=== PATIENT | male | born 1945 | race African-American/Black ===

== ENCOUNTER 2016-09-16 21:14 | Inpatient (IN) ==
--- NOTE | 2016-09-16 21:50 | Emergency Department Note ---
Richard Portillo Gwan, am scribing for, and in the presence of, Christopher Obregon MD 21:42. Sabas Portillo Robert M, MD, personally performed the services described in this documentation, ascribed by Ramakrishna Ramos in my presence, and it is both accurate and complete . Arrival - Arrival Chief Complaint: Shortness of Breath Stated Complaint: short of breath ED Nursing Triage Note: Pt transfer from [facility] with CHF exacerbation. Pt was given 100mg Lasix IV and has had a total urine oupt of 3400liters. Pt stable at this time. EKG obatined during triage. Mode of Arrival: Stretcher Limitations: No Limitations Source: Patient, Old Records Reviewed, RN Notes Reviewed Time Seen by Provider: 09/16/16 21:24 - History of Present Illness HPI Narrative: Patient is a 71 y/o black male who presents to the ED via EMS transferred from [facility] for further evaluation of CHF exacerbation. Patient confiremd that his sxs of chest pain and SOB onset 1 week ago and began to worsen prompting his visit to [facility]. After further review, pt was prompted to report to [place] ED for further evaluation. Patient denies any fever. While at [facility]; pt recieved 100mg Lasix with result of 3400 liters void. During exam , pt appeared stable with no signs of distress. Onset (ago): hour(s) Consistency: constant Severity: moderate Allergies/Adverse Reactions: Allergies Allergy/AdvReac Type Severity Reaction Status Date / Time iodine Allergy Vomiting Verified 09/16/16 21:24 Shellfish AdvReac Abdominal Verified 09/16/16 21:24 Pain Home Medications: Home Medications Medication Instructions Recorded Confirmed Type Albuterol Inhaler [Proventil 1 puff INH Q6H PRN #1 inhaler 12/31/14 05/15/16 Rx Inhaler] Aspirin [Ecotrin] 81 mg PO DAILY 12/31/14 05/15/16 History Furosemide Tab [Lasix Tab] 80 mg PO BID DIURETIC 12/31/14 05/15/16 History Gabapentin Cap/Tab [Neurontin 600 mg PO BID 12/31/14 05/15/16 History Cap/Tab] Glimepiride [Amaryl] 4 mg PO BID W/MEALS 12/31/14 05/15/16 History Insulin Glargine [Lantus] 45 unit SUBCUT BEDTIME 12/31/14 05/15/16 History Ipratropium/Albuterol Sulfate 3 ml IH 5X DAILY 12/31/14 05/15/16 History [Iprat-Albut 0.5-3(2.5) mg/3 ml] Isosorbide Mononitrate [Imdur] 60 mg PO DAILY 12/31/14 05/15/16 History Linaclotide [Linzess] 145 mcg PO AC BREAKFAST 12/31/14 05/15/16 History Memantine [Namenda] 7 mg PO DAILY 12/31/14 05/15/16 History Nitroglycerin [Nitroglycerin SL 0.4 mg SL Q5M PRN 12/31/14 05/15/16 History Tab] Pantoprazole Tab [Protonix Tab] 20 mg PO BID 12/31/14 05/15/16 History Potassium Chloride Cap/Tab [K Dur] 20 meq PO TID 12/31/14 05/15/16 History Ramipril [Altace] 10 mg PO DAILY 12/31/14 05/15/16 History Warfarin [Coumadin] 5 mg PO QOTHER DAY 12/31/14 05/15/16 History metOLazone [Zaroxolyn] 2.5 mg PO DAILY 12/31/14 05/15/16 History Albuterol Inhaler [Proventil 2 puff INH Q4H PRN #1 inhaler 07/22/15 05/15/16 Rx Inhaler] Baclofen Tab [Lioresal] 10 mg PO BEDTIME 07/22/15 05/15/16 History Oxycodone HCl/Acetaminophen 1 tablet PO 5X DAILY PRN 07/22/15 05/15/16 History [Percocet 10-325 mg Tablet] Warfarin [Coumadin] 2.5 mg PO QOTHER DAY 07/22/15 05/15/16 History Alum/Mag/Simeth Max Str Liquid 30 ml PO Q4H PRN #0 udcup 07/26/15 05/15/16 Rx [Mylanta Max Strength Liquid] Azithromycin [Zithromax] 500 mg PO DAILY 7 Days 07/26/15 05/15/16 Rx Budesonide/Formoterol 160-4.5 2 puff INH BID #1 inhaler 07/26/15 05/15/16 Rx [Symbicort 160-4.5] Carvedilol [Coreg] 12.5 mg PO BID tablet 07/26/15 05/15/16 Rx Magnesium Chloride [Slow Mag] 64 mg PO BID tablet 07/26/15 05/15/16 Rx predniSONE TAB [PredniSONE] 20 mg PO DAILY #10 tablet 07/26/15 05/15/16 Rx Ciprofloxacin Tab [Cipro Tab] 500 mg PO BID #14 tablet 05/16/16 Rx Review of System - Review of System 12 point system: reviewed and no additional remarkable complaints except as stated - Review of System Constitutional: Absent: chills, fever Eyes: Absent: discharge, pain Head/Ears/Nose/Throat: Absent: earache Respiratory: Present: as per HPI, other (shortness of breathe ) Cardiovascular: Present: as per HPI, chest pain Gastrointestinal: Absent: abdominal pain, nausea, vomiting, diarrhea Genitourinary male: Absent: urgency, dysuria Musculoskeletal: Absent: arm pain, back pain, leg pain, neck pain Skin: Absent: rash, lesions Neurological: Absent: headache, weakness Medical,Surgical,& Family Hx - Medical History Cardio: History of: Congenital Heart Disease, Hypertension, [place], Pacemaker Neurology: History of: Cerebrovascular Accident (with residual left lower extremity weakness) No history of: Seizures Endocrine: History of: Diabetes Mellitus (IDDM), Dyslipidemia Respiratory: History of: COPD, Pneumonia - Surgical History Cardiac Surgeries: Sugical HX of: Cardiac Surgery (triple bypass), Internal Defibrillator Orthopedic Surgeries: Surgical HX of;: Orthopedic Surgery (right rotator cuff) - Family History Family History: Reports;: Family Hypertension - Social History Smoking Status: Current every day smoker Frequency of Alcohol Use: None Type of Drug Use: None Exam Vital Signs: Vital Signs Temperature 98.6 F 09/16/16 21:18 Pulse Rate 102 H 09/16/16 21:18 Respiratory Rate 18 09/16/16 21:35 Blood Pressure 156/115 09/16/16 21:18 O2 Sat by Pulse Oximetry 90 L 09/16/16 21:18 - General General appearance: alert, in no apparent distress - Head Head exam: Present: atraumatic, normocephalic - Eye Eye exam: Present: normal appearance, PERRL, EOMI - ENT ENT exam: Present: normal oropharynx, mucous membranes moist, TM's normal bilaterally, normal external ear exam - Neck Neck exam: Present: full ROM, trachea midline. Absent: tenderness - Chest Chest inspection: Present: symmetric chest wall rise. Absent: tenderness - Abdominal Exam Abdominal exam: Present: soft, normal bowel sounds. Absent: tenderness - Extremities Exam Extremities exam: Present: full ROM. Absent: tenderness - Back Exam Back exam: Present: full ROM. Absent: tenderness - Neurological Exam Neurological exam: Present: alert, oriented X3, CN II-XII intact. Absent: motor sensory deficit - Psychiatric Psychiatric exam: Present: normal affect, normal mood - Skin Skin exam: Present: warm, dry, intact, normal color Course - Consultations Consultation #1: Dr. Scot Steward will evaluate and admit the patient. Time: 22:52 Disposition Clinical Impression: Congestive heart failure, Chronic low back pain with bilateral sciatica, Bronchitis, Non-cardiac chest pain, COPD (chronic obstructive pulmonary disease) Case discussed with: patient, patient's family Disposition: Still a Patient Condition: Stable Time of Disposition: 22:52
--- NOTE | 2016-09-16 22:58 | Hospitalist History & Physical ---
Assessment and Plan (1) Acute exacerbation of CHF (congestive heart failure) Status: Acute Current Visit: Yes (2) COPD (chronic obstructive pulmonary disease) Status: Acute Current Visit: Yes (3) Chronic low back pain with bilateral sciatica Status: Acute Current Visit: Yes (4) Congestive heart failure Status: Acute Assessment and plan: Our plan for this patient will be diuresis with Lasix. Will consult cardiology since that he is a patient of Dr. Lagunas. Will have schedule breathing treatments for this patient. It does seem more like a congestive heart failure exacerbation over a COPD exacerbation. Current Visit: Yes History of Present Illness Chief complaint: Shortness of breath History of present illness: Mr. Kim is a 71 year old male with past medical history significant for COPD congestive heart failure chronic back pain who was in his normal state of health till today. Patient reports that his feet and hands it swelled up today. His reports that he is O2 sats were low and is complaining about shortness of breath. She increase his oxygen. Patient's been having some chest pain off and on. He says is not stabbing just a tight sensation. He notes that he cannot lay down flat at times. He went to [facility] and they called who was residential direct support professional for Dr. Lagunas's office. The recommended that he be sent up to our emergency room for further evaluation. Patient was given IV Lasix reports feeling much better I was consulted for admission. I am admitting him to the ER. Home Medications Medication Instructions Recorded Confirmed Type Albuterol Inhaler [Proventil 1 puff INH Q6H PRN #1 inhaler 12/31/14 05/15/16 Rx Inhaler] Aspirin [Ecotrin] 81 mg PO DAILY 12/31/14 05/15/16 History Furosemide Tab [Lasix Tab] 80 mg PO BID DIURETIC 12/31/14 05/15/16 History Gabapentin Cap/Tab [Neurontin 600 mg PO BID 12/31/14 05/15/16 History Cap/Tab] Glimepiride [Amaryl] 4 mg PO BID W/MEALS 12/31/14 05/15/16 History Insulin Glargine [Lantus] 45 unit SUBCUT BEDTIME 12/31/14 05/15/16 History Ipratropium/Albuterol Sulfate 3 ml IH 5X DAILY 12/31/14 05/15/16 History [Iprat-Albut 0.5-3(2.5) mg/3 ml] Isosorbide Mononitrate [Imdur] 60 mg PO DAILY 12/31/14 05/15/16 History Linaclotide [Linzess] 145 mcg PO AC BREAKFAST 12/31/14 05/15/16 History Memantine [Namenda] 7 mg PO DAILY 12/31/14 05/15/16 History Nitroglycerin [Nitroglycerin SL 0.4 mg SL Q5M PRN 12/31/14 05/15/16 History Tab] Pantoprazole Tab [Protonix Tab] 20 mg PO BID 12/31/14 05/15/16 History Potassium Chloride Cap/Tab [K Dur] 20 meq PO TID 12/31/14 05/15/16 History Ramipril [Altace] 10 mg PO DAILY 12/31/14 05/15/16 History Warfarin [Coumadin] 5 mg PO QOTHER DAY 12/31/14 05/15/16 History metOLazone [Zaroxolyn] 2.5 mg PO DAILY 12/31/14 05/15/16 History Albuterol Inhaler [Proventil 2 puff INH Q4H PRN #1 inhaler 07/22/15 05/15/16 Rx Inhaler] Baclofen Tab [Lioresal] 10 mg PO BEDTIME 07/22/15 05/15/16 History Oxycodone HCl/Acetaminophen 1 tablet PO 5X DAILY PRN 07/22/15 05/15/16 History [Percocet 10-325 mg Tablet] Warfarin [Coumadin] 2.5 mg PO QOTHER DAY 07/22/15 05/15/16 History Alum/Mag/Simeth Max Str Liquid 30 ml PO Q4H PRN #0 udcup 07/26/15 05/15/16 Rx [Mylanta Max Strength Liquid] Azithromycin [Zithromax] 500 mg PO DAILY 7 Days 07/26/15 05/15/16 Rx Budesonide/Formoterol 160-4.5 2 puff INH BID #1 inhaler 07/26/15 05/15/16 Rx [Symbicort 160-4.5] Carvedilol [Coreg] 12.5 mg PO BID tablet 07/26/15 05/15/16 Rx Magnesium Chloride [Slow Mag] 64 mg PO BID tablet 07/26/15 05/15/16 Rx predniSONE TAB [PredniSONE] 20 mg PO DAILY #10 tablet 07/26/15 05/15/16 Rx Ciprofloxacin Tab [Cipro Tab] 500 mg PO BID #14 tablet 05/16/16 Rx Allergies Allergy/AdvReac Type Severity Reaction Status Date / Time iodine Allergy Vomiting Verified 09/16/16 21:24 Shellfish AdvReac Abdominal Verified 09/16/16 21:24 Pain Medical,Surgical,& Family Hx - Medical History Cardio: History of: Congenital Heart Disease, Hypertension, [place], Pacemaker Neurology: History of: Cerebrovascular Accident (with residual left lower extremity weakness) No history of: Seizures Endocrine: History of: Diabetes Mellitus (IDDM), Dyslipidemia Respiratory: History of: COPD, Pneumonia - Surgical History Cardiac Surgeries: Sugical HX of: Cardiac Surgery (triple bypass), Internal Defibrillator Orthopedic Surgeries: Surgical HX of;: Orthopedic Surgery (right rotator cuff) - Family History Family History: Reports;: Family Hypertension - Social History Smoking Status: Current every day smoker Frequency of Alcohol Use: None Type of Drug Use: None 12 point system: reviewed and no additional remarkable complaints except as stated Exam - Constitutional Vitals: Period Temp Pulse Resp BP Sys/Gutiérrez Pulse Ox Last 24 Hr 98.6 F-98.6 F 102-102 18-18 156-156/115-115 90 - General General appearance: alert, in no apparent distress - Head Head exam: Present: atraumatic, normocephalic - Eye Eye exam: Present: normal appearance, PERRL, EOMI - ENT ENT exam: Present: normal oropharynx, mucous membranes moist, TM's normal bilaterally, normal external ear exam - Neck Neck exam: Present: full ROM, trachea midline. . - Chest Chest inspection: Present: symmetric chest wall rise. Irregular irregular . - Abdominal Exam Abdominal exam: Present: soft, normal bowel sounds. . - Extremities Exam Extremities exam: Present: full ROM. Some bilateral edema noted in lower extremities - Back Exam Back exam: Present: full ROM. Absent: tenderness - Neurological Exam Neurological exam: Present: alert, oriented X3, CN II-XII intact. - Psychiatric Psychiatric exam: Present: normal affect, normal mood - Skin Skin exam: Present: warm, dry, intact, normal color Results - Labs Labs: Labs from outside facility white count 5.3 hemoglobin 11.3 hematocrit 35.7 platelet count 122 albumin 3.9 alk phos 81 ALT 25 AST 26 BUN 13 calcium 9.0 creatinine 1.22 carbon dioxide 27 glucose 223 potassium 4.2 chloride sodium 144 total bili 0.3 total protein 6.9 troponin was less than 0.03 proBNP was 2894
[2016-09-16] MEDS ORDERED: MAGNESIUM SULF RIDER 2 GM in PREMIX 1 EACH IV PRN (23:03)
[2016-09-16] MEDS ORDERED: ONDANSETRON 4 MG/2 ML VIAL IV PRN (23:03)
[2016-09-16] MEDS ORDERED: MAGNESIUM SULF RIDER 4 GM in PREMIX 1 EACH IV PRN (23:03)
[2016-09-16] MEDS ORDERED: GLUCAGON 1 MG VIAL IM PRN ×2 (23:03)
[2016-09-16] MEDS ORDERED: DEXTROSE 50% 25 GM/50 ML VIAL IV PRN ×2 (23:03)
[2016-09-16] MEDS ORDERED: ALBUTEROL 1.25 MG/3 ML NEB RESP TX PRN (23:26)
[2016-09-17] MEDS: ALBUTEROL/IPRATROPIUM 3 ML NEB RESP TX SCH ×4 (00:32→19:05)
[2016-09-17] MEDS: NITROGLYCERIN 2% OINT 1 INCH/GM PACK TOP SCH ×2 (00:55→06:57)
[2016-09-17 02:45] LABS: Basophils % 0.2 % (0.0-0.8); Hematocrit 34.4 VOL% (42.0-52.0); Hemoglobin 11.5 GM/DL (14.0-18.0); Immature Granulocytes % 0.2 %; Immature Granulocytes Absolute 0.01 #; Lymphocytes # 0.8 10*3/uL (1.4-4.0); Lymphocytes % 18.2 % (21.2-54.2); Mean Corpuscular HGB Conc 33.4 GM/DL (32-36); Mean Corpuscular Hemoglobin 30 PG (27-34); Mean Corpuscular Volume 89.6 FL (87-102); Mean Platelet Volume 11.1 FL (9.6-12.0); Monocytes # 0.1 10*3/uL (0.11-0.8); Monocytes % 2.7 % (1.7-12.7); Neutrophils # 3.5 10*3/uL (1.4-7.4); Neutrophils % 78.7 % (38.7-73.9); Platelet Count 132 T/CUMM (130-400); Red Blood Count 3.84 MC/CUMM (3.8-5.5); Red Cell Distribution Width 13.8 % (9.3-17.3); White Blood Count 4.4 T/CUMM (4-12)
[2016-09-17 03:04] LABS: INR 1.4; PT Patient Result 15.3 SECS
[2016-09-17 03:27] LABS: Troponin I Only < 0.015 NG/ML (0.00-0.045)
[2016-09-17 03:29] LABS: Albumin 3.5 G/DL (3.4-5.0); Bilirubin,Total 0.5 MG/DL (0.2-1.0); Calcium 8.9 MG/DL (8.5-10.1); Osmolality,Calculated 290.4 MOS/KG (273-304); Potassium 3.6 MMOL/L (3.5-5.1); Total Protein 7.1 G/DL (6.4-8.3)
[2016-09-17] MEDS ORDERED: POTASSIUM CHLORIDE 20 MEQ TABLET PO ONE (07:39)
--- NOTE | 2016-09-17 07:40 | XRay Report ---
Portable chest Date: 09/17/2016 Clinical history: Shortness of breath Comparison: 09/16/2016 Technique: Portable AP sitting chest Findings: The heart remains minimally enlarged with prior median sternotomy and stable left subclavian atrioventricular AICD. Progressive parenchymal findings at the right lung base with small right pleural effusion. Stable mediastinum and osseous structures. Post operative findings in the right shoulder. Impression: Progressive infiltration or other pleural-based pathology at the right lung base with small right pleural effusion. Status post median sternotomy with chronic scarring. Stable left subclavian atrioventricular pacemaker. Follow-up chest x-ray recommended. PROCEDURE INTERPRETED AT [facility] DEPARTMENT OF RADIOLOGY Final Report Signed by: Dr. Catherine Marquis
[2016-09-17] MEDS: FUROSEMIDE 40 MG/4 ML VIAL IV SCH ×2 (08:20→16:51)
[2016-09-17] MEDS: INSULIN REGULAR 100 UNIT/ML SUBCUT SCH ×4 (08:20→21:38)
[2016-09-17] MEDS ORDERED: hydrALAZINE 20 MG/1 ML VIAL IV PRN (08:45)
--- NOTE | 2016-09-17 08:55 | Cardiology Consult Note ---
Assessment and Plan - Time spent with patient Time spent with patient: Greater than 30 minutes (1) Acute exacerbation of CHF (congestive heart failure) Status: Acute Assessment and plan: SEE PLAN OF CARE LISTED BELOW Current Visit: Yes Qualifiers: Congestive heart failure type: systolic Qualified Code(s): I50.23 - Acute on chronic systolic (congestive) heart failure (2) Atrial fibrillation Status: Acute Assessment and plan: SEE PLAN OF CARE LISTED BELOW Current Visit: Yes Qualifiers: Atrial fibrillation type: chronic Qualified Code(s): I48.2 - Chronic atrial fibrillation (3) COPD with exacerbation Status: Acute Current Visit: No (4) Chronic anticoagulation Status: Chronic Assessment and plan: SEE PLAN OF CARE LISTED BELOW Current Visit: Yes (5) Hypertension Status: Chronic Assessment and plan: SEE PLAN OF CARE LISTED BELOW Current Visit: Yes (6) Dyslipidemia Status: Chronic Assessment and plan: SEE PLAN OF CARE LISTED BELOW Current Visit: Yes (7) Coronary artery disease involving coronary bypass graft Status: Chronic Assessment and plan: SEE PLAN OF CARE LISTED BELOW Current Visit: Yes (8) Diabetes Status: Chronic Assessment and plan: SEE PLAN OF CARE LISTED BELOW Current Visit: Yes Qualifiers: Diabetes mellitus type: type 2 (9) Smoker Status: Chronic Assessment and plan: SEE PLAN OF CARE LISTED BELOW Current Visit: Yes (10) Dyspnea on exertion Status: Acute Assessment and plan: SEE PLAN OF CARE LISTED BELOW Current Visit: Yes (11) Ischemic cardiomyopathy Status: Chronic Assessment and plan: SEE PLAN OF CARE LISTED BELOW Current Visit: Yes History of Present Illness - Data of Consult Patient: known to practice within the last 3 years Consult date: 09/17/16 Requesting Physician: Scot Steward - Consult Narrative Reason for consult: CP, SOB; CHF EXAC History of present illness: Sample Worker: Dr. Lagunas Mr. Kim is a 71 year old male with known history of coronary artery disease, routinely followed by Dr. Lagunas. Patient was transferred to [facility] with complaints of chest pain and shortness of breath he has cardiac risk factors significant for known history of coronary artery disease, diabetes, hypertension, advanced age, sedentary lifestyle and current everyday smoker. patient has a past medical history of dementia, atrial fibrillation (chronically anticoagulated with Coumadin), ischemic cardiomyopathy (most recent ejection fraction 25% in 2011) and COPD. Patient underwent coronary artery bypass grafting in 2002 with ALCANTAR to LAD, SVG to circumflex artery and SVG to diagonal. Patient's most recent heart catheterization was performed in [address] Lagunas. At that time, 1 of the 3 grafts were patent with a ALCANTAR graft to LAD widely patent without evidence of significant stenosis. Diffuse severe left ventricular hypokinesis, overall ejection fraction in the 25% range. SVG to marginal completely occluded and SVG to diagonal completely occluded. Widely patent stent to the circumflex artery. Patient has not followed up in the cardiology clinic in several years. Patient was transferred from [facility] yesterday evening with complaints of chest pain and shortness of breath. Patient is a very poor historian as he has history of dementia. When asked the same question 3 different times, he will give 3 different answers. Review of systems is very unreliable. Patient was seen and examined on the telemetry unit with Dr. Temple. He reports that he was never having any chest pain, heaviness or tightness in that he presented to the emergency department with complaints of abdominal pain. He does confirm dyspnea on exertion and that he cannot walk very far without tiring out. Subsequently, he reported to the emergency department for further evaluation. Upon arrival [facility] he was noted to be in atrial fibrillation with RVR. He was then transported to [facility] for further evaluation. At our facility, Troponin has been negative 1. EKG revealed atrial fibrillation with a controlled ventricular response with ST changes anteriolaterally. Chest x-ray reveals progressive parenchymal findings in the right lung base with small right pleural effusion. Cardiomegaly is noted. Echocardiogram has been ordered per hospital medicine, results are pending. On exam, patient does have a wheezing along with hepatojugular reflux. Patient symptoms are most likely multifactorial including congestive heart failure and COPD exacerbation. CHF exacerbation could possibly be secondary to patient's atrial fibrillation with RVR. Patient has chronic atrial fibrillation, now rate controlled. At this point, we will diurese patient with IV Lasix and continue his heart failure medication regimen. Await echocardiogram results. Continue to cycle cardiac biomarkers and EKGs as patient does have history of coronary artery disease and this could be playing a factor as well. Will discuss with Dr. Temple and await his additional recommendations. ASSESSMENT/PLAN: 1. CHF EXACERBATION, ACUTE ON CHRONIC SECONDARY TO SYSTOLIC DYSFUNCTION - Patient's most recent ejection fraction was noted to be 25% per her last heart catheterization 2011. Echocardiogram has been ordered, results are pending in order to reassess patient's LV function. Continue IV diuresis with Lasix as patient is diuresing well. Daily weights and strict I's and O's. Will make further recommendations after echocardiogram has been reviewed. 2. ATRIAL FIBRILLATION WITH RVR - This appears to be chronic. Suspect that this could have exacerbated patient's congestive heart failure. BNP pending. Now rate controlled with current medication regimen. Historically, he has been anticoagulated with Coumadin. INR today is subtherapeutic at 1.4. Once patient's home medications have been confirmed per nursing staff we will reinitiate patient's Coumadin. Monitor with daily INR. 3. CAD, STATUS POST CABG - Patient underwent CABG in 2002 with SVG to diagonal , SVG to circumflex and ALCANTAR to LAD. At this point, we will cycle cardiac biomarkers and EKGs as this may be playing an underlying role in patient's congestive heart failure exacerbation. He is currently without chest pain, heaviness and tightness. Echocardiogram results are pending. 4. ISCHEMIC CARDIOMYOPATHY - Ejection fraction was noted to be 25% per left heart catheterization 2011. Echocardiogram has been ordered in order to reevaluate patient's LV function. Results are pending. At this point, we will continue patient's current medication regimen with beta-kellie and VILMA inhibitor. Continue IV diuresis. Will consider adding Aldactone if needed. 5. COPD EXACERBATION - Wheezing noted per exam. Will continue current plan of care with breathing treatments. Defer management to hospital medicine. 6. DIABETES - Management per attending. 7. DYSLIPIDEMIA - Lipid panel has been noted to a.m. labs. After reviewing patient's home medications, patient is not on a lipid-lowering agent. At this point I will challenge patient on low-dose Lipitor as patient is a diabetic and has coronary artery disease. 8. CHRONIC ANTICOAGULATION - At this point, patient's home medications have not been reviewed and confirmed. We will continue patient's Coumadin dose once nurses confirm patient's home medications. INR today is 1.4. Daily INRs. 9. CURRENT EVERYDAY SMOKER - Smoking cessation encouraged. 10. OTTO - Most likely multifactorial including congestive heart failure and COPD exacerbation. Will treat patient for both. 11. HYPERTENSION - This is suboptimally controlled. Will adjust patient's medication regimen. Will discuss with Dr. Temple and await his additional recommendations. CC: Yovany White MD - Home Medications and Allergies Home Medications: Home Medications Medication Instructions Recorded Confirmed Type Albuterol Inhaler [Proventil 1 puff INH Q6H PRN #1 inhaler 12/31/14 05/15/16 Rx Inhaler] Aspirin [Ecotrin] 81 mg PO DAILY 12/31/14 05/15/16 History Furosemide Tab [Lasix Tab] 80 mg PO BID DIURETIC 12/31/14 05/15/16 History Gabapentin Cap/Tab [Neurontin 600 mg PO BID 12/31/14 05/15/16 History Cap/Tab] Glimepiride [Amaryl] 4 mg PO BID W/MEALS 12/31/14 05/15/16 History Insulin Glargine [Lantus] 45 unit SUBCUT BEDTIME 12/31/14 05/15/16 History Ipratropium/Albuterol Sulfate 3 ml IH 5X DAILY 12/31/14 05/15/16 History [Iprat-Albut 0.5-3(2.5) mg/3 ml] Isosorbide Mononitrate [Imdur] 60 mg PO DAILY 12/31/14 05/15/16 History Linaclotide [Linzess] 145 mcg PO AC BREAKFAST 12/31/14 05/15/16 History Memantine [Namenda] 7 mg PO DAILY 12/31/14 05/15/16 History Nitroglycerin [Nitroglycerin SL 0.4 mg SL Q5M PRN 12/31/14 05/15/16 History Tab] Pantoprazole Tab [Protonix Tab] 20 mg PO BID 12/31/14 05/15/16 History Potassium Chloride Cap/Tab [K Dur] 20 meq PO TID 12/31/14 05/15/16 History Ramipril [Altace] 10 mg PO DAILY 12/31/14 05/15/16 History Warfarin [Coumadin] 5 mg PO QOTHER DAY 12/31/14 05/15/16 History metOLazone [Zaroxolyn] 2.5 mg PO DAILY 12/31/14 05/15/16 History Albuterol Inhaler [Proventil 2 puff INH Q4H PRN #1 inhaler 07/22/15 05/15/16 Rx Inhaler] Baclofen Tab [Lioresal] 10 mg PO BEDTIME 07/22/15 05/15/16 History Oxycodone HCl/Acetaminophen 1 tablet PO 5X DAILY PRN 07/22/15 05/15/16 History [Percocet 10-325 mg Tablet] Warfarin [Coumadin] 2.5 mg PO QOTHER DAY 07/22/15 05/15/16 History Alum/Mag/Simeth Max Str Liquid 30 ml PO Q4H PRN #0 udcup 07/26/15 05/15/16 Rx [Mylanta Max Strength Liquid] Azithromycin [Zithromax] 500 mg PO DAILY 7 Days 07/26/15 05/15/16 Rx Budesonide/Formoterol 160-4.5 2 puff INH BID #1 inhaler 07/26/15 05/15/16 Rx [Symbicort 160-4.5] Carvedilol [Coreg] 12.5 mg PO BID tablet 07/26/15 05/15/16 Rx Magnesium Chloride [Slow Mag] 64 mg PO BID tablet 07/26/15 05/15/16 Rx predniSONE TAB [PredniSONE] 20 mg PO DAILY #10 tablet 07/26/15 05/15/16 Rx Ciprofloxacin Tab [Cipro Tab] 500 mg PO BID #14 tablet 05/16/16 Rx Allergies/Adverse Reactions: Allergies Allergy/AdvReac Type Severity Reaction Status Date / Time iodine Allergy Vomiting Verified 09/16/16 21:24 Shellfish AdvReac Abdominal Verified 09/16/16 21:24 Pain ROS unobtainable: due to dementia Medical,Surgical,& Family Hx - Medical History Cardio: History of: Cardiac Dysrhythmia (A FIB), Congenital Heart Disease, CHF, CAD, Hypertension, [place], Pacemaker (AICD) Neurology: History of: Cerebrovascular Accident (with residual left lower extremity weakness) No history of: Seizures Endocrine: History of: Diabetes Mellitus (NIDDM), Dyslipidemia Respiratory: History of: COPD, Pneumonia - Surgical History Cardiac Surgeries: Sugical HX of: Cardiac Catheterization, Cardiac Surgery ( triple bypass), Internal Defibrillator Orthopedic Surgeries: Surgical HX of;: Orthopedic Surgery (right rotator cuff) - Family History Family History: Reports;: Family Hypertension - Social History Smoking Status: Current every day smoker Frequency of Alcohol Use: None Type of Drug Use: None Physical Examination Vital Signs Temp Pulse Resp BP Pulse Ox 98.6 F 102 H 18 156/115 90 L 09/16/16 21:18 09/16/16 21:18 09/16/16 21:18 09/16/16 21:18 09/16/16 21:18 Other: General: Demented. Appears well with no apparent distress. Appears comfortable. HEENT: PERRL, normocephalic, atraumatic. Mucous membranes moist. No jaundice noted. Conjunctiva moist and clear, sclerae anicteric Neck: No JVD/HJR, no thyromegaly or lymphadenopathy noted. Hepatojugular reflux noted. Cardiac: Irregular rhythm. No murmur rub or gallop. Lungs: Clear to auscultation with wheezing noted. Requiring oxygen via nasal cannula. Abdomen: Soft, bowel sounds normoactive. Nontender and nondistended. No abdominal bruit or thrill noted. No masses noted. Extremities: No clubbing, cyanosis noted. Trace edema to bilateral lower extremities. Skin: No unusual lesions or rashes. No skin breakdown appreciated. Neuro: Demented. Oriented to self. Moves all extremities. No essential tremor is appreciated. Result/EKG - Labs CBC & BMP: 09/17/16 02:25 09/17/16 02:25 Lab Results: I have reviewed the past 24 hour labs Labs: Laboratory Results - last 24 hr 09/17/16 09/17/16 09/17/16 02:25 02:25 02:25 WBC 4.4 RBC 3.84 Hgb 11.5 L Hct 34.4 L MCV 89.6 MCH 30 MCHC 33.4 RDW 13.8 Plt Count 132 MPV 11.1 Neut % (Auto) 78.7 H Lymph % (Auto) 18.2 L Sunflower % (Auto) 2.7 Eos % (Auto) 0.0 Baso % (Auto) 0.2 Neut # (Auto) 3.5 Lymph # (Auto) 0.8 L Sunflower # (Auto) 0.1 L Eos # (Auto) 0.0 Baso # (Auto) 0.0 Immature Gran % 0.2 Nucleated RBC % 0.0 Immature Gran # 0.01 Nucleated RBCs # 0.00 INR PT Patient/Control Mix Sodium 140 Potassium 3.6 Chloride 100 Carbon Dioxide 30 Anion Gap 13.6 BUN 15 Creatinine 1.20 GFR Calculation 88 BUN/Creatinine Ratio 12.00 Glucose 304 H POC Glucose Calculated Osmolality 290.4 Calcium 8.9 Total Bilirubin 0.50 AST 17 ALT 26 Alkaline Phosphatase 98 Total Creatine Kinase 108 CK-MB (CK-2) 1.1 Troponin I < 0.015 Total Protein 7.1 Albumin 3.5 Globulin 3.6 H Albumin/Globulin Ratio 0.9 L 09/17/16 09/17/16 02:25 07:42 WBC RBC Hgb Hct MCV MCH MCHC RDW Plt Count MPV Neut % (Auto) Lymph % (Auto) Sunflower % (Auto) Eos % (Auto) Baso % (Auto) Neut # (Auto) Lymph # (Auto) Sunflower # (Auto) Eos # (Auto) Baso # (Auto) Immature Gran % Nucleated RBC % Immature Gran # Nucleated RBCs # INR 1.4 PT Patient/Control Mix 15.3 Sodium Potassium Chloride Carbon Dioxide Anion Gap BUN Creatinine GFR Calculation BUN/Creatinine Ratio Glucose POC Glucose 329 H Calculated Osmolality Calcium Total Bilirubin AST ALT Alkaline Phosphatase Total Creatine Kinase CK-MB (CK-2) Troponin I Total Protein Albumin Globulin Albumin/Globulin Ratio - EKG EKG results: interpreted by me EKG shows: atrial fibrillation
[2016-09-17] MEDS ORDERED: RAMIPRIL 5 MG CAPSULE PO SCH ×2 (09:00→09:48)
[2016-09-17] MEDS: CARVEDILOL 12.5 MG TABLET PO SCH ×3 (09:50→23:10)
[2016-09-17] MEDS: ISOSORBIDE MONONITRATE 60 MG TABLET PO SCH (09:50)
[2016-09-17] MEDS: oxyCODONE/ACETAMINOPHEN 5-325 MG TABLET PO PRN ×3 (09:52→23:11)
--- NOTE | 2016-09-17 10:13 | ECHO Report ---
Deanna Kim Exam Date: 09/17/2016 08:52 Referring Physician: Technologist: Age: 71 Ht (in): Wt (lb): Gender: M Exam Location: [facility] Echo Indications: BP: / HR: Rhythm: Sinus Technical Quality: good IMPRESSIONS The overall ejection fraction appears to be approximately 45%. Diastolic parameters are equivocal. Tricuspid valve is normal there is mild tricuspid regurgitation peak velocity of 3.08 m/s corresponds with right ventricular cell pressure of 38 mmHg plus the right atrial pressure. Pulmonic valve is normal there is trivial pulmonic insufficiency. There is mild central jet of mitral regurgitation MEASUREMENTS (Male / Female) Normal Values 2D ECHO LV Diastolic Diameter PLAX 6.0 cm 4.2 - 5.9 / 3.9 - 5.3 cm LV Systolic Diameter PLAX 4.4 cm LV Fractional Shortening PLAX 27.1 % IVS Diastolic Thickness 1.1 cm 0.6 - 1.0 / 0.6 - 0.9 cm LVPW Diastolic Thickness 1.1 cm 0.6 - 1.0 / 0.6 - 0.9 cm RV Internal Dim ED PLAX 4.8 cm Aortic Root Diameter 4.0 cm LA Systolic Diameter LX 5.0 cm 3.0 - 4.0 / 2.7 - 3.8 cm DOPPLER TR Peak Velocity 308.0 cm/s TR Peak Gradient 37.9 mmHg FINDINGS Left Ventricle The overall ejection fraction appears to be approximately 45%. There is no clear regional wall motion abnormality. The patient is in atrial fibrillation which makes assessment of LV function slightly more difficult. Diastolic parameters are equivocal. Right Ventricle Right ventricular cavity slightly enlarged. Right Atrium Right atrium is enlarged. Left Atrium Left atrium is enlarged Mitral Valve There is mild central jet of mitral regurgitation Aortic Valve Aortic valve is tricuspid there is no stenosis or insufficiency documented Tricuspid Valve Tricuspid valve is normal there is mild tricuspid regurgitation peak velocity of 3.08 m/s corresponds with right ventricular cell pressure of 38 mmHg plus the right atrial pressure Pulmonic Valve Pulmonic valve is normal there is trivial pulmonic insufficiency Pericardium There is no pericardial effusion Aorta Limited visualization of the thoracic aorta is normal. Tamera Temple (Electronically Signed) Final Date: 17 September 2016 10:12
[2016-09-17 11:30] LABS: Troponin I Only < 0.015 NG/ML (0.00-0.045)
--- NOTE | 2016-09-17 11:34 | EKG Report ---
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
--- NOTE | 2016-09-17 12:51 | Hospitalist Progress Note ---
Assessment and Plan (1) Ischemic cardiomyopathy Status: Chronic Assessment and plan: The overall ejection fraction appears to be approximately 45%. Diastolic parameters are equivocal. Tricuspid valve is normal there is mild tricuspid regurgitation peak velocity of 3.08 m/s corresponds with right ventricular cell pressure of 38 mmHg plus the right atrial pressure. Pulmonic valve is normal there is trivial pulmonic insufficiency. There is mild central jet of mitral regurgitation Current Visit: Yes (2) History of atrial fibrillation Status: Acute Current Visit: No (3) Acute exacerbation of CHF (congestive heart failure) Status: Acute Assessment and plan: Continue IV Lasix. Home medications reviewed and reconciled. Cardiology consulted. Current Visit: Yes Qualifiers: Congestive heart failure type: systolic Qualified Code(s): I50.23 - Acute on chronic systolic (congestive) heart failure (4) Chronic anticoagulation Status: Chronic Assessment and plan: INR subtherapeutic. Continue Coumadin. Current Visit: Yes (5) Hypertension Status: Chronic Current Visit: Yes (6) Dyslipidemia Status: Chronic Current Visit: Yes (7) Diabetes Status: Chronic Current Visit: Yes Qualifiers: Diabetes mellitus type: type 2 Diabetes mellitus long-term insulin use: with long-term use (8) Smoker Status: Chronic Current Visit: Yes (9) COPD (chronic obstructive pulmonary disease) Status: Chronic Current Visit: Yes Qualifiers: COPD type: unspecified COPD Qualified Code(s): J44.9 - Chronic obstructive pulmonary disease, unspecified Hospitalist: Subjective Interval history: 71-year-old male admitted to the hospital with acute exacerbation of congestive heart failure. Patient seen and examined. No acute events overnight. Case discussed with nursing staff. Labs reviewed. Echocardiogram performed this morning shows: The overall ejection fraction appears to be approximately 45%. Diastolic parameters are equivocal. Tricuspid valve is normal there is mild tricuspid regurgitation peak velocity of 3.08 m/s corresponds with right ventricular cell pressure of 38 mmHg plus the right atrial pressure. Pulmonic valve is normal there is trivial pulmonic insufficiency. There is mild central jet of mitral regurgitation Exam - Constitutional Vitals: Period Temp Pulse Resp BP Sys/Gutiérrez Pulse Ox Last 24 Hr 97.4 F-99.4 F 83-102 16-24 133-169/80-115 90-100 Exam: Constitutional System: Mild distress. No tremulousness. Head: Normocephalic, atraumatic. Ears, Nose and Throat System: No pain or tenderness. No epistaxis or discharge Eyes System: Pupils equal, round, and reactive. Extraocular muscles intact. Neck: Supple, without adenopathy, No jugular venous distention. Respiratory System: Chest rales to auscultation at the bases. Cardiovascular System: Heart with regular rate and rhythm. No murmur. GI System: Abdomen soft, nontender. Normo active bowel sounds present. Musculoskeletal System: limbs with bilateral pedal edema. Full distal pulses. Neurological System: No discernable sensory deficit. No aphasia Psychiatric System: Conversation is rational Results - Labs CBC & BMP: 09/17/16 02:25 09/17/16 02:25 Lab Results: I have reviewed the past 24 hour labs
[2016-09-17] MEDS: POTASSIUM CHLORIDE 20 MEQ TABLET PO SCH ×2 (16:51→21:39)
[2016-09-17] MEDS: GLIMEPIRIDE 4 MG TABLET PO SCH (16:51)
[2016-09-17] MEDS: WARFARIN 5 MG TABLET PO SCH (17:59)
[2016-09-17 19:29] LABS: Troponin I Only < 0.015 NG/ML (0.00-0.045)
[2016-09-17] MEDS ORDERED: MORPHINE 2 MG/1 ML SYRINGE ONE (20:18)
[2016-09-17] MEDS ORDERED: NITROGLYCERIN SL 0.4 MG TABLET SL ONE (20:18)
[2016-09-17] MEDS ORDERED: LORazepam 2 MG/1 ML VIAL ONE (20:18)
[2016-09-17] MEDS ORDERED: LORazepam 2 MG/1 ML VIAL IV ONE (20:19)
[2016-09-17] MEDS ORDERED: DILTIAZEM 50 MG/10 ML VIAL IV ONE ×2 (20:28→20:32)
[2016-09-17] MEDS ORDERED: DILTIAZEM 100 MG VIAL.ADD IV ONE (20:28)
[2016-09-17] MEDS ORDERED: methylPREDNISolone SOD SUC 125 MG/2 ML VIAL IV ONE (20:33)
[2016-09-17] MEDS ORDERED: FUROSEMIDE 40 MG/4 ML VIAL IV ONE (20:35)
[2016-09-17] MEDS ORDERED: methylPREDNISolone SOD SUC 125 MG/2 ML VIAL ONE (20:36)
--- NOTE | 2016-09-17 20:37 | Hospitalist Progress Note ---
Assessment and Plan (1) Acute exacerbation of CHF (congestive heart failure) Status: Acute Current Visit: Yes Qualifiers: Congestive heart failure type: systolic Qualified Code(s): I50.23 - Acute on chronic systolic (congestive) heart failure (2) COPD (chronic obstructive pulmonary disease) Status: Chronic Current Visit: Yes Qualifiers: COPD type: unspecified COPD Qualified Code(s): J44.9 - Chronic obstructive pulmonary disease, unspecified (3) Chronic low back pain with bilateral sciatica Status: Acute Current Visit: Yes (4) Congestive heart failure Status: Acute Assessment and plan: Our plan for this patient will be diuresis with Lasix. Will consult cardiology since that he is a patient of Dr. Lagunas. Will have schedule breathing treatments for this patient. It does seem more like a congestive heart failure exacerbation over a COPD exacerbation. Current Visit: Yes Hospitalist: Subjective Interval history: Rapid response was called to the patient room when he was saying that he could not breathe. Nursing felt that his voice was slurred which he does have a baseline slur and ordered a stroke alert. Patient had an emergent CT scan of his head. I went to see the patient upon arrival to the back to the floor. Patient was in severe respiratory distress. I recommended that he be moved down to the unit. Patient is adamant about not want to be intubated. He says that chest compressions are okay. I am going to make him a DO NOT INTUBATE. I will give him extra dose of Lasix now along with a push of IV steroids. Exam - Constitutional Vitals: Period Temp Pulse Resp BP Sys/Gutiérrez Pulse Ox Last 24 Hr 97.4 F-99.4 F 49-102 16-24 133-169/80-115 90-100 Results - Labs CBC & BMP: 09/17/16 02:25 09/17/16 02:25
--- NOTE | 2016-09-17 20:48 | CT Report ---
CT head/brain wo con Indication: Altered LOC. Slurred speech. CT BRAIN WITHOUT CONTRAST DLP: 1053 mGy*cm. One or more of the following dose reduction techniques was used: Automated exposure control, adjustment of the mA and/or kV according the patient size, or use of iterative reconstruction techniques. Comparison: 02/19/2013. Date of admission: 09/17/2016. Technique: Axial noncontrast CT images of the brain were obtained. Findings: Significant generalized atrophy is again shown. Patchy periventricular white matter hypodensity and old lacunar infarct left basal ganglia and joshua radiata demonstrated. No hemorrhage, mass or mass effect. Mandujano-white junction is maintained throughout the remainder of the brain. No bone lesions. Visualized sinuses and mastoid air cells are clear. Impression: No acute intracranial pathology. Generalized atrophy, chronic small vessel ischemic change and old lacunar infarcts left basal ganglia. PROCEDURE INTERPRETED AT [facility] DEPARTMENT OF RADIOLOGY Final Report Signed by: Scot Conklin M.D.
[2016-09-17 20:57] LABS: Albumin 3.7 G/DL (3.4-5.0); Bilirubin,Total 0.6 MG/DL (0.2-1.0); Calcium 9.3 MG/DL (8.5-10.1); Osmolality,Calculated 287.7 MOS/KG (273-304); Potassium 4.6 MMOL/L (3.5-5.1); Total Protein 7.9 G/DL (6.4-8.3)
[2016-09-17] MEDS: DILTIAZEM INJ 100 MG in SODIUM CHLORIDE 0.9% 100 ML IV SCH (20:57)
--- NOTE | 2016-09-17 20:58 | XRay Report ---
XR chest 1V portable Indication: Wheezing. Shortness of breath. Chest one view: Comparison 0554 hours. Borderline cardiomegaly, AICD, median sternotomy wires, stranding of the right lung base, and diffuse interstitial prominence of the lungs appears unchanged. No new infiltrates are shown. No pneumothorax. Impression: No change. PROCEDURE INTERPRETED AT [facility] DEPARTMENT OF RADIOLOGY Final Report Signed by: Scot Conklin M.D.
[2016-09-17] MEDS ORDERED: MORPHINE 2 MG/1 ML SYRINGE IV ONE (20:59)
[2016-09-17] MEDS ORDERED: NITROGLYCERIN SL 0.4 MG TABLET SL PRN (21:00)
[2016-09-17 21:14] LABS: Troponin I Only < 0.015 NG/ML (0.00-0.045)
[2016-09-17 21:16] LABS: Basophils # 0.1 10*3/uL (0.0-0.2); Basophils % 0.4 % (0.0-0.8); Eosinophils % 0.1 % (0.00-10.9); Hematocrit 39.7 VOL% (42.0-52.0); Hemoglobin 13.2 GM/DL (14.0-18.0); Immature Granulocytes % 0.5 %; Lymphocytes % 20.5 % (21.2-54.2); Mean Corpuscular HGB Conc 33.2 GM/DL (32-36); Mean Corpuscular Hemoglobin 30 PG (27-34); Mean Corpuscular Volume 89.8 FL (87-102); Mean Platelet Volume 11.5 FL (9.6-12.0); Monocytes # 1.7 10*3/uL (0.11-0.8); Monocytes % 8.8 % (1.7-12.7); Neutrophils # 13.7 10*3/uL (1.4-7.4); Neutrophils % 69.7 % (38.7-73.9); Platelet Count 182 T/CUMM (130-400); Red Blood Count 4.42 MC/CUMM (3.8-5.5); Red Cell Distribution Width 13.5 % (9.3-17.3); White Blood Count 19.7 T/CUMM (4-12)
[2016-09-17 21:26] LABS: INR 1.2; PT Patient Result 13.3 SECS; Partial Thromboplastin Time 26.7 SECS (0-40)
[2016-09-17] MEDS: INSULIN GLARGINE 100 UNIT/ML SUBCUT SCH (21:38)
[2016-09-17] MEDS: BACLOFEN 10 MG TABLET PO SCH (21:39)
[2016-09-17] MEDS: ATORVASTATIN 40 MG TABLET PO SCH (21:39)
[2016-09-17] MEDS: MAGNESIUM CHLORIDE 64 MG TABLET PO SCH (21:39)
[2016-09-17] MEDS: SODIUM CHLORIDE 0.9% 1,000 ML IV SCH (22:14)
[2016-09-17] MEDS: BUDESONIDE/FORMOTEROL 160-4.5 INHALER 6 GM INH SCH (22:15)
[2016-09-17] MEDS ORDERED: ETOMIDATE 20 MG/10 ML VIAL IV ONE (23:19)
[2016-09-17] MEDS ORDERED: VECURONIUM 10 MG VIAL IV ONE (23:20)
[2016-09-17] MEDS ORDERED: PROPOFOL 1,000 MG/100 ML BOTTLE IV ONE (23:29)
--- NOTE | 2016-09-17 23:34 | Event Note ---
Patient changed his mind as far as been intubated. I was called to the nurse by the nurse to his bedside. She reported that he was not looking well. I talked with the patient and he reported that he was getting too tired to breathe. Therefore I electively intubated him with the assistance of a glide scope. Patient was given etomidate and vecuronium. The intubation went without a complication. Chest x-ray was ordered ABG was ordered consult pulmonary in the morning
[2016-09-18] MEDS: ALBUTEROL/IPRATROPIUM 3 ML NEB RESP TX SCH ×5 (00:18→23:56)
[2016-09-18 00:22] LABS: Allen Test Positive; Pt O2 Delivery Device Ventilator
[2016-09-18 00:23] LABS: ABG Base Excess 8.2 MMOL/L (-2.5-2.5); ABG Oxygen Saturation 98.7 % (95-100); ABG PCO2 66.5 MM HG (35-48); ABG PH 7.351 (7.35-7.45); ABG PO2 174.9 MM HG (80-95)
[2016-09-18] MEDS: PROPOFOL 1,000 MG/100 ML BOTTLE IV SCH ×4 (01:00→19:41)
[2016-09-18 02:25] LABS: Basophils % 0.1 % (0.0-0.8); Hematocrit 35.4 VOL% (42.0-52.0); Immature Granulocytes % 0.4 %; Immature Granulocytes Absolute 0.06 #; Lymphocytes # 0.7 10*3/uL (1.4-4.0); Lymphocytes % 4.7 % (21.2-54.2); Mean Corpuscular HGB Conc 33.9 GM/DL (32-36); Mean Corpuscular Hemoglobin 30 PG (27-34); Mean Corpuscular Volume 89.2 FL (87-102); Mean Platelet Volume 11.7 FL (9.6-12.0); Monocytes # 0.5 10*3/uL (0.11-0.8); Monocytes % 3.2 % (1.7-12.7); Neutrophils # 14.2 10*3/uL (1.4-7.4); Neutrophils % 91.6 % (38.7-73.9); Platelet Count 147 T/CUMM (130-400); Red Blood Count 3.97 MC/CUMM (3.8-5.5); Red Cell Distribution Width 13.5 % (9.3-17.3); White Blood Count 15.5 T/CUMM (4-12)
[2016-09-18 02:46] LABS: Calcium 9.2 MG/DL (8.5-10.1); Magnesium 1.5 MG/DL (1.8-2.4); Osmolality,Calculated 294.4 MOS/KG (273-304); Potassium 3.6 MMOL/L (3.5-5.1)
[2016-09-18 02:49] LABS: Risk Ratio 2.82; VLDL CHOLESTEROL 25.4 MG/DL
[2016-09-18 02:50] LABS: Troponin I Only 0.052 NG/ML (0.00-0.045)
[2016-09-18] MEDS ORDERED: methylPREDNISolone SOD SUC 125 MG/2 ML VIAL IV SCH ×2 (03:00→07:30)
[2016-09-18 03:25] LABS: Band Neutrophils 1 % (0-10); Lymphocytes 6 % (20-55); Platelet Estimate Decreased; Segmented Neutrophils 89 % (50-85); Total Cells Counted 100
[2016-09-18 04:08] LABS: ABG Base Excess 10.3 MMOL/L (-2.5-2.5); ABG Oxygen Saturation 99.3 % (95-100); ABG PCO2 59.3 MM HG (35-48); ABG PH 7.413 (7.35-7.45); ABG PO2 244.8 MM HG (80-95); ABG TCO2 38.8 MMOL/L (23-27); Allen Test Positive; Pt O2 Delivery Device Ventilator
--- NOTE | 2016-09-18 07:12 | XRay Report ---
History: Patient intubated Date: 09/17/2016 11:31 PM Study: Chest x-ray AP portable Comparison exam: 09/17/2016 at 8:24 PM The endotracheal and nasogastric tubes are in generally satisfactory position. A left subclavian multilead pacemaker/defibrillator device is intact and unchanged. There is no pneumothorax. There is stable cardiomegaly. The mediastinal contours are unchanged. The pulmonary vasculature is not engorged. There is some continued mild strandy atelectasis/infiltrate in the right lung base. There is no new or worsening infiltrate. Osseous structures are similar. Impression: The supporting tubes are in satisfactory position. Otherwise unchanged PROCEDURE INTERPRETED AT [facility] DEPARTMENT OF RADIOLOGY Final Report Signed by: Dr. Corie Newell
--- NOTE | 2016-09-18 07:23 | Pulmonology Consult Note ---
Assessment and Plan (1) COPD with exacerbation Status: Acute Assessment and plan: Patient on ventilator. Getting steroids. Will reduce the dose. Needs antibiotics. Continue bronchodilators. His PCO2 is elevated. Will add Diamox. Consider Aminophyllin if no improvement in 24 hours Current Visit: No (2) Atrial fibrillation Status: Acute Assessment and plan: Controlled rate. On anticoagulants. INR is subtherapeutic. Current Visit: Yes Qualifiers: Atrial fibrillation type: chronic Qualified Code(s): I48.2 - Chronic atrial fibrillation (3) Chronic anticoagulation Status: Chronic Assessment and plan: INR subtherapeutic. Defer to cardiology. Current Visit: Yes (4) Ischemic cardiomyopathy Status: Chronic Assessment and plan: Reportedly has ejection fraction 25% 5 years ago. Repeat echo pending. Cardiology following. Current Visit: Yes (5) Acute and chronic respiratory failure Status: Acute Assessment and plan: Has PCO2 of 59 on the ventilator with normal pH. This suggests that he has a chronically elevated PCO2. Will make it somewhat difficult to wean. Adding Diamox. Consider Aminophyllin. Current Visit: Yes (6) Smoker Status: Chronic Assessment and plan: Will need further discussion of smoking cessation once he is off the vent. Current Visit: Yes History of Present Illness Chief complaint: Respiratory failure History of present illness: Mr. Kim is a 71 year old male with a history of an ischemic cardiomyopathy ejection fraction 25% on last echo 5 years ago. Previous coronary bypass surgery. Also history of COPD and is a daily smoker. Previously followed by Dr. Waggoner but apparently lost to follow-up as far as pulmonary is concerned. Was admitted to [facility] and transferred here about 3 days ago. Had respiratory distress last night and was intubated. Presently on ventilator and has elevated PCO2. Unable to obtain any more history from the patient. Most of history from the chart. Home Medications Medication Instructions Recorded Confirmed Type Albuterol Inhaler [Proventil 1 puff INH Q6H PRN #1 inhaler 12/31/14 05/15/16 Rx Inhaler] Aspirin [Ecotrin] 81 mg PO DAILY 12/31/14 05/15/16 History Furosemide Tab [Lasix Tab] 80 mg PO BID DIURETIC 12/31/14 05/15/16 History Gabapentin Cap/Tab [Neurontin 600 mg PO BID 12/31/14 05/15/16 History Cap/Tab] Glimepiride [Amaryl] 4 mg PO BID W/MEALS 12/31/14 05/15/16 History Insulin Glargine [Lantus] 45 unit SUBCUT BEDTIME 12/31/14 05/15/16 History Ipratropium/Albuterol Sulfate 3 ml IH 5X DAILY 12/31/14 05/15/16 History [Iprat-Albut 0.5-3(2.5) mg/3 ml] Isosorbide Mononitrate [Imdur] 60 mg PO DAILY 12/31/14 05/15/16 History Linaclotide [Linzess] 145 mcg PO AC BREAKFAST 12/31/14 05/15/16 History Memantine [Namenda] 7 mg PO DAILY 12/31/14 05/15/16 History Nitroglycerin [Nitroglycerin SL 0.4 mg SL Q5M PRN 12/31/14 05/15/16 History Tab] Pantoprazole Tab [Protonix Tab] 20 mg PO BID 12/31/14 05/15/16 History Potassium Chloride Cap/Tab [K Dur] 20 meq PO TID 12/31/14 05/15/16 History Ramipril [Altace] 10 mg PO DAILY 12/31/14 05/15/16 History Warfarin [Coumadin] 5 mg PO QOTHER DAY 12/31/14 05/15/16 History metOLazone [Zaroxolyn] 2.5 mg PO DAILY 12/31/14 05/15/16 History Albuterol Inhaler [Proventil 2 puff INH Q4H PRN #1 inhaler 07/22/15 05/15/16 Rx Inhaler] Baclofen Tab [Lioresal] 10 mg PO BEDTIME 07/22/15 05/15/16 History Oxycodone HCl/Acetaminophen 1 tablet PO 5X DAILY PRN 07/22/15 05/15/16 History [Percocet 10-325 mg Tablet] Warfarin [Coumadin] 2.5 mg PO QOTHER DAY 07/22/15 05/15/16 History Alum/Mag/Simeth Max Str Liquid 30 ml PO Q4H PRN #0 udcup 07/26/15 05/15/16 Rx [Mylanta Max Strength Liquid] Azithromycin [Zithromax] 500 mg PO DAILY 7 Days 07/26/15 05/15/16 Rx Budesonide/Formoterol 160-4.5 2 puff INH BID #1 inhaler 07/26/15 05/15/16 Rx [Symbicort 160-4.5] Carvedilol [Coreg] 12.5 mg PO BID tablet 07/26/15 05/15/16 Rx Magnesium Chloride [Slow Mag] 64 mg PO BID tablet 07/26/15 05/15/16 Rx predniSONE TAB [PredniSONE] 20 mg PO DAILY #10 tablet 07/26/15 05/15/16 Rx Ciprofloxacin Tab [Cipro Tab] 500 mg PO BID #14 tablet 05/16/16 Rx Allergies Allergy/AdvReac Type Severity Reaction Status Date / Time iodine Allergy Vomiting Verified 09/16/16 21:24 Shellfish AdvReac Abdominal Verified 09/16/16 21:24 Pain ROS unobtainable: due to endotracheal tube Exam (Pulmonay) H&P - Constitutional Vitals: Period Temp Pulse Resp BP Sys/Gutiérrez Pulse Ox Last 24 Hr 97.4 F-97.9 F 49-171 12-37 84-175/49-116 93-100 Exam: Patient is afebrile. Vital signs normal. He is sedated on the ventilator. Pupils react to light. He has arcus senilis. Orotracheal tube in place. Neck is supple. Does have jugular venous distention. Chest reveals expiratory wheezes bilaterally. Heart normal rate and rhythm no murmurs. Abdomen soft no masses. Bowel sounds present. Extremities no clubbing cyanosis or edema. Medical,Surgical,& Family Hx - Medical History Cardio: History of: Cardiac Dysrhythmia (A FIB), Congenital Heart Disease, CHF, CAD, Hypertension, [place], Pacemaker (AICD) Neurology: History of: Cerebrovascular Accident (with residual left lower extremity weakness) No history of: Seizures Endocrine: History of: Diabetes Mellitus (IDDM), Diabetes Mellitus (NIDDM), Dyslipidemia Respiratory: History of: COPD, Pneumonia - Surgical History Cardiac Surgeries: Sugical HX of: Cardiac Catheterization, Cardiac Surgery ( triple bypass), Internal Defibrillator Orthopedic Surgeries: Surgical HX of;: Orthopedic Surgery (right rotator cuff) - Family History Family History: Reports;: Family Hypertension - Social History Smoking Status: Current every day smoker Frequency of Alcohol Use: None Type of Drug Use: None Results - Labs CBC & BMP: 09/18/16 02:13 09/18/16 02:13 Lab Results: I have reviewed the past 24 hour labs - Diagnostic Findings Procedure: Chest x-ray: image reviewed by me (Right basilar infiltrate with small pleural effusion. ET tube in good position)
--- NOTE | 2016-09-18 07:54 | EKG Report ---
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
--- NOTE | 2016-09-18 07:59 | EKG Report ---
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
--- NOTE | 2016-09-18 08:01 | EKG Report ---
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
--- NOTE | 2016-09-18 08:10 | XRay Report ---
History: Intubated patient. Patient on ventilator Date: 09/18/2016 Study: Chest x-ray AP portable Comparison exam: 09/17/2016 The endotracheal and nasogastric tubes are stable in position. A left subclavian multilead transvenous pacemaker/defibrillator device is stable. The cardiomediastinal silhouette is unchanged in this patient status post prior median sternotomy. The pulmonary vasculature is normal engorged. There is still some patchy and strandy atelectasis/infiltrate in the right lung base, grossly similar. There is no interval worsening. There is no pleural effusion. Osseous structures are similar. Impression: No gross change from the previous study PROCEDURE INTERPRETED AT [facility] DEPARTMENT OF RADIOLOGY Final Report Signed by: Dr. Corie Newell
[2016-09-18] MEDS: LEVOFLOXACIN INJ 500 MG in PREMIX 1 EACH IV SCH (08:54)
[2016-09-18] MEDS: FUROSEMIDE 40 MG/4 ML VIAL IV SCH ×2 (08:56→16:42)
[2016-09-18] MEDS: methylPREDNISolone SOD SUC 40 MG/1 ML VIAL IV SCH ×2 (08:57→16:42)
[2016-09-18] MEDS: MAGNESIUM CHLORIDE 64 MG TABLET PO SCH ×2 (08:58→21:42)
[2016-09-18] MEDS: ASPIRIN EC 81 MG TABLET PO SCH (08:58)
[2016-09-18] MEDS: MEMANTINE 5 MG TABLET PO SCH (08:58)
[2016-09-18] MEDS: POTASSIUM CHLORIDE 20 MEQ TABLET PO SCH ×4 (08:58→22:02)
[2016-09-18] MEDS: ISOSORBIDE MONONITRATE 60 MG TABLET PO SCH (08:59)
[2016-09-18] MEDS: CARVEDILOL 12.5 MG TABLET PO SCH ×2 (08:59→21:42)
[2016-09-18] MEDS: GLIMEPIRIDE 4 MG TABLET PO SCH ×2 (08:59→18:41)
[2016-09-18] MEDS ORDERED: metOLazone 2.5 MG TABLET PO SCH (09:00)
--- NOTE | 2016-09-18 09:37 | Cardiology Progress Note ---
<Constanza Kelley - Last Filed: 09/18/16 09:07> Assessment and Plan (1) Acute exacerbation of CHF (congestive heart failure) Status: Acute Assessment and plan: SEE PLAN OF CARE LISTED BELOW Current Visit: Yes Qualifiers: Congestive heart failure type: systolic Qualified Code(s): I50.23 - Acute on chronic systolic (congestive) heart failure (2) Atrial fibrillation Status: Acute Assessment and plan: SEE PLAN OF CARE LISTED BELOW Current Visit: Yes Qualifiers: Atrial fibrillation type: chronic Qualified Code(s): I48.2 - Chronic atrial fibrillation (3) COPD with exacerbation Status: Acute Current Visit: No (4) Chronic anticoagulation Status: Chronic Assessment and plan: SEE PLAN OF CARE LISTED BELOW Current Visit: Yes (5) Hypertension Status: Chronic Assessment and plan: SEE PLAN OF CARE LISTED BELOW Current Visit: Yes (6) Dyslipidemia Status: Chronic Assessment and plan: SEE PLAN OF CARE LISTED BELOW Current Visit: Yes (7) Coronary artery disease involving coronary bypass graft Status: Chronic Assessment and plan: SEE PLAN OF CARE LISTED BELOW Current Visit: Yes (8) Diabetes Status: Chronic Assessment and plan: SEE PLAN OF CARE LISTED BELOW Current Visit: Yes Qualifiers: Diabetes mellitus type: type 2 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 Lagunas SUMMARY - Mr. Kim is a 71 year old male with known history of coronary artery disease, routinely followed by Dr. Lagunas. Patient was transferred to [facility] with complaints of chest pain and shortness of breath he has cardiac risk factors significant for known history of coronary artery disease, diabetes, hypertension, advanced age, sedentary lifestyle and current everyday smoker. patient has a past medical history of dementia, atrial fibrillation (chronically anticoagulated with Coumadin), ischemic cardiomyopathy (most recent ejection fraction 25% in 2011) and COPD. Patient underwent coronary artery bypass grafting in 2002 with ALCANTAR to LAD, SVG to circumflex artery and SVG to diagonal. Patient's most recent heart catheterization was performed in [address] Lagunas. At that time, 1 of the 3 grafts were patent with a ALCANTAR graft to LAD widely patent without evidence of significant stenosis. Diffuse severe left ventricular hypokinesis, overall ejection fraction in the 25% range. SVG to marginal completely occluded and SVG to diagonal completely occluded. Widely patent stent to the circumflex artery. Patient has not followed up in the cardiology clinic in several years. Patient [facility] with complaints of chest pain and shortness of breath. Overnight, he went into respiratory distress and was transferred down to the ICU. He was then intubated and placed on the ventilator. August UPDATE - Patient was seen and examined in the ICU. He was transferred down to the ICU last night due to respiratory distress. According to Dr. Steward's note, he changed his mind from being a DNI to being a full code. He was intubated and placed on the ventilator. This is suspected to be all secondary to his COPD exacerbation. Dr. Cantu is following. Troponin was only mildly elevated this morning. We will continue to use cycle these to ensure that these are in fact trending down. This most likely secondary to patient's hypoxia. At this point, we will continue current plan of care. Vital signs are stable. She remains in atrial flutter/flutter with a controlled ventricular response. I will discuss further with Dr. Temple and await his further recommendations. ASSESSMENT/PLAN: 1. COPD WITH EXACERBATION - Now status post intubation. Pulmonary is following. Continue IV steroids, antibiotics and bronchodilators. 1. CHF, SYSTOLIC DYSFUCTION - Patient's most recent ejection fraction was noted to be 25% per her last heart catheterization 2011. Echocardiogram this admission revealed improved EF, estimated approximately 45%. BNP mildly elevated at 451. Continue IV diuresis with Lasix as patient is diuresing well. Daily weights and strict I's and O's. 2. ATRIAL FIBRILLATION WITH RVR - This appears to be chronic. Now rate controlled with current medication regimen. Historically, he has been anticoagulated with Coumadin. INR today is subtherapeutic at 1.2. Patient's Coumadin was reinitiated last night. We will continue current dose at this time. Continue to monitor daily INR and adjust as needed throughout his hospitalization. 3. CAD, STATUS POST CABG - Patient underwent CABG in 2002 with SVG to diagonal , SVG to circumflex and ALCANTAR to LAD. Continue current plan of care. 4. ISCHEMIC CARDIOMYOPATHY - Ejection fraction was noted to be 25% per left heart catheterization 2011. Echocardiogram this admission reveals improved ejection fraction of 45%. Results are pending. At this point, we will continue patient's current medication regimen with beta-kellie and VILMA inhibitor. Continue IV diuresis. Will consider adding Aldactone if needed. 6. DIABETES - Management per attending. 7. DYSLIPIDEMIA - Lipid panel was reviewed. Continue lipid-lowering agent. 8. CHRONIC ANTICOAGULATION - At this point, patient's home medications have not been reviewed and confirmed. Coumadin was reinitiated last night. INR today is 1.2. Daily INRs. 9. CURRENT EVERYDAY SMOKER - Smoking cessation will need to be discussed once extubated from the ventilator. 10. RESPIRATORY FAILURE - Pulmonary is following. Will follow their recommendations. 11. HYPERTENSION - This is suboptimally controlled. Will adjust patient's medication regimen. Will discuss with Dr. Temple and await his additional recommendations. Exam (Progress Note) - Constitutional Vitals: Period Temp Pulse Resp BP Sys/Gutiérrez Pulse Ox Last 24 Hr 97.5 F-97.9 F 49-171 12-37 84-175/49-116 93-100 Exam: General: Appears comfortable on the ventilator. Sedated. HEENT: PERRL, normocephalic, atraumatic. Mucous membranes moist. No jaundice noted. Conjunctiva moist and clear, sclerae anicteric Neck: No JVD/HJR, no thyromegaly or lymphadenopathy noted. No carotid bruit appreciated Cardiac: Irregular rhythm, controlled rate. No murmur rub or gallop. Lungs: Wheezes bilaterally. On the ventilator. Abdomen: Soft, bowel sounds normoactive. Extremities: No clubbing, cyanosis noted. Trace edema to bilateral lower extremities. Upper extremity pulses 2+. Lower extremity pulses 2+. Capillary refill less than 3 seconds. Skin: No unusual lesions or rashes. No skin breakdown appreciated. Neuro: Unable to assess as patient is sedated on the ventilator. Result/EKG - Labs CBC & BMP: 09/18/16 02:13 09/18/16 02:13 Lab Results: I have reviewed the past 24 hour labs Labs: Laboratory Results - last 24 hr 09/17/16 09/17/16 09/17/16 08:43 10:31 11:38 WBC RBC Hgb Hct MCV MCH MCHC RDW Plt Count MPV Neut % (Auto) Lymph % (Auto) Brewster % (Auto) Eos % (Auto) Baso % (Auto) Neut # (Auto) Lymph # (Auto) Brewster # (Auto) Eos # (Auto) Baso # (Auto) Total Counted Immature Gran % Nucleated RBC % Immature Gran # Segmented Neutrophils Band Neutrophils Lymphocytes Monocytes Nucleated RBCs # Platelet Estimate INR PT Patient/Control Mix Circ Anticoag PTT ABG pH ABG pCO2 ABG pO2 ABG HCO3 ABG Total CO2 ABG O2 Saturation ABG Base Excess FiO2 Sodium Potassium Chloride Carbon Dioxide Anion Gap BUN Creatinine GFR Calculation BUN/Creatinine Ratio Glucose POC Glucose 340 H Calculated Osmolality Calcium Magnesium Total Bilirubin AST ALT Alkaline Phosphatase Total Creatine Kinase 100 CK-MB (CK-2) 1.4 Troponin I < 0.015 B-Natriuretic Peptide 491 H Total Protein Albumin Globulin Albumin/Globulin Ratio Triglycerides Cholesterol LDL Cholesterol VLDL Cholesterol HDL Cholesterol Heart Disease Risk Ratio 09/17/16 09/17/16 09/17/16 15:40 18:42 19:38 WBC RBC Hgb Hct MCV MCH MCHC RDW Plt Count MPV Neut % (Auto) Lymph % (Auto) Brewster % (Auto) Eos % (Auto) Baso % (Auto) Neut # (Auto) Lymph # (Auto) Brewster # (Auto) Eos # (Auto) Baso # (Auto) Total Counted Immature Gran % Nucleated RBC % Immature Gran # Segmented Neutrophils Band Neutrophils Lymphocytes Monocytes Nucleated RBCs # Platelet Estimate INR PT Patient/Control Mix Circ Anticoag PTT ABG pH ABG pCO2 ABG pO2 ABG HCO3 ABG Total CO2 ABG O2 Saturation ABG Base Excess FiO2 Sodium Potassium Chloride Carbon Dioxide Anion Gap BUN Creatinine GFR Calculation BUN/Creatinine Ratio Glucose POC Glucose 148 H 267 H Calculated Osmolality Calcium Magnesium Total Bilirubin AST ALT Alkaline Phosphatase Total Creatine Kinase 116 CK-MB (CK-2) 1.8 Troponin I < 0.015 B-Natriuretic Peptide Total Protein Albumin Globulin Albumin/Globulin Ratio Triglycerides Cholesterol LDL Cholesterol VLDL Cholesterol HDL Cholesterol Heart Disease Risk Ratio 09/17/16 09/17/16 09/17/16 20:29 20:29 21:08 WBC 19.7 H D RBC 4.42 Hgb 13.2 L Hct 39.7 L MCV 89.8 MCH 30 MCHC 33.2 RDW 13.5 Plt Count 182 D MPV 11.5 Neut % (Auto) 69.7 Lymph % (Auto) 20.5 L Brewster % (Auto) 8.8 Eos % (Auto) 0.1 Baso % (Auto) 0.4 Neut # (Auto) 13.7 H Lymph # (Auto) 4.0 Brewster # (Auto) 1.7 H Eos # (Auto) 0.0 Baso # (Auto) 0.1 Total Counted Immature Gran % 0.5 Nucleated RBC % 0.0 Immature Gran # 0.10 Segmented Neutrophils Band Neutrophils Lymphocytes Monocytes Nucleated RBCs # 0.00 Platelet Estimate INR PT Patient/Control Mix Circ Anticoag PTT ABG pH ABG pCO2 ABG pO2 ABG HCO3 ABG Total CO2 ABG O2 Saturation ABG Base Excess FiO2 Sodium 138 Potassium 4.6 Chloride 97 L Carbon Dioxide 29 Anion Gap 16.6 H BUN 21 H Creatinine 1.40 H GFR Calculation 75 BUN/Creatinine Ratio 15.00 Glucose 286 H POC Glucose Calculated Osmolality 287.7 Calcium 9.3 Magnesium Total Bilirubin 0.60 AST 31 ALT 28 Alkaline Phosphatase 104 Total Creatine Kinase 162 D CK-MB (CK-2) 1.7 Troponin I < 0.015 B-Natriuretic Peptide Total Protein 7.9 Albumin 3.7 Globulin 4.2 H Albumin/Globulin Ratio 0.8 L Triglycerides Cholesterol LDL Cholesterol VLDL Cholesterol HDL Cholesterol Heart Disease Risk Ratio 09/17/16 09/18/16 09/18/16 21:08 00:10 02:13 WBC 15.5 H RBC 3.97 Hgb 12.0 L Hct 35.4 L MCV 89.2 MCH 30 MCHC 33.9 RDW 13.5 Plt Count 147 MPV 11.7 Neut % (Auto) 91.6 H Lymph % (Auto) 4.7 L Brewster % (Auto) 3.2 Eos % (Auto) 0.0 Baso % (Auto) 0.1 Neut # (Auto) 14.2 H Lymph # (Auto) 0.7 L Brewster # (Auto) 0.5 Eos # (Auto) 0.0 Baso # (Auto) 0.0 Total Counted 100 Immature Gran % 0.4 Nucleated RBC % 0.0 Immature Gran # 0.06 Segmented Neutrophils 89 H Band Neutrophils 1 Lymphocytes 6 L Monocytes 4 Nucleated RBCs # 0.00 Platelet Estimate Decreased INR 1.2 PT Patient/Control Mix 13.3 Circ Anticoag PTT 26.7 ABG pH 7.351 ABG pCO2 66.5 H ABG pO2 174.9 H ABG HCO3 36.0 H ABG Total CO2 38.0 H ABG O2 Saturation 98.7 ABG Base Excess 8.2 H FiO2 100.00 Sodium Potassium Chloride Carbon Dioxide Anion Gap BUN Creatinine GFR Calculation BUN/Creatinine Ratio Glucose POC Glucose Calculated Osmolality Calcium Magnesium Total Bilirubin AST ALT Alkaline Phosphatase Total Creatine Kinase CK-MB (CK-2) Troponin I B-Natriuretic Peptide Total Protein Albumin Globulin Albumin/Globulin Ratio Triglycerides Cholesterol LDL Cholesterol VLDL Cholesterol HDL Cholesterol Heart Disease Risk Ratio 09/18/16 09/18/16 09/18/16 02:13 02:13 02:13 WBC RBC Hgb Hct MCV MCH MCHC RDW Plt Count MPV Neut % (Auto) Lymph % (Auto) Brewster % (Auto) Eos % (Auto) Baso % (Auto) Neut # (Auto) Lymph # (Auto) Brewster # (Auto) Eos # (Auto) Baso # (Auto) Total Counted Immature Gran % Nucleated RBC % Immature Gran # Segmented Neutrophils Band Neutrophils Lymphocytes Monocytes Nucleated RBCs # Platelet Estimate INR PT Patient/Control Mix Circ Anticoag PTT ABG pH ABG pCO2 ABG pO2 ABG HCO3 ABG Total CO2 ABG O2 Saturation ABG Base Excess FiO2 Sodium 140 Potassium 3.6 Chloride 96 L Carbon Dioxide 36 H Anion Gap 11.6 BUN 27 H Creatinine 1.80 H GFR Calculation 56 BUN/Creatinine Ratio 15.00 Glucose 305 H POC Glucose Calculated Osmolality 294.4 Calcium 9.2 Magnesium 1.5 L Total Bilirubin AST ALT Alkaline Phosphatase Total Creatine Kinase 110 D CK-MB (CK-2) 1.4 Troponin I 0.052 H D B-Natriuretic Peptide Total Protein Albumin Globulin Albumin/Globulin Ratio Triglycerides 127 Cholesterol 158 LDL Cholesterol 79.0 VLDL Cholesterol 25.4 HDL Cholesterol 56 Heart Disease Risk Ratio 2.82 09/18/16 04:00 WBC RBC Hgb Hct MCV MCH MCHC RDW Plt Count MPV Neut % (Auto) Lymph % (Auto) Brewster % (Auto) Eos % (Auto) Baso % (Auto) Neut # (Auto) Lymph # (Auto) Brewster # (Auto) Eos # (Auto) Baso # (Auto) Total Counted Immature Gran % Nucleated RBC % Immature Gran # Segmented Neutrophils Band Neutrophils Lymphocytes Monocytes Nucleated RBCs # Platelet Estimate INR PT Patient/Control Mix Circ Anticoag PTT ABG pH 7.413 ABG pCO2 59.3 H ABG pO2 244.8 H ABG HCO3 37.0 H ABG Total CO2 38.8 H ABG O2 Saturation 99.3 ABG Base Excess 10.3 H FiO2 60.00 Sodium Potassium Chloride Carbon Dioxide Anion Gap BUN Creatinine GFR Calculation BUN/Creatinine Ratio Glucose POC Glucose Calculated Osmolality Calcium Magnesium Total Bilirubin AST ALT Alkaline Phosphatase Total Creatine Kinase CK-MB (CK-2) Troponin I B-Natriuretic Peptide Total Protein Albumin Globulin Albumin/Globulin Ratio Triglycerides Cholesterol LDL Cholesterol VLDL Cholesterol HDL Cholesterol Heart Disease Risk Ratio <Tamera Temple - Last Filed: 09/18/16 11:21> Assessment and Plan - Time spent with patient Time spent with patient: Less than 30 minutes (1) COPD with exacerbation Status: Chronic Assessment and plan: Acute on chronic exacerbation Current Visit: No (2) Atrial fibrillation Status: Acute Assessment and plan: Several beats of what was probably a variant but may represent ventricular premature complexes. Continue AV amandeep blockade agents and anticoagulation Current Visit: Yes Qualifiers: Atrial fibrillation type: chronic Qualified Code(s): I48.2 - Chronic atrial fibrillation (3) Acute and chronic respiratory failure Status: Acute Current Visit: Yes Qualifiers: Respiratory failure complication: hypoxia Qualified Code(s): J96.21 - Acute and chronic respiratory failure with hypoxia (4) Ischemic cardiomyopathy Status: Chronic Assessment and plan: EF is improved by echo. Current Visit: Yes Cardiology - PN: Subj Interval history: The events of the evening were noted. I saw the patient with Ms. Kelley. The patient has been intubated his heart rate is coming down. His ejection fraction has improved. His blood pressure has been marginal well sedated and I recommend that we decrease his VILMA inhibitor. He will likely have more difficulty with heart rate is he is less sedated I will go ahead and initiate and add diltiazem to his right controlling medicines. His ejection fraction is better and the impact of Cardizem will likely not be that significant in this current setting. Controlling his right is probably more poor than its negative inotropic effects. We will continue to follow. His chest x-ray shows no evidence of heart failure to me today. Exam (Progress Note) - Constitutional Vitals: Period Temp Pulse Resp BP Sys/Gutiérrez Pulse Ox Last 24 Hr 97.5 F-98 F 49-171 12-37 84-175/49-116 93-100 Exam: No gallop is heard tones are somewhat quiet lung parenchyma sound dramatically better than yesterday. As above I agree Result/EKG - Labs CBC & BMP: 09/18/16 02:13 09/18/16 02:13 Labs: Laboratory Results - last 24 hr 09/17/16 09/17/16 09/17/16 10:31 11:38 15:40 WBC RBC Hgb Hct MCV MCH MCHC RDW Plt Count MPV Neut % (Auto) Lymph % (Auto) Brewster % (Auto) Eos % (Auto) Baso % (Auto) Neut # (Auto) Lymph # (Auto) Brewster # (Auto) Eos # (Auto) Baso # (Auto) Total Counted Immature Gran % Nucleated RBC % Immature Gran # Segmented Neutrophils Band Neutrophils Lymphocytes Monocytes Nucleated RBCs # Platelet Estimate INR PT Patient/Control Mix Circ Anticoag PTT ABG pH ABG pCO2 ABG pO2 ABG HCO3 ABG Total CO2 ABG O2 Saturation ABG Base Excess FiO2 Sodium Potassium Chloride Carbon Dioxide Anion Gap BUN Creatinine GFR Calculation BUN/Creatinine Ratio Glucose POC Glucose 340 H 148 H Calculated Osmolality Calcium Magnesium Total Bilirubin AST ALT Alkaline Phosphatase Total Creatine Kinase 100 CK-MB (CK-2) 1.4 Troponin I < 0.015 Total Protein Albumin Globulin Albumin/Globulin Ratio Triglycerides Cholesterol LDL Cholesterol VLDL Cholesterol HDL Cholesterol Heart Disease Risk Ratio 09/17/16 09/17/16 09/17/16 18:42 19:38 20:29 WBC RBC Hgb Hct MCV MCH MCHC RDW Plt Count MPV Neut % (Auto) Lymph % (Auto) Brewster % (Auto) Eos % (Auto) Baso % (Auto) Neut # (Auto) Lymph # (Auto) Brewster # (Auto) Eos # (Auto) Baso # (Auto) Total Counted Immature Gran % Nucleated RBC % Immature Gran # Segmented Neutrophils Band Neutrophils Lymphocytes Monocytes Nucleated RBCs # Platelet Estimate INR PT Patient/Control Mix Circ Anticoag PTT ABG pH ABG pCO2 ABG pO2 ABG HCO3 ABG Total CO2 ABG O2 Saturation ABG Base Excess FiO2 Sodium 138 Potassium 4.6 Chloride 97 L Carbon Dioxide 29 Anion Gap 16.6 H BUN 21 H Creatinine 1.40 H GFR Calculation 75 BUN/Creatinine Ratio 15.00 Glucose 286 H POC Glucose 267 H Calculated Osmolality 287.7 Calcium 9.3 Magnesium Total Bilirubin 0.60 AST 31 ALT 28 Alkaline Phosphatase 104 Total Creatine Kinase 116 CK-MB (CK-2) 1.8 Troponin I < 0.015 Total Protein 7.9 Albumin 3.7 Globulin 4.2 H Albumin/Globulin Ratio 0.8 L Triglycerides Cholesterol LDL Cholesterol VLDL Cholesterol HDL Cholesterol Heart Disease Risk Ratio 09/17/16 09/17/16 09/17/16 20:29 21:08 21:08 WBC 19.7 H D RBC 4.42 Hgb 13.2 L Hct 39.7 L MCV 89.8 MCH 30 MCHC 33.2 RDW 13.5 Plt Count 182 D MPV 11.5 Neut % (Auto) 69.7 Lymph % (Auto) 20.5 L Brewster % (Auto) 8.8 Eos % (Auto) 0.1 Baso % (Auto) 0.4 Neut # (Auto) 13.7 H Lymph # (Auto) 4.0 Brewster # (Auto) 1.7 H Eos # (Auto) 0.0 Baso # (Auto) 0.1 Total Counted Immature Gran % 0.5 Nucleated RBC % 0.0 Immature Gran # 0.10 Segmented Neutrophils Band Neutrophils Lymphocytes Monocytes Nucleated RBCs # 0.00 Platelet Estimate INR 1.2 PT Patient/Control Mix 13.3 Circ Anticoag PTT 26.7 ABG pH ABG pCO2 ABG pO2 ABG HCO3 ABG Total CO2 ABG O2 Saturation ABG Base Excess FiO2 Sodium Potassium Chloride Carbon Dioxide Anion Gap BUN Creatinine GFR Calculation BUN/Creatinine Ratio Glucose POC Glucose Calculated Osmolality Calcium Magnesium Total Bilirubin AST ALT Alkaline Phosphatase Total Creatine Kinase 162 D CK-MB (CK-2) 1.7 Troponin I < 0.015 Total Protein Albumin Globulin Albumin/Globulin Ratio Triglycerides Cholesterol LDL Cholesterol VLDL Cholesterol HDL Cholesterol Heart Disease Risk Ratio 09/18/16 09/18/16 09/18/16 00:10 02:13 02:13 WBC 15.5 H RBC 3.97 Hgb 12.0 L Hct 35.4 L MCV 89.2 MCH 30 MCHC 33.9 RDW 13.5 Plt Count 147 MPV 11.7 Neut % (Auto) 91.6 H Lymph % (Auto) 4.7 L Brewster % (Auto) 3.2 Eos % (Auto) 0.0 Baso % (Auto) 0.1 Neut # (Auto) 14.2 H Lymph # (Auto) 0.7 L Brewster # (Auto) 0.5 Eos # (Auto) 0.0 Baso # (Auto) 0.0 Total Counted 100 Immature Gran % 0.4 Nucleated RBC % 0.0 Immature Gran # 0.06 Segmented Neutrophils 89 H Band Neutrophils 1 Lymphocytes 6 L Monocytes 4 Nucleated RBCs # 0.00 Platelet Estimate Decreased INR PT Patient/Control Mix Circ Anticoag PTT ABG pH 7.351 ABG pCO2 66.5 H ABG pO2 174.9 H ABG HCO3 36.0 H ABG Total CO2 38.0 H ABG O2 Saturation 98.7 ABG Base Excess 8.2 H FiO2 100.00 Sodium 140 Potassium 3.6 Chloride 96 L Carbon Dioxide 36 H Anion Gap 11.6 BUN 27 H Creatinine 1.80 H GFR Calculation 56 BUN/Creatinine Ratio 15.00 Glucose 305 H POC Glucose Calculated Osmolality 294.4 Calcium 9.2 Magnesium 1.5 L Total Bilirubin AST ALT Alkaline Phosphatase Total Creatine Kinase CK-MB (CK-2) Troponin I Total Protein Albumin Globulin Albumin/Globulin Ratio Triglycerides Cholesterol LDL Cholesterol VLDL Cholesterol HDL Cholesterol Heart Disease Risk Ratio 09/18/16 09/18/16 09/18/16 02:13 02:13 04:00 WBC RBC Hgb Hct MCV MCH MCHC RDW Plt Count MPV Neut % (Auto) Lymph % (Auto) Brewster % (Auto) Eos % (Auto) Baso % (Auto) Neut # (Auto) Lymph # (Auto) Brewster # (Auto) Eos # (Auto) Baso # (Auto) Total Counted Immature Gran % Nucleated RBC % Immature Gran # Segmented Neutrophils Band Neutrophils Lymphocytes Monocytes Nucleated RBCs # Platelet Estimate INR PT Patient/Control Mix Circ Anticoag PTT ABG pH 7.413 ABG pCO2 59.3 H ABG pO2 244.8 H ABG HCO3 37.0 H ABG Total CO2 38.8 H ABG O2 Saturation 99.3 ABG Base Excess 10.3 H FiO2 60.00 Sodium Potassium Chloride Carbon Dioxide Anion Gap BUN Creatinine GFR Calculation BUN/Creatinine Ratio Glucose POC Glucose Calculated Osmolality Calcium Magnesium Total Bilirubin AST ALT Alkaline Phosphatase Total Creatine Kinase 110 D CK-MB (CK-2) 1.4 Troponin I 0.052 H D Total Protein Albumin Globulin Albumin/Globulin Ratio Triglycerides 127 Cholesterol 158 LDL Cholesterol 79.0 VLDL Cholesterol 25.4 HDL Cholesterol 56 Heart Disease Risk Ratio 2.82 09/18/16 09:54 WBC RBC Hgb Hct MCV MCH MCHC RDW Plt Count MPV Neut % (Auto) Lymph % (Auto) Brewster % (Auto) Eos % (Auto) Baso % (Auto) Neut # (Auto) Lymph # (Auto) Brewster # (Auto) Eos # (Auto) Baso # (Auto) Total Counted Immature Gran % Nucleated RBC % Immature Gran # Segmented Neutrophils Band Neutrophils Lymphocytes Monocytes Nucleated RBCs # Platelet Estimate INR PT Patient/Control Mix Circ Anticoag PTT ABG pH ABG pCO2 ABG pO2 ABG HCO3 ABG Total CO2 ABG O2 Saturation ABG Base Excess FiO2 Sodium Potassium Chloride Carbon Dioxide Anion Gap BUN Creatinine GFR Calculation BUN/Creatinine Ratio Glucose POC Glucose Calculated Osmolality Calcium Magnesium Total Bilirubin AST ALT Alkaline Phosphatase Total Creatine Kinase 86 D CK-MB (CK-2) 1.5 Troponin I 0.033 Total Protein Albumin Globulin Albumin/Globulin Ratio Triglycerides Cholesterol LDL Cholesterol VLDL Cholesterol HDL Cholesterol Heart Disease Risk Ratio
[2016-09-18 10:32] LABS: Troponin I Only 0.033 NG/ML (0.00-0.045)
[2016-09-18] MEDS: INSULIN REGULAR 100 UNIT/ML SUBCUT SCH ×3 (11:17→18:45)
[2016-09-18] MEDS: BUDESONIDE/FORMOTEROL 160-4.5 INHALER 6 GM INH SCH ×2 (11:17→21:43)
[2016-09-18] MEDS: LINACLOTIDE 145 MCG CAPSULE PO SCH (11:59)
[2016-09-18] MEDS: RAMIPRIL 5 MG CAPSULE PO SCH (12:00)
--- NOTE | 2016-09-18 13:25 | Physician Query Form ---
CLICK EDIT DOCUMENT TO SELECT QUERY ANSWER --> OK --> SIGN Ree Solis RN Clinical Financial Compliance Examiner W) [phone] (f) [phone] [email or web address] PROVIDERS: Make your selection(s) from the choices in EACH section by typing an "x" and enter comments in the comment section. Please use your independent medical judgment in providing your response. This request does not imply that any particular answer is desired or expected. CLINICAL INDICATORS: (Providers should not edit this section) Pt. admitted with CHF and diuresed with IV Lasix. Creatinine on admission of 1.20 and increased to 1.80 with a GFR of 56. Clarify which of the following most accurately represents the patient's renal status: ( ) Acute kidney injury (non-traumatic) ( x) Acute renal failure ( ) Acute renal failure with underlying Chronic Kidney Disease (CKD) - please provide stage below ( ) CKD - please provide stage below ( ) Other, please specify: ( ) Clinically unable to determine Chronic Kidney Disease Stages Source: National Kid[employer] ( ) Stage I (eGFR > or = 90) ( ) Stage II (eGFR 60 - 89) ( ) Stage III (eGFR 30 - 59) ( ) Stage IV (eGFR 15 - 29) ( ) Stage V (eGFR < 15 or dialysis) COMMENTS: PLEASE ALSO DOCUMENT RESPONSE IN PROGRESS NOTES AND/OR DISCHARGE SUMMARY Use of terms such as suspected, likely, or probable (associated with a specific diagnosis that is being evaluated, monitored, or treated as if it exists) are acceptable and can be restated in the discharge summary if not ruled out. MTDD
[2016-09-18] MEDS: DILTIAZEM 30 MG TABLET PO SCH ×3 (13:35→21:42)
[2016-09-18 14:07] LABS: Apearance,Urine CLEAR (Clear); Bilirubin,Urine Negative (Negative); Blood, Urine Moderate mg/dL (Negative); Glucose,Urine (UA) Negative (Negative); Hyaline Casts,Urine 18 /LPF (0-3); Ketones,Urine Negative (Negative); Mucus,Urine Occasional /LPF (Occasional); Nitrite,Urine Negative (Negative); Protein,Urine Negative; RBC,Urine 43 /HPF (0-4); Urine Color Straw (Yellow); Urine Specific Gravity 1.008 (1.001-1.035); Urine Urobilinogen < 2.0 EU/DL (0.2-1.0); WBC,Urine 2 /HPF (0-6)
--- NOTE | 2016-09-18 16:23 | Hospitalist Progress Note ---
Assessment and Plan (1) COPD (chronic obstructive pulmonary disease) Status: Acute Assessment and plan: Patient with acute COPD exacerbation requiring mechanical ventilation. Steroids and antibiotics started. Pulmonary following. Patient experienced acute respiratory failure last night requiring intubation. Please see event note by my colleague Dr. Steward. Current Visit: Yes Qualifiers: COPD type: COPD with acute exacerbation Qualified Code(s): J44.1 - Chronic obstructive pulmonary disease with (acute) exacerbation (2) Ischemic cardiomyopathy Status: Chronic Assessment and plan: His cardiomyopathy has improved since his last cardiac cath in 2016 as evidenced by his new echocardiogram and ejection fraction of 45%. Cardiology is following. Echocardiogram results are as below. The overall ejection fraction appears to be approximately 45%. Diastolic parameters are equivocal. Tricuspid valve is normal there is mild tricuspid regurgitation peak velocity of 3.08 m/s corresponds with right ventricular cell pressure of 38 mmHg plus the right atrial pressure. Pulmonic valve is normal there is trivial pulmonic insufficiency. There is mild central jet of mitral regurgitation Current Visit: Yes (3) History of atrial fibrillation Status: Acute Assessment and plan: Rate controlled. Increase Cardizem. Current Visit: No (4) Acute exacerbation of CHF (congestive heart failure) Status: Acute Assessment and plan: Continue IV Lasix. Home medications reviewed and reconciled. Cardiology consult reviewed. Current Visit: Yes Qualifiers: Congestive heart failure type: systolic Qualified Code(s): I50.23 - Acute on chronic systolic (congestive) heart failure (5) Chronic anticoagulation Status: Chronic Assessment and plan: INR subtherapeutic. Continue Coumadin. Current Visit: Yes (6) Hypertension Status: Chronic Current Visit: Yes (7) Dyslipidemia Status: Chronic Current Visit: Yes (8) Diabetes Status: Chronic Current Visit: Yes Qualifiers: Diabetes mellitus type: type 2 Diabetes mellitus care home insulin use: with long term care phlebotomist use (9) Smoker Status: Chronic Current Visit: Yes Hospitalist: Subjective Interval history: Patient seen and examined. Overnight events noted-patient with acute respiratory failure requiring transfer to ICU and eventual intubation. Patient is intubated and sedated and in no acute distress at this time. Cardiology notes reviewed. Exam - Constitutional Vitals: Period Temp Pulse Resp BP Sys/Gutiérrez Pulse Ox Last 24 Hr 97 F-98 F 49-171 12-37 78-175/49-116 93-100 Exam: Constitutional System: Mild distress. No tremulousness. Head: Normocephalic, atraumatic. Ears, Nose and Throat System: No pain or tenderness. No epistaxis or discharge. ET tube in place. Eyes System: Pupils equal, round, and reactive. Extraocular muscles intact. Neck: Supple, without adenopathy, No jugular venous distention. Respiratory System: Chest rales to auscultation at the bases. Cardiovascular System: Heart with regular rate and rhythm. No murmur. GI System: Abdomen soft, nontender. Normo active bowel sounds present. Musculoskeletal System: limbs with bilateral pedal edema. Full distal pulses. Neurological System: No discernable sensory deficit. No aphasia Psychiatric System: Conversation is rational Results - Labs CBC & BMP: 09/18/16 02:13 09/18/16 02:13 Lab Results: I have reviewed the past 24 hour labs - Diagnostic Findings Procedure: Chest x-ray: image reviewed by me, report reviewed by me
[2016-09-18 18:42] LABS: Troponin I Only 0.042 NG/ML (0.00-0.045)
[2016-09-18] MEDS: WARFARIN 2.5 MG TABLET PO SCH (18:44)
[2016-09-18] MEDS: ATORVASTATIN 40 MG TABLET PO SCH (21:42)
[2016-09-18] MEDS: INSULIN GLARGINE 100 UNIT/ML SUBCUT SCH (21:42)
[2016-09-18] MEDS: BACLOFEN 10 MG TABLET PO SCH (21:42)
[2016-09-18] MEDS: POTASSIUM CHLORIDE 20 MEQ/15 ML UDCUP PO SCH (22:01)
[2016-09-19] MEDS: methylPREDNISolone SOD SUC 40 MG/1 ML VIAL IV SCH ×4 (00:12→23:54)
[2016-09-19] MEDS: INSULIN REGULAR 100 UNIT/ML SUBCUT SCH ×4 (00:12→18:27)
[2016-09-19] MEDS: DILTIAZEM INJ 100 MG in SODIUM CHLORIDE 0.9% 100 ML IV SCH ×2 (00:27→20:34)
[2016-09-19 02:38] LABS: ABG Base Excess 11.5 MMOL/L (-2.5-2.5); ABG HCO3 35.3 MMOL/L (20-26); ABG Oxygen Saturation 98.1 % (95-100); ABG PCO2 49.5 MM HG (35-48); ABG PH 7.481 (7.35-7.45); ABG TCO2 32.3 MMOL/L (23-27); Allen Test Positive; Pt O2 Delivery Device Ventilator
[2016-09-19] MEDS: PROPOFOL 1,000 MG/100 ML BOTTLE IV SCH (03:54)
[2016-09-19 04:18] LABS: Basophils % 0.1 % (0.0-0.8); Hematocrit 38.4 VOL% (42.0-52.0); Hemoglobin 12.8 GM/DL (14.0-18.0); Immature Granulocytes % 0.6 %; Immature Granulocytes Absolute 0.06 #; Lymphocytes # 1.2 10*3/uL (1.4-4.0); Lymphocytes % 10.6 % (21.2-54.2); Mean Corpuscular HGB Conc 33.3 GM/DL (32-36); Mean Corpuscular Hemoglobin 30 PG (27-34); Mean Corpuscular Volume 89.3 FL (87-102); Mean Platelet Volume 11.6 FL (9.6-12.0); Monocytes # 0.6 10*3/uL (0.11-0.8); Monocytes % 5.6 % (1.7-12.7); Neutrophils % 83.1 % (38.7-73.9); Platelet Count 137 T/CUMM (130-400); Red Cell Distribution Width 13.9 % (9.3-17.3); White Blood Count 10.8 T/CUMM (4-12)
[2016-09-19 04:57] LABS: Calcium 9.2 MG/DL (8.5-10.1); Magnesium 1.9 MG/DL (1.8-2.4); Osmolality,Calculated 297.1 MOS/KG (273-304); Potassium 2.7 MMOL/L (3.5-5.1)
[2016-09-19] MEDS: SODIUM CHLORIDE 0.9% 1,000 ML IV SCH (05:10)
[2016-09-19] MEDS: POTASSIUM CHLORIDE RIDER 10 MEQ in PREMIX 1 EACH IV PRN ×9 (05:28→19:33)
--- NOTE | 2016-09-19 06:51 | Pulmonology Progress Note ---
Pulmonary - PN: Subj Interval history: This 71-year-old black male is on the ventilator for acute on chronic respiratory failure. He has COPD with an exacerbation. May have some bronchopneumonia in the right base. Had an element of congestive heart failure. His ejection fraction is better than it was a couple years back. This is primarily exacerbation of his COPD. Today his lungs sound better. We will start doing CPAP's and wean as tolerated. Exam (Progress Note) - Constitutional Vitals: Period Temp Pulse Resp BP Sys/Gutiérrez Pulse Ox Last 24 Hr 97 F-98 F 57-101 14-29 78-126/53-85 95-100 Exam: Patient sedated. Vital signs normal. Pupils react to light. Orotracheal tube in place. Neck is supple. Chest reveals prolonged expiratory phase only minimal expiratory wheezes. Heart normal rate rhythm no murmurs. Abdomen soft no masses. Bowel sounds present. Extremities no clubbing cyanosis edema. Results - Labs CBC & BMP: 09/19/16 03:52 09/19/16 03:52 Lab Results: I have reviewed the past 24 hour labs - Diagnostic Findings Procedure: Chest x-ray: pending Assessment and Plan (1) COPD with exacerbation Status: Chronic Assessment and plan: Patient on ventilator. Getting steroids. Will reduce the dose. Needs antibiotics. Continue bronchodilators. His PCO2 is elevated. Will add Diamox. Consider Aminophyllin if no improvement in 24 hours 09/19/2016 lungs sound much better today. Still has elevated PCO2. Will start on CPAP trials. Change sedation to Precedex to keep him more alert. Current Visit: No (2) Atrial fibrillation Status: Acute Assessment and plan: Controlled rate. On anticoagulants. INR is subtherapeutic. 09/19/2016 rate controlled. Current Visit: Yes Qualifiers: Atrial fibrillation type: chronic Qualified Code(s): I48.2 - Chronic atrial fibrillation (3) Chronic anticoagulation Status: Chronic Assessment and plan: INR subtherapeutic. Defer to cardiology. Current Visit: Yes (4) Ischemic cardiomyopathy Status: Chronic Assessment and plan: Reportedly has ejection fraction 25% 5 years ago. Repeat echo pending. Cardiology following. 09/19/2016 ejection fraction 45% on yesterday's echo. This represents marked improvement. Current Visit: Yes (5) Acute and chronic respiratory failure Status: Acute Assessment and plan: Has PCO2 of 59 on the ventilator with normal pH. This suggests that he has a chronically elevated PCO2. Will make it somewhat difficult to wean. Adding Diamox. Consider Aminophyllin. 09/19/2016 PCO2 is down to 49 this morning. Will not start Aminophyllin. Current Visit: Yes Qualifiers: Respiratory failure complication: hypoxia Qualified Code(s): J96.21 - Acute and chronic respiratory failure with hypoxia (6) Smoker Status: Chronic Assessment and plan: Will need further discussion of smoking cessation once he is off the vent. Current Visit: Yes
[2016-09-19] MEDS: ALBUTEROL/IPRATROPIUM 3 ML NEB RESP TX SCH ×3 (06:53→19:49)
[2016-09-19] MEDS ORDERED: DEXMEDETOMIDINE 200 MCG in SODIUM CHLORIDE 0.9% 48 ML IV SCH (07:00)
--- NOTE | 2016-09-19 07:17 | XRay Report ---
History: Patient on ventilator Date: 09/19/2016 Study: Chest x-ray AP portable Comparison exam: 09/18/2016 The endotracheal and nasogastric tubes remain in satisfactory position. The cardiac silhouette is not enlarged. The mediastinal contours are stable. The pulmonary vasculature is not engorged. There is some continued patchy and strandy atelectasis/infiltrate in the right lung base, the same or minimally improved. The lungs and pleural spaces are otherwise clear. Osseous structures are unchanged. The left subclavian pacemaker device is similar. Impression: Continued right basilar atelectasis/infiltrate, the same or only minimally improved. Otherwise unchanged PROCEDURE INTERPRETED AT [facility] [place] DEPARTMENT OF RADIOLOGY Final Report Signed by: Dr. Corie Newell
[2016-09-19] MEDS: LEVOFLOXACIN INJ 500 MG in PREMIX 1 EACH IV SCH (07:48)
[2016-09-19] MEDS: LINACLOTIDE 145 MCG CAPSULE PO SCH (07:49)
[2016-09-19] MEDS: GLIMEPIRIDE 4 MG TABLET PO SCH ×2 (07:50→16:17)
[2016-09-19] MEDS: FUROSEMIDE 40 MG/4 ML VIAL IV SCH ×2 (07:51→16:18)
[2016-09-19] MEDS ORDERED: POTASSIUM CHLORIDE RIDER 100 ML IV ONE (08:08)
[2016-09-19] MEDS: MAGNESIUM CHLORIDE 64 MG TABLET PO SCH ×2 (09:22→20:32)
[2016-09-19] MEDS: DILTIAZEM 30 MG TABLET PO SCH ×4 (09:22→20:33)
[2016-09-19] MEDS: CARVEDILOL 12.5 MG TABLET PO SCH ×2 (09:23→20:33)
[2016-09-19] MEDS: RAMIPRIL 5 MG CAPSULE PO SCH (09:23)
[2016-09-19] MEDS: ASPIRIN EC 81 MG TABLET PO SCH (09:23)
[2016-09-19] MEDS: POTASSIUM CHLORIDE 20 MEQ/15 ML UDCUP PO SCH ×3 (09:24→20:33)
[2016-09-19] MEDS: MEMANTINE 5 MG TABLET PO SCH (09:24)
[2016-09-19] MEDS: ISOSORBIDE MONONITRATE 60 MG TABLET PO SCH (09:25)
[2016-09-19] MEDS: BUDESONIDE/FORMOTEROL 160-4.5 INHALER 6 GM INH SCH ×2 (09:25→23:56)
--- NOTE | 2016-09-19 10:08 | Cardiology Progress Note ---
<Constanza Kelley - Last Filed: 09/19/16 09:13> Assessment and Plan (1) Acute exacerbation of CHF (congestive heart failure) Status: Acute Assessment and plan: SEE PLAN OF CARE LISTED BELOW Current Visit: Yes Qualifiers: Congestive heart failure type: systolic Qualified Code(s): I50.23 - Acute on chronic systolic (congestive) heart failure (2) Atrial fibrillation Status: Acute Assessment and plan: SEE PLAN OF CARE LISTED BELOW Current Visit: Yes Qualifiers: Atrial fibrillation type: chronic Qualified Code(s): I48.2 - Chronic atrial fibrillation (3) COPD with exacerbation Status: Chronic Current Visit: No (4) Chronic anticoagulation Status: Chronic Assessment and plan: SEE PLAN OF CARE LISTED BELOW Current Visit: Yes (5) Hypertension Status: Chronic Assessment and plan: SEE PLAN OF CARE LISTED BELOW Current Visit: Yes (6) Dyslipidemia Status: Chronic Assessment and plan: SEE PLAN OF CARE LISTED BELOW Current Visit: Yes (7) Coronary artery disease involving coronary bypass graft Status: Chronic Assessment and plan: SEE PLAN OF CARE LISTED BELOW Current Visit: Yes (8) Diabetes Status: Chronic Assessment and plan: SEE PLAN OF CARE LISTED BELOW Current Visit: Yes Qualifiers: Diabetes mellitus type: type 2 Diabetes mellitus bed bug exterminator insulin use: with bed bug exterminator use (9) Smoker Status: Chronic Assessment and plan: SEE PLAN OF CARE LISTED BELOW Current Visit: Yes (10) Dyspnea on exertion Status: Acute Assessment and plan: SEE PLAN OF CARE LISTED BELOW Current Visit: Yes (11) Ischemic cardiomyopathy Status: Chronic Assessment and plan: SEE PLAN OF CARE LISTED BELOW Current Visit: Yes Cardiology - PN: Subj Interval history: [employer]: Dr. Lagunas SUMMARY - Mr. Kim is a 71 year old male with known history of coronary artery disease, routinely followed by Dr. Lagunas. Patient was transferred to [facility] with complaints of chest pain and shortness of breath he has cardiac risk factors significant for known history of coronary artery disease, diabetes, hypertension, advanced age, sedentary lifestyle and current everyday smoker. patient has a past medical history of dementia, atrial fibrillation (chronically anticoagulated with Coumadin), ischemic cardiomyopathy (most recent ejection fraction 25% in 2011) and COPD. Patient underwent coronary artery bypass grafting in 2002 with ALCANTAR to LAD, SVG to circumflex artery and SVG to diagonal. Patient's most recent heart catheterization was performed in [address] Lagunas. At that time, 1 of the 3 grafts were patent with a ALCANTAR graft to LAD widely patent without evidence of significant stenosis. Diffuse severe left ventricular hypokinesis, overall ejection fraction in the 25% range. SVG to marginal completely occluded and SVG to diagonal completely occluded. Widely patent stent to the circumflex artery. Patient has not followed up in the cardiology clinic in several years. Patient presented to [facility] with complaints of chest pain and shortness of breath. Overnight, he went into respiratory distress and was transferred down to the ICU. He was then intubated and placed on the ventilator. August UPDATE - Patient was seen and examined in the ICU. He remains sedated and ventilated. He does have an element of congestive heart failure. However, this is primarily an exacerbation of his COPD. Echocardiogram was done this admission which revealed improved ejection fraction from 25 to 45%. At this point, we will continue current plan of care. Vital signs are stable. He remains in atrial flutter/flutter with a controlled ventricular response. I will discuss further with Dr. Temple and await his further recommendations. ASSESSMENT/PLAN: 1. COPD WITH EXACERBATION - This is acute on chronic. Now status post intubation. Pulmonary is following. Continue IV steroids, antibiotics and bronchodilators. Wean from ventilator as tolerated. 1. CHF, SYSTOLIC DYSFUCTION - Echocardiogram this admission revealed improved EF, estimated approximately 45%. Chest x-ray is without overt heart failure this morning. Continue IV diuresis with Lasix as patient is diuresing well. Daily weights and strict I's and O's. Will consider adding Aldactone if needed. 2. ATRIAL FIBRILLATION WITH RVR - This appears to be chronic. Now rate controlled with current medication regimen. Cardizem was added to his medication regimen yesterday, he is tolerating well. Historically, he has been anticoagulated with Coumadin. INR today is pending. Will continue current dose of Coumadin. Continue to monitor daily INR and adjust as needed throughout his hospitalization. 3. CAD, STATUS POST CABG - Patient underwent CABG in 2002 with SVG to diagonal , SVG to circumflex and ALCANTAR to LAD. Continue current plan of care. 4. ISCHEMIC CARDIOMYOPATHY - Ejection fraction improved per echocardiogram this admission. Ejection fraction is now 45%. At this point, we will continue patient's current medication regimen with beta-kellie and VILMA inhibitor. Continue IV diuresis. Will consider adding Aldactone if needed. 6. DIABETES - Management per attending. 7. DYSLIPIDEMIA - Continue lipid-lowering agent. 8. CHRONIC ANTICOAGULATION - INR this morning is pending. Continue current plan of care with Coumadin. INR daily. 9. CURRENT EVERYDAY SMOKER - Smoking cessation will need to be discussed once extubated from the ventilator. 10. RESPIRATORY FAILURE - This is acute on chronic. Pulmonary is following. Will follow their recommendations. 11. HYPERTENSION - Under well controlled today. Continue current plan of care. Will discuss with Dr. Temple and await his additional recommendations. Exam (Progress Note) - Constitutional Vitals: Period Temp Pulse Resp BP Sys/Gutiérrez Pulse Ox Last 24 Hr 97 F-97.9 F 62-101 14-29 78-126/53-85 95-100 Exam: General: Appears comfortable on the ventilator. Sedated. HEENT: PERRL, normocephalic, atraumatic. Mucous membranes moist. No jaundice noted. Conjunctiva moist and clear, sclerae anicteric Neck: No JVD/HJR, no thyromegaly or lymphadenopathy noted. No carotid bruit appreciated Cardiac: Irregular rhythm, controlled rate. No murmur rub or gallop. Lungs: Only minimal wheezing auscultated today. On the ventilator. Abdomen: Soft, bowel sounds normoactive. Extremities: No clubbing, cyanosis or edema noted. Upper extremity pulses 2+. Lower extremity pulses 2+. Capillary refill less than 3 seconds. Skin: No unusual lesions or rashes. No skin breakdown appreciated. Neuro: Unable to assess as patient is sedated on the ventilator. Result/EKG - Labs CBC & BMP: 09/19/16 03:52 09/19/16 03:52 Lab Results: I have reviewed the past 24 hour labs Labs: Laboratory Results - last 24 hr 09/18/16 09/18/16 09/18/16 09:54 11:56 13:56 WBC RBC Hgb Hct MCV MCH MCHC RDW Plt Count MPV Neut % (Auto) Lymph % (Auto) Rowan % (Auto) Eos % (Auto) Baso % (Auto) Neut # (Auto) Lymph # (Auto) Rowan # (Auto) Eos # (Auto) Baso # (Auto) Immature Gran % Nucleated RBC % Immature Gran # Nucleated RBCs # ABG pH ABG pCO2 ABG pO2 ABG HCO3 ABG Total CO2 ABG O2 Saturation ABG Base Excess FiO2 Sodium Potassium Chloride Carbon Dioxide Anion Gap BUN Creatinine GFR Calculation BUN/Creatinine Ratio Glucose POC Glucose 278 H Calculated Osmolality Calcium Magnesium Total Creatine Kinase 86 D CK-MB (CK-2) 1.5 Troponin I 0.033 Urine Color Straw Urine Appearance Clear Urine pH 5.0 Ur Specific [place] 1.008 Urine Protein Negative Urine Glucose (UA) Negative Urine Ketones Negative Urine Blood Moderate Urine Nitrate Negative Urine Bilirubin Negative Urine Urobilinogen < 2.0 H Urine Leukocytes Negative Urine RBC 43 Urine WBC 2 Hyaline Casts 18 Urine Mucus Occasional Ur Culture Indicated? Not indicated 09/18/16 09/18/16 09/18/16 17:39 18:07 23:38 WBC RBC Hgb Hct MCV MCH MCHC RDW Plt Count MPV Neut % (Auto) Lymph % (Auto) Rowan % (Auto) Eos % (Auto) Baso % (Auto) Neut # (Auto) Lymph # (Auto) [place] # (Auto) Eos # (Auto) Baso # (Auto) Immature Gran % Nucleated RBC % Immature Gran # Nucleated RBCs # ABG pH ABG pCO2 ABG pO2 ABG HCO3 ABG Total CO2 ABG O2 Saturation ABG Base Excess FiO2 Sodium Potassium Chloride Carbon Dioxide Anion Gap BUN Creatinine GFR Calculation BUN/Creatinine Ratio Glucose POC Glucose 222 H 177 H Calculated Osmolality Calcium Magnesium Total Creatine Kinase 74 CK-MB (CK-2) 1.0 Troponin I 0.042 Urine Color Urine Appearance Urine pH Ur Specific [place] Urine Protein Urine Glucose (UA) Urine Ketones Urine Blood Urine Nitrate Urine Bilirubin Urine Urobilinogen Urine Leukocytes Urine RBC Urine WBC Hyaline Casts Urine Mucus Ur Culture Indicated? 09/19/16 09/19/16 09/19/16 02:22 03:52 03:52 WBC 10.8 D RBC 4.30 Hgb 12.8 L Hct 38.4 L MCV 89.3 MCH 30 MCHC 33.3 RDW 13.9 Plt Count 137 MPV 11.6 Neut % (Auto) 83.1 H Lymph % (Auto) 10.6 L Rowan % (Auto) 5.6 Eos % (Auto) 0.0 Baso % (Auto) 0.1 Neut # (Auto) 9.0 H Lymph # (Auto) 1.2 L [place] # (Auto) 0.6 Eos # (Auto) 0.0 Baso # (Auto) 0.0 Immature Gran % 0.6 Nucleated RBC % 0.0 Immature Gran # 0.06 Nucleated RBCs # 0.00 ABG pH 7.481 H ABG pCO2 49.5 H ABG pO2 105.0 H ABG HCO3 35.3 H ABG Total CO2 32.3 H ABG O2 Saturation 98.1 ABG Base Excess 11.5 H FiO2 40.00 Sodium 142 Potassium 2.7 L Chloride 95 L Carbon Dioxide 37 H Anion Gap 12.7 BUN 45 H Creatinine 1.60 H GFR Calculation 64 BUN/Creatinine Ratio 28.00 H Glucose 156 H POC Glucose Calculated Osmolality 297.1 Calcium 9.2 Magnesium 1.9 Total Creatine Kinase CK-MB (CK-2) Troponin I Urine Color Urine Appearance Urine pH Ur Specific [place] Urine Protein Urine Glucose (UA) Urine Ketones Urine Blood Urine Nitrate Urine Bilirubin Urine Urobilinogen Urine Leukocytes Urine RBC Urine WBC Hyaline Casts Urine Mucus Ur Culture Indicated? 09/19/16 05:46 WBC RBC Hgb Hct MCV MCH MCHC RDW Plt Count MPV Neut % (Auto) Lymph % (Auto) Rowan % (Auto) Eos % (Auto) Baso % (Auto) Neut # (Auto) Lymph # (Auto) Row[place] # (Auto) Eos # (Auto) Baso # (Auto) Immature Gran % Nucleated RBC % Immature Gran # Nucleated RBCs # ABG pH ABG pCO2 ABG pO2 ABG HCO3 ABG Total CO2 ABG O2 Saturation ABG Base Excess FiO2 Sodium Potassium Chloride Carbon Dioxide Anion Gap BUN Creatinine GFR Calculation BUN/Creatinine Ratio Glucose POC Glucose 138 H Calculated Osmolality Calcium Magnesium Total Creatine Kinase CK-MB (CK-2) Troponin I Urine Color Urine Appearance Urine pH Ur Specific [place] Urine Protein Urine Glucose (UA) Urine Ketones Urine Blood Urine Nitrate Urine Bilirubin Urine Urobilinogen Urine Leukocytes Urine RBC Urine WBC Hyaline Casts Urine Mucus Ur Culture Indicated? <Tamera Temple - Last Filed: 09/19/16 10:11> Assessment and Plan (1) COPD with exacerbation Status: Chronic Current Visit: No (2) Atrial fibrillation Status: Acute Assessment and plan: Continue rate control and anticoagulation. Mechanical ventilation his certainly seem to help his rate. Current Visit: Yes Qualifiers: Atrial fibrillation type: chronic Qualified Code(s): I48.2 - Chronic atrial fibrillation (3) Acute and chronic respiratory failure Status: Acute Current Visit: Yes Qualifiers: Respiratory failure complication: hypoxia Qualified Code(s): J96.21 - Acute and chronic respiratory failure with hypoxia (4) Ischemic cardiomyopathy Status: Chronic Assessment and plan: EF is improved as documented in previous note Current Visit: Yes Cardiology - PN: Subj Interval history: Patient remains intubated I saw him in the ICU. His ejection fraction is improved as previously documented he remained stable at this time. His rate is currently controlled this is chronic and he is anticoagulated. In the process of weaning mechanical ventilation. Exam (Progress Note) - Constitutional Vitals: Period Temp Pulse Resp BP Sys/Gutiérrez Pulse Ox Last 24 Hr 97 F-97.9 F 62-101 14-29 78-126/53-85 95-100 Exam: Agree with above physical assessment and examination. There has been little overall change in his status since yesterday from a cardiovascular standpoint Result/EKG - Labs CBC & BMP: 09/19/16 03:52 09/19/16 03:52 Labs: Laboratory Results - last 24 hr 09/18/16 09/18/16 09/18/16 09:54 11:56 13:56 WBC RBC Hgb Hct MCV MCH MCHC RDW Plt Count MPV Neut % (Auto) Lymph % (Auto) Row[place] % (Auto) Eos % (Auto) Baso % (Auto) Neut # (Auto) Lymph # (Auto) [place] # (Auto) Eos # (Auto) Baso # (Auto) Immature Gran % Nucleated RBC % Immature Gran # Nucleated RBCs # ABG pH ABG pCO2 ABG pO2 ABG HCO3 ABG Total CO2 ABG O2 Saturation ABG Base Excess FiO2 Sodium Potassium Chloride Carbon Dioxide Anion Gap BUN Creatinine GFR Calculation BUN/Creatinine Ratio Glucose POC Glucose 278 H Calculated Osmolality Calcium Magnesium Total Creatine Kinase 86 D CK-MB (CK-2) 1.5 Troponin I 0.033 Urine Color Straw Urine Appearance Clear Urine pH 5.0 Ur Specific [place] 1.008 Urine Protein Negative Urine Glucose (UA) Negative Urine Ketones Negative Urine Blood Moderate Urine Nitrate Negative Urine Bilirubin Negative Urine Urobilinogen < 2.0 H Urine Leukocytes Negative Urine RBC 43 Urine WBC 2 Hyaline Casts 18 Urine Mucus Occasional Ur Culture Indicated? Not indicated 09/18/16 09/18/16 09/18/16 17:39 18:07 23:38 WBC RBC Hgb Hct MCV MCH MCHC RDW Plt Count MPV Neut % (Auto) Lymph % (Auto) Rowan % (Auto) Eos % (Auto) Baso % (Auto) Neut # (Auto) Lymph # (Auto) [place] # (Auto) Eos # (Auto) Baso # (Auto) Immature Gran % Nucleated RBC % Immature Gran # Nucleated RBCs # ABG pH ABG pCO2 ABG pO2 ABG HCO3 ABG Total CO2 ABG O2 Saturation ABG Base Excess FiO2 Sodium Potassium Chloride Carbon Dioxide Anion Gap BUN Creatinine GFR Calculation BUN/Creatinine Ratio Glucose POC Glucose 222 H 177 H Calculated Osmolality Calcium Magnesium Total Creatine Kinase 74 CK-MB (CK-2) 1.0 Troponin I 0.042 Urine Color Urine Appearance Urine pH Ur Specific [place] Urine Protein Urine Glucose (UA) Urine Ketones Urine Blood Urine Nitrate Urine Bilirubin Urine Urobilinogen Urine Leukocytes Urine RBC Urine WBC Hyaline Casts Urine Mucus Ur Culture Indicated? 09/19/16 09/19/16 09/19/16 02:22 03:52 03:52 WBC 10.8 D RBC 4.30 Hgb 12.8 L Hct 38.4 L MCV 89.3 MCH 30 MCHC 33.3 RDW 13.9 Plt Count 137 MPV 11.6 Neut % (Auto) 83.1 H Lymph % (Auto) 10.6 L Rowan % (Auto) 5.6 Eos % (Auto) 0.0 Baso % (Auto) 0.1 Neut # (Auto) 9.0 H Lymph # (Auto) 1.2 L [place]an # (Auto) 0.6 Eos # (Auto) 0.0 Baso # (Auto) 0.0 Immature Gran % 0.6 Nucleated RBC % 0.0 Immature Gran # 0.06 Nucleated RBCs # 0.00 ABG pH 7.481 H ABG pCO2 49.5 H ABG pO2 105.0 H ABG HCO3 35.3 H ABG Total CO2 32.3 H ABG O2 Saturation 98.1 ABG Base Excess 11.5 H FiO2 40.00 Sodium 142 Potassium 2.7 L Chloride 95 L Carbon Dioxide 37 H Anion Gap 12.7 BUN 45 H Creatinine 1.60 H GFR Calculation 64 BUN/Creatinine Ratio 28.00 H Glucose 156 H POC Glucose Calculated Osmolality 297.1 Calcium 9.2 Magnesium 1.9 Total Creatine Kinase CK-MB (CK-2) Troponin I Urine Color Urine Appearance Urine pH Ur Specific [place] Urine Protein Urine Glucose (UA) Urine Ketones Urine Blood Urine Nitrate Urine Bilirubin Urine Urobilinogen Urine Leukocytes Urine RBC Urine WBC Hyaline Casts Urine Mucus Ur Culture Indicated? 09/19/16 05:46 WBC RBC Hgb Hct MCV MCH MCHC RDW Plt Count MPV Neut % (Auto) Lymph % (Auto) Row[place] % (Auto) Eos % (Auto) Baso % (Auto) Neut # (Auto) Lymph # (Auto) [place] # (Auto) Eos # (Auto) Baso # (Auto) Immature Gran % Nucleated RBC % Immature Gran # Nucleated RBCs # ABG pH ABG pCO2 ABG pO2 ABG HCO3 ABG Total CO2 ABG O2 Saturation ABG Base Excess FiO2 Sodium Potassium Chloride Carbon Dioxide Anion Gap BUN Creatinine GFR Calculation BUN/Creatinine Ratio Glucose POC Glucose 138 H Calculated Osmolality Calcium Magnesium Total Creatine Kinase CK-MB (CK-2) Troponin I Urine Color Urine Appearance Urine pH Ur Specific [place] Urine Protein Urine Glucose (UA) Urine Ketones Urine Blood Urine Nitrate Urine Bilirubin Urine Urobilinogen Urine Leukocytes Urine RBC Urine WBC Hyaline Casts Urine Mucus Ur Culture Indicated?
[2016-09-19 11:14] LABS: INR 1.3; PT Patient Result 14.5 SECS
[2016-09-19 14:00] LABS: INR 1.3; PT Patient Result 14.2 SECS
[2016-09-19] MEDS: DEXMEDETOMIDINE 400 MCG in SODIUM CHLORIDE 0.9% 96 ML IV SCH ×2 (14:15→21:51)
[2016-09-19] MEDS: oxyCODONE/ACETAMINOPHEN 5-325 MG TABLET PO PRN (17:02)
--- NOTE | 2016-09-19 17:21 | Hospitalist Progress Note ---
Assessment and Plan (1) COPD (chronic obstructive pulmonary disease) Status: Acute Assessment and plan: Patient with acute COPD exacerbation requiring mechanical ventilation. Steroids and antibiotics started. Pulmonary following. Current Visit: Yes Qualifiers: COPD type: COPD with acute exacerbation Qualified Code(s): J44.1 - Chronic obstructive pulmonary disease with (acute) exacerbation (2) Ischemic cardiomyopathy Status: Chronic Assessment and plan: His cardiomyopathy has improved since his last cardiac cath in 2016 as evidenced by his new echocardiogram and ejection fraction of 45%. Cardiology is following. Echocardiogram results are as below. The overall ejection fraction appears to be approximately 45%. Diastolic parameters are equivocal. Tricuspid valve is normal there is mild tricuspid regurgitation peak velocity of 3.08 m/s corresponds with right ventricular cell pressure of 38 mmHg plus the right atrial pressure. Pulmonic valve is normal there is trivial pulmonic insufficiency. There is mild central jet of mitral regurgitation Current Visit: Yes (3) History of atrial fibrillation Status: Acute Assessment and plan: Rate controlled. Increase Cardizem. Current Visit: No (4) Acute exacerbation of CHF (congestive heart failure) Status: Acute Assessment and plan: Continue IV Lasix. Home medications reviewed and reconciled. Cardiology consult reviewed. Current Visit: Yes Qualifiers: Congestive heart failure type: systolic Qualified Code(s): I50.23 - Acute on chronic systolic (congestive) heart failure (5) Chronic anticoagulation Status: Chronic Assessment and plan: INR subtherapeutic. Continue Coumadin. Current Visit: Yes (6) Hypertension Status: Chronic Current Visit: Yes (7) Dyslipidemia Status: Chronic Current Visit: Yes (8) Diabetes Status: Chronic Current Visit: Yes Qualifiers: Diabetes mellitus type: type 2 Diabetes mellitus termite helper insulin use: with jail use (9) Smoker Status: Chronic Current Visit: Yes Hospitalist: Subjective Interval history: Patient seen and examined. No acute events overnight. Case discussed with nursing staff. Labs reviewed. Will start tube feedings today. Exam - Constitutional Vitals: Period Temp Pulse Resp BP Sys/Gutiérrez Pulse Ox Last 24 Hr 97.8 F-97.9 F 62-101 14-29 88-150/63-95 95-100 Exam: Constitutional System: Mild distress. No tremulousness. Head: Normocephalic, atraumatic. Ears, Nose and Throat System: No pain or tenderness. No epistaxis or discharge. ET tube in place. Eyes System: Pupils equal, round, and reactive. Extraocular muscles intact. Neck: Supple, without adenopathy, No jugular venous distention. Respiratory System: Chest clear to auscultation at the bases. Cardiovascular System: Heart with regular rate and rhythm. No murmur. GI System: Abdomen soft, nontender. Normo active bowel sounds present. Musculoskeletal System: limbs with bilateral pedal edema. Full distal pulses. Neurological System: No discernable sensory deficit. No aphasia Psychiatric System: Conversation is rational Results - Labs CBC & BMP: 09/19/16 03:52 09/19/16 13:37 Lab Results: I have reviewed the past 24 hour labs
[2016-09-19] MEDS: WARFARIN 5 MG TABLET PO SCH (18:27)
[2016-09-19] MEDS: INSULIN GLARGINE 100 UNIT/ML SUBCUT SCH (20:32)
[2016-09-19] MEDS: ATORVASTATIN 40 MG TABLET PO SCH (20:32)
[2016-09-19] MEDS: BACLOFEN 10 MG TABLET PO SCH (20:33)
[2016-09-19] MEDS: ISOSORBIDE DINITRATE 20 MG TABLET PO SCH (20:33)
[2016-09-20] MEDS: ALBUTEROL/IPRATROPIUM 3 ML NEB RESP TX SCH ×4 (00:17→19:05)
[2016-09-20] MEDS: INSULIN REGULAR 100 UNIT/ML SUBCUT SCH ×5 (00:28→23:18)
[2016-09-20 01:19] LABS: Basophils % 0.1 % (0.0-0.8); Hematocrit 41.8 VOL% (42.0-52.0); Hemoglobin 14.1 GM/DL (14.0-18.0); Immature Granulocytes % 0.3 %; Immature Granulocytes Absolute 0.04 #; Lymphocytes # 1.6 10*3/uL (1.4-4.0); Lymphocytes % 12.9 % (21.2-54.2); Mean Corpuscular HGB Conc 33.7 GM/DL (32-36); Mean Corpuscular Hemoglobin 30 PG (27-34); Mean Corpuscular Volume 88.6 FL (87-102); Mean Platelet Volume 11.5 FL (9.6-12.0); Monocytes # 0.8 10*3/uL (0.11-0.8); Monocytes % 6.7 % (1.7-12.7); Neutrophils # 9.9 10*3/uL (1.4-7.4); Platelet Count 136 T/CUMM (130-400); Red Blood Count 4.72 MC/CUMM (3.8-5.5); Red Cell Distribution Width 13.5 % (9.3-17.3); White Blood Count 12.4 T/CUMM (4-12)
[2016-09-20 01:20] LABS: Immature Platelet Fraction 4.1 % (1.0-7.0)
[2016-09-20 01:53] LABS: INR 1.3
[2016-09-20 02:10] LABS: Phosphorous 5.1 MG/DL (2.5-4.9); Prealbumin 22.1 MG/DL (20-40)
[2016-09-20 02:12] LABS: Calcium 8.9 MG/DL (8.5-10.1)
[2016-09-20 02:13] LABS: Osmolality,Calculated 298.4 MOS/KG (273-304); Potassium 3.6 MMOL/L (3.5-5.1)
[2016-09-20] MEDS: POTASSIUM CHLORIDE RIDER 10 MEQ in PREMIX 1 EACH IV PRN (02:26)
[2016-09-20 02:28] LABS: Magnesium 2.1 MG/DL (1.8-2.4)
[2016-09-20] MEDS: DEXMEDETOMIDINE 400 MCG in SODIUM CHLORIDE 0.9% 96 ML IV SCH ×4 (03:47→19:01)
[2016-09-20 03:54] LABS: ABG Base Excess 7.4 MMOL/L (-2.5-2.5); ABG HCO3 31.5 MMOL/L (20-26); ABG Oxygen Saturation 98.2 % (95-100); ABG PCO2 42.4 MM HG (35-48); ABG PH 7.489 (7.35-7.45); ABG PO2 114.2 MM HG (80-95); ABG TCO2 32.8 MMOL/L (23-27); Allen Test Positive; Pt O2 Delivery Device Ventilator
--- NOTE | 2016-09-20 07:17 | Pulmonology Progress Note ---
Pulmonary - PN: Subj Interval history: This 71-year-old black male is on the ventilator for acute on chronic respiratory failure. He has COPD with an exacerbation. May have some bronchopneumonia in the right base. Had an element of congestive heart failure. His ejection fraction is better than it was a couple years back. This is primarily exacerbation of his COPD. Today his lungs sound better. We will start doing CPAP's and wean as tolerated. 09/20/2016 patient tolerating CPAP. Will check mechanics and ABGs on CPAP and see if he is ready to be extubated. Exam (Progress Note) - Constitutional Vitals: Period Temp Pulse Resp BP Sys/Gutiérrez Pulse Ox Last 24 Hr 96.1 F-97.8 F 26-88 16-28 64-150/43-95 95-100 Exam: Patient sedated. Vital signs normal. Pupils react to light. Orotracheal tube in place. Neck is supple. Chest reveals prolonged expiratory phase with no expiratory wheezes. Heart normal rate rhythm no murmurs. Abdomen soft no masses. Bowel sounds present. Extremities no clubbing cyanosis edema. Results - Labs CBC & BMP: 09/20/16 00:54 09/20/16 00:54 Lab Results: I have reviewed the past 24 hour labs - Diagnostic Findings Procedure: Chest x-ray: image reviewed by me (Minimal right basilar infiltrate. Cardiomegaly. ET tube good position) Assessment and Plan (1) COPD with exacerbation Status: Acute Assessment and plan: Patient on ventilator. Getting steroids. Will reduce the dose. Needs antibiotics. Continue bronchodilators. His PCO2 is elevated. Will add Diamox. Consider Aminophyllin if no improvement in 24 hours 09/19/2016 lungs sound much better today. Still has elevated PCO2. Will start on CPAP trials. Change sedation to Precedex to keep him more alert. 09/20/2016 lungs sound better. Tolerating CPAP. ABGs improved. We will see if we can get him weaned. PCO2 is down to 42. Current Visit: No (2) Atrial fibrillation Status: Acute Assessment and plan: Controlled rate. On anticoagulants. INR is subtherapeutic. 09/19/2016 rate controlled. 09/20/2016 heart rate is controlled Current Visit: Yes Qualifiers: Atrial fibrillation type: chronic Qualified Code(s): I48.2 - Chronic atrial fibrillation (3) Chronic anticoagulation Status: Chronic Assessment and plan: INR subtherapeutic. Defer to cardiology. 09/20/2016 INR still only 1.3. Current Visit: Yes (4) Ischemic cardiomyopathy Status: Chronic Assessment and plan: Reportedly has ejection fraction 25% 5 years ago. Repeat echo pending. Cardiology following. 09/19/2016 ejection fraction 45% on yesterday's echo. This represents marked improvement. 09/20/2016 congestive heart failure was relatively mild Current Visit: Yes (5) Acute and chronic respiratory failure Status: Acute Assessment and plan: Has PCO2 of 59 on the ventilator with normal pH. This suggests that he has a chronically elevated PCO2. Will make it somewhat difficult to wean. Adding Diamox. Consider Aminophyllin. 09/19/2016 PCO2 is down to 49 this morning. Will not start Aminophyllin. 09/20/2016 COPD exacerbation is the primary cause of her respiratory failure. PCO2 is down to normal. Will check mechanics and blood gases on CPAP and see if we can get him extubated today. Current Visit: Yes Qualifiers: Respiratory failure complication: hypoxia Qualified Code(s): J96.21 - Acute and chronic respiratory failure with hypoxia (6) Smoker Status: Chronic Assessment and plan: Will need further discussion of smoking cessation once he is off the vent. Current Visit: Yes
--- NOTE | 2016-09-20 07:51 | Cardiology Progress Note ---
<Constanza Kelley - Last Filed: 09/20/16 07:45> Assessment and Plan (1) Acute exacerbation of CHF (congestive heart failure) Status: Acute Assessment and plan: SEE PLAN OF CARE LISTED BELOW Current Visit: Yes Qualifiers: Congestive heart failure type: systolic Qualified Code(s): I50.23 - Acute on chronic systolic (congestive) heart failure (2) Atrial fibrillation Status: Acute Assessment and plan: SEE PLAN OF CARE LISTED BELOW Current Visit: Yes Qualifiers: Atrial fibrillation type: chronic Qualified Code(s): I48.2 - Chronic atrial fibrillation (3) COPD with exacerbation Status: Acute Current Visit: No (4) Chronic anticoagulation Status: Chronic Assessment and plan: SEE PLAN OF CARE LISTED BELOW Current Visit: Yes (5) Hypertension Status: Chronic Assessment and plan: SEE PLAN OF CARE LISTED BELOW Current Visit: Yes (6) Dyslipidemia Status: Chronic Assessment and plan: SEE PLAN OF CARE LISTED BELOW Current Visit: Yes (7) Coronary artery disease involving coronary bypass graft Status: Chronic Assessment and plan: SEE PLAN OF CARE LISTED BELOW Current Visit: Yes (8) Diabetes Status: Chronic Assessment and plan: SEE PLAN OF CARE LISTED BELOW Current Visit: Yes Qualifiers: Diabetes mellitus type: type 2 Diabetes mellitus data operations leader insulin use: with data operations leader use (9) Smoker Status: Chronic Assessment and plan: SEE PLAN OF CARE LISTED BELOW Current Visit: Yes (10) Dyspnea on exertion Status: Acute Assessment and plan: SEE PLAN OF CARE LISTED BELOW Current Visit: Yes (11) Ischemic cardiomyopathy Status: Chronic Assessment and plan: SEE PLAN OF CARE LISTED BELOW Current Visit: Yes Cardiology - PN: Subj Interval history: Sales Ledger Clerk: Dr. Lagunas SUMMARY - Mr. Kim is a 71 year old male with known history of coronary artery disease, routinely followed by Dr. Lagunas. Patient was transferred to [facility] with complaints of chest pain and shortness of breath he has cardiac risk factors significant for known history of coronary artery disease, diabetes, hypertension, advanced age, sedentary lifestyle and current everyday smoker. patient has a past medical history of dementia, atrial fibrillation (chronically anticoagulated with Coumadin), ischemic cardiomyopathy (most recent ejection fraction 25% in 2011) and COPD. Patient underwent coronary artery bypass grafting in 2002 with ALCANTAR to LAD, SVG to circumflex artery and SVG to diagonal. Patient's most recent heart catheterization was performed in [address] Lagunas. At that time, 1 of the 3 grafts were patent with a ALCANTAR graft to LAD widely patent without evidence of significant stenosis. Diffuse severe left ventricular hypokinesis, overall ejection fraction in the 25% range. SVG to marginal completely occluded and SVG to diagonal completely occluded. Widely patent stent to the circumflex artery. Patient has not followed up in the cardiology clinic in several years. Patient presented to [facility] with complaints of chest pain and shortness of breath. Overnight, he went into respiratory distress and was transferred down to the ICU. He was then intubated and placed on the ventilator. SEPTEMBER 20 2016 UPDATE - Patient was seen and examined in the ICU. He remains sedated and ventilated. He does have an element of congestive heart failure. However, this is primarily an exacerbation of his COPD. Echocardiogram was done this admission which revealed improved ejection fraction from 25 to 45%. Patient did reasonably well overnight. Per nursing staff, patient is tolerating CPAP. Hopeful for possible extubation soon. I's and O's were reviewed. Patient's weight is down and he is diuresing well with IV Lasix. At this point, we will continue current plan of care. Vital signs are stable. He remains in atrial flutter/flutter with a controlled ventricular response. I will discuss further with Dr. Temple and await his further recommendations. ASSESSMENT/PLAN: 1. COPD WITH EXACERBATION - This is acute on chronic. Now status post intubation. Pulmonary is following. Continue IV steroids, antibiotics and bronchodilators. Wean from ventilator as tolerated. 1. CHF, SYSTOLIC DYSFUCTION - Echocardiogram this admission revealed improved EF, estimated approximately 45%. Chest x-ray is without overt heart failure this morning. Continue IV diuresis with Lasix as patient is diuresing well. Daily weights and strict I's and O's. 2. ATRIAL FIBRILLATION WITH RVR - This appears to be chronic. Now rate controlled with current medication regimen. Historically, he has been anticoagulated with Coumadin. INR today is 1.3. Will continue current dose of Coumadin. Continue to monitor daily INR and adjust as needed throughout his hospitalization. 3. CAD, STATUS POST CABG - Patient underwent CABG in 2002 with SVG to diagonal , SVG to circumflex and ALCANTAR to LAD. Continue current plan of care. 4. ISCHEMIC CARDIOMYOPATHY - Ejection fraction improved per echocardiogram this admission. Ejection fraction is now 45%. At this point, we will continue patient's current medication regimen with beta-kellie and VILMA inhibitor. Continue IV diuresis. Can consider adding Aldactone if needed. 6. DIABETES - Management per attending. 7. DYSLIPIDEMIA - Continue lipid-lowering agent. 8. CHRONIC ANTICOAGULATION - INR this morning is 1.3. Continue current plan of care with Coumadin. INR daily. 9. CURRENT EVERYDAY SMOKER - Smoking cessation will need to be discussed once extubated from the ventilator. 10. RESPIRATORY FAILURE - This is acute on chronic. Pulmonary is following. Will follow their recommendations. 11. HYPERTENSION - Under well controlled today. Continue current plan of care. Will discuss with Dr. Temple and await his additional recommendations. Exam (Progress Note) - Constitutional Vitals: Period Temp Pulse Resp BP Sys/Gutiérrez Pulse Ox Last 24 Hr 96.1 F-97.8 F 26-88 16-28 64-150/43-95 95-100 Exam: General: Appears comfortable on the ventilator. Sedated. HEENT: PERRL, normocephalic, atraumatic. Mucous membranes moist. No jaundice noted. Conjunctiva moist and clear, sclerae anicteric Neck: No JVD/HJR, no thyromegaly or lymphadenopathy noted. No carotid bruit appreciated Cardiac: Irregular rhythm, controlled rate. No murmur rub or gallop. Lungs: Only minimal wheezing auscultated today, lung sounds are improving. On the ventilator. Abdomen: Soft, bowel sounds normoactive. Extremities: No clubbing, cyanosis or edema noted. Upper extremity pulses 2+. Lower extremity pulses 2+. Capillary refill less than 3 seconds. Skin: No unusual lesions or rashes. No skin breakdown appreciated. Neuro: Unable to assess as patient is sedated on the ventilator. Result/EKG - Labs CBC & BMP: 09/20/16 00:54 09/20/16 00:54 Lab Results: I have reviewed the past 24 hour labs Labs: Laboratory Results - last 24 hr 09/19/16 09/19/16 09/19/16 05:46 10:38 11:37 WBC RBC Hgb Hct MCV MCH MCHC RDW Plt Count MPV Neut % (Auto) Lymph % (Auto) [place] % (Auto) Eos % (Auto) Baso % (Auto) Neut # (Auto) Lymph # (Auto) [place] # (Auto) Eos # (Auto) Baso # (Auto) Immature Gran % Nucleated RBC % Immature Gran # Nucleated RBCs # Immature Plt Fraction INR 1.3 PT Patient/Control Mix 14.5 ABG pH ABG pCO2 ABG pO2 ABG HCO3 ABG Total CO2 ABG O2 Saturation ABG Base Excess FiO2 Sodium Potassium Chloride Carbon Dioxide Anion Gap BUN Creatinine GFR Calculation BUN/Creatinine Ratio Glucose POC Glucose 138 H 200 H Calculated Osmolality Calcium Phosphorus Magnesium Prealbumin 09/19/16 09/19/16 09/19/16 13:37 13:38 17:48 WBC RBC Hgb Hct MCV MCH MCHC RDW Plt Count MPV Neut % (Auto) Lymph % (Auto) [place] % (Auto) Eos % (Auto) Baso % (Auto) Neut # (Auto) Lymph # (Auto) [place] # (Auto) Eos # (Auto) Baso # (Auto) Immature Gran % Nucleated RBC % Immature Gran # Nucleated RBCs # Immature Plt Fraction INR 1.3 PT Patient/Control Mix 14.2 ABG pH ABG pCO2 ABG pO2 ABG HCO3 ABG Total CO2 ABG O2 Saturation ABG Base Excess FiO2 Sodium Potassium 3.1 L Chloride Carbon Dioxide Anion Gap BUN Creatinine GFR Calculation BUN/Creatinine Ratio Glucose POC Glucose 207 H Calculated Osmolality Calcium Phosphorus Magnesium Prealbumin 09/19/16 09/20/16 09/20/16 23:39 00:54 00:54 WBC 12.4 H RBC 4.72 Hgb 14.1 Hct 41.8 L MCV 88.6 MCH 30 MCHC 33.7 RDW 13.5 Plt Count 136 MPV 11.5 Neut % (Auto) 80.0 H Lymph % (Auto) 12.9 L [place] % (Auto) 6.7 Eos % (Auto) 0.0 Baso % (Auto) 0.1 Neut # (Auto) 9.9 H Lymph # (Auto) 1.6 [place] # (Auto) 0.8 Eos # (Auto) 0.0 Baso # (Auto) 0.0 Immature Gran % 0.3 Nucleated RBC % 0.0 Immature Gran # 0.04 Nucleated RBCs # 0.00 Immature Plt Fraction 4.1 INR PT Patient/Control Mix ABG pH ABG pCO2 ABG pO2 ABG HCO3 ABG Total CO2 ABG O2 Saturation ABG Base Excess FiO2 Sodium 140 Potassium 3.6 Chloride 100 Carbon Dioxide 30 Anion Gap 13.6 BUN 51 H Creatinine 1.56 H GFR Calculation 66 BUN/Creatinine Ratio 32.00 H Glucose 212 H POC Glucose 259 H Calculated Osmolality 298.4 Calcium 8.9 Phosphorus Magnesium 2.1 Prealbumin 09/20/16 09/20/16 09/20/16 00:54 00:54 00:54 WBC RBC Hgb Hct MCV MCH MCHC RDW Plt Count MPV Neut % (Auto) Lymph % (Auto) [place] % (Auto) Eos % (Auto) Baso % (Auto) Neut # (Auto) Lymph # (Auto) [place] # (Auto) Eos # (Auto) Baso # (Auto) Immature Gran % Nucleated RBC % Immature Gran # Nucleated RBCs # Immature Plt Fraction INR 1.3 PT Patient/Control Mix 14.0 ABG pH ABG pCO2 ABG pO2 ABG HCO3 ABG Total CO2 ABG O2 Saturation ABG Base Excess FiO2 Sodium Potassium 3.6 Chloride Carbon Dioxide Anion Gap BUN Creatinine GFR Calculation BUN/Creatinine Ratio Glucose POC Glucose Calculated Osmolality Calcium Phosphorus 5.1 H Magnesium Prealbumin 22.1 09/20/16 09/20/16 03:42 06:06 WBC RBC Hgb Hct MCV MCH MCHC RDW Plt Count MPV Neut % (Auto) Lymph % (Auto) [place] % (Auto) Eos % (Auto) Baso % (Auto) Neut # (Auto) Lymph # (Auto) [place] # (Auto) Eos # (Auto) Baso # (Auto) Immature Gran % Nucleated RBC % Immature Gran # Nucleated RBCs # Immature Plt Fraction INR PT Patient/Control Mix ABG pH 7.489 H ABG pCO2 42.4 ABG pO2 114.2 H ABG HCO3 31.5 H ABG Total CO2 32.8 H ABG O2 Saturation 98.2 ABG Base Excess 7.4 H FiO2 35.00 Sodium Potassium Chloride Carbon Dioxide Anion Gap BUN Creatinine GFR Calculation BUN/Creatinine Ratio Glucose POC Glucose 192 H Calculated Osmolality Calcium Phosphorus Magnesium Prealbumin <Tamera Temple - Last Filed: 09/20/16 09:01> Assessment and Plan (1) COPD with exacerbation Status: Acute Current Visit: No (2) Atrial fibrillation Status: Acute Assessment and plan: Continue AV amandeep blocking agents increase carvedilol decrease Cardizem because of low EF Current Visit: Yes Qualifiers: Atrial fibrillation type: chronic Qualified Code(s): I48.2 - Chronic atrial fibrillation (3) Acute and chronic respiratory failure Status: Acute Current Visit: Yes Qualifiers: Respiratory failure complication: hypoxia Qualified Code(s): J96.21 - Acute and chronic respiratory failure with hypoxia (4) Ischemic cardiomyopathy Status: Chronic Assessment and plan: EF is improved continue medical therapy Current Visit: Yes Cardiology - PN: Subj Interval history: The patient appears to be doing better. His heart rate is better controlled. He is off his Cardizem infusion we will continue the enteral Cardizem and Coreg. Would like to eventually ideally get off of the Cardizem and titrate up on his beta-kellie given his depressed EF. He continues to have atrial fibrillation but his rate is controlled. Remains on the ventilator. His BUN/ creatinine ratio have gone up and he is diuresed well. I do not see any significant fluid on his chest x-ray which is dramatically improved I think we should decrease his diuretics. Exam (Progress Note) - Constitutional Vitals: Period Temp Pulse Resp BP Sys/Gutiérrez Pulse Ox Last 24 Hr 96.1 F-97.8 F 26-91 16-28 64-150/43-95 95-100 Exam: Rate is controlled and irregular his lungs are clear remainder as above he has no lower extremity edema. Result/EKG - Labs CBC & BMP: 09/20/16 00:54 09/20/16 00:54 Labs: Laboratory Results - last 24 hr 09/19/16 09/19/16 09/19/16 05:46 10:38 11:37 WBC RBC Hgb Hct MCV MCH MCHC RDW Plt Count MPV Neut % (Auto) Lymph % (Auto) [place] % (Auto) Eos % (Auto) Baso % (Auto) Neut # (Auto) Lymph # (Auto) [place] # (Auto) Eos # (Auto) Baso # (Auto) Immature Gran % Nucleated RBC % Immature Gran # Nucleated RBCs # Immature Plt Fraction INR 1.3 PT Patient/Control Mix 14.5 ABG pH ABG pCO2 ABG pO2 ABG HCO3 ABG Total CO2 ABG O2 Saturation ABG Base Excess FiO2 Sodium Potassium Chloride Carbon Dioxide Anion Gap BUN Creatinine GFR Calculation BUN/Creatinine Ratio Glucose POC Glucose 138 H 200 H Calculated Osmolality Calcium Phosphorus Magnesium Prealbumin 09/19/16 09/19/16 09/19/16 13:37 13:38 17:48 WBC RBC Hgb Hct MCV MCH MCHC RDW Plt Count MPV Neut % (Auto) Lymph % (Auto) [place] % (Auto) Eos % (Auto) Baso % (Auto) Neut # (Auto) Lymph # (Auto) [place] # (Auto) Eos # (Auto) Baso # (Auto) Immature Gran % Nucleated RBC % Immature Gran # Nucleated RBCs # Immature Plt Fraction INR 1.3 PT Patient/Control Mix 14.2 ABG pH ABG pCO2 ABG pO2 ABG HCO3 ABG Total CO2 ABG O2 Saturation ABG Base Excess FiO2 Sodium Potassium 3.1 L Chloride Carbon Dioxide Anion Gap BUN Creatinine GFR Calculation BUN/Creatinine Ratio Glucose POC Glucose 207 H Calculated Osmolality Calcium Phosphorus Magnesium Prealbumin 09/19/16 09/20/16 09/20/16 23:39 00:54 00:54 WBC 12.4 H RBC 4.72 Hgb 14.1 Hct 41.8 L MCV 88.6 MCH 30 MCHC 33.7 RDW 13.5 Plt Count 136 MPV 11.5 Neut % (Auto) 80.0 H Lymph % (Auto) 12.9 L [place] % (Auto) 6.7 Eos % (Auto) 0.0 Baso % (Auto) 0.1 Neut # (Auto) 9.9 H Lymph # (Auto) 1.6 [place] # (Auto) 0.8 Eos # (Auto) 0.0 Baso # (Auto) 0.0 Immature Gran % 0.3 Nucleated RBC % 0.0 Immature Gran # 0.04 Nucleated RBCs # 0.00 Immature Plt Fraction 4.1 INR PT Patient/Control Mix ABG pH ABG pCO2 ABG pO2 ABG HCO3 ABG Total CO2 ABG O2 Saturation ABG Base Excess FiO2 Sodium 140 Potassium 3.6 Chloride 100 Carbon Dioxide 30 Anion Gap 13.6 BUN 51 H Creatinine 1.56 H GFR Calculation 66 BUN/Creatinine Ratio 32.00 H Glucose 212 H POC Glucose 259 H Calculated Osmolality 298.4 Calcium 8.9 Phosphorus Magnesium 2.1 Prealbumin 09/20/16 09/20/16 09/20/16 00:54 00:54 00:54 WBC RBC Hgb Hct MCV MCH MCHC RDW Plt Count MPV Neut % (Auto) Lymph % (Auto) [place] % (Auto) Eos % (Auto) Baso % (Auto) Neut # (Auto) Lymph # (Auto) [place] # (Auto) Eos # (Auto) Baso # (Auto) Immature Gran % Nucleated RBC % Immature Gran # Nucleated RBCs # Immature Plt Fraction INR 1.3 PT Patient/Control Mix 14.0 ABG pH ABG pCO2 ABG pO2 ABG HCO3 ABG Total CO2 ABG O2 Saturation ABG Base Excess FiO2 Sodium Potassium 3.6 Chloride Carbon Dioxide Anion Gap BUN Creatinine GFR Calculation BUN/Creatinine Ratio Glucose POC Glucose Calculated Osmolality Calcium Phosphorus 5.1 H Magnesium Prealbumin 22.1 09/20/16 09/20/16 03:42 06:06 WBC RBC Hgb Hct MCV MCH MCHC RDW Plt Count MPV Neut % (Auto) Lymph % (Auto) [place] % (Auto) Eos % (Auto) Baso % (Auto) Neut # (Auto) Lymph # (Auto) [place] # (Auto) Eos # (Auto) Baso # (Auto) Immature Gran % Nucleated RBC % Immature Gran # Nucleated RBCs # Immature Plt Fraction INR PT Patient/Control Mix ABG pH 7.489 H ABG pCO2 42.4 ABG pO2 114.2 H ABG HCO3 31.5 H ABG Total CO2 32.8 H ABG O2 Saturation 98.2 ABG Base Excess 7.4 H FiO2 35.00 Sodium Potassium Chloride Carbon Dioxide Anion Gap BUN Creatinine GFR Calculation BUN/Creatinine Ratio Glucose POC Glucose 192 H Calculated Osmolality Calcium Phosphorus Magnesium Prealbumin
--- NOTE | 2016-09-20 08:06 | XRay Report ---
Portable chest Date: 09/20/2016 Clinical history: Ventilator Comparison: 09/19/2016 Technique: Portable AP sitting chest Findings: The heart is at the upper limits normal in size with prior median sternotomy. Stable supportive devices and left subclavian atrioventricular AICD. Stable atelectasis/infiltration at the right lung base, mediastinum, and osseous structures. Postoperative findings in the right shoulder. Impression: No significant change in the appearance of the chest when compared to previous exam. PROCEDURE INTERPRETED AT [facility] DEPARTMENT OF RADIOLOGY Final Report Signed by: Dr. Catherine Marquis
[2016-09-20] MEDS ORDERED: FUROSEMIDE 40 MG/4 ML VIAL IV SCH (09:00)
[2016-09-20] MEDS: POTASSIUM CHLORIDE 20 MEQ/15 ML UDCUP PO SCH ×3 (09:16→20:53)
[2016-09-20] MEDS: MEMANTINE 5 MG TABLET PO SCH (09:17)
[2016-09-20] MEDS: ISOSORBIDE DINITRATE 20 MG TABLET PO SCH ×3 (09:18→20:53)
[2016-09-20] MEDS: RAMIPRIL 5 MG CAPSULE PO SCH (09:18)
[2016-09-20] MEDS: LEVOFLOXACIN INJ 500 MG in PREMIX 1 EACH IV SCH (09:18)
[2016-09-20] MEDS: GLIMEPIRIDE 4 MG TABLET PO SCH ×2 (09:18→17:46)
[2016-09-20] MEDS: ASPIRIN EC 81 MG TABLET PO SCH (09:19)
[2016-09-20] MEDS: MAGNESIUM CHLORIDE 64 MG TABLET PO SCH (09:20)
[2016-09-20] MEDS: BUDESONIDE/FORMOTEROL 160-4.5 INHALER 6 GM INH SCH ×2 (09:20→22:59)
[2016-09-20] MEDS: CARVEDILOL 12.5 MG TABLET PO SCH ×2 (09:27→20:52)
[2016-09-20] MEDS: DILTIAZEM 30 MG TABLET PO SCH ×3 (09:27→20:53)
[2016-09-20] MEDS: ASPIRIN CHEW 81 MG TABLET PO SCH (09:28)
[2016-09-20] MEDS: MAGNESIUM OXIDE 400 MG TABLET PO SCH ×2 (09:28→20:54)
[2016-09-20] MEDS: methylPREDNISolone SOD SUC 40 MG/1 ML VIAL IV SCH ×3 (09:30→23:07)
[2016-09-20] MEDS: LINACLOTIDE 145 MCG CAPSULE PO SCH (09:30)
[2016-09-20 10:05] LABS: Pt O2 Delivery Device Ventilator
[2016-09-20 10:07] LABS: ABG Base Excess 6.1 MMOL/L (-2.5-2.5); ABG Oxygen Saturation 98.5 % (95-100); ABG PCO2 41.3 MM HG (35-48); ABG PH 7.474 (7.35-7.45); ABG TCO2 25.9 MMOL/L (23-27)
[2016-09-20] MEDS: FUROSEMIDE 40 MG/4 ML VIAL IV SCH (11:15)
--- NOTE | 2016-09-20 14:23 | Hospitalist Progress Note ---
Assessment and Plan (1) COPD (chronic obstructive pulmonary disease) Status: Acute Assessment and plan: Patient with acute COPD exacerbation requiring mechanical ventilation. Steroids and antibiotics started. Pulmonary following. Current Visit: Yes Qualifiers: COPD type: COPD with acute exacerbation Qualified Code(s): J44.1 - Chronic obstructive pulmonary disease with (acute) exacerbation (2) Ischemic cardiomyopathy Status: Chronic Assessment and plan: His cardiomyopathy has improved since his last cardiac cath in 2016 as evidenced by his new echocardiogram and ejection fraction of 45%. Cardiology is following. Echocardiogram results are as below. The overall ejection fraction appears to be approximately 45%. Diastolic parameters are equivocal. Tricuspid valve is normal there is mild tricuspid regurgitation peak velocity of 3.08 m/s corresponds with right ventricular cell pressure of 38 mmHg plus the right atrial pressure. Pulmonic valve is normal there is trivial pulmonic insufficiency. There is mild central jet of mitral regurgitation Current Visit: Yes (3) History of atrial fibrillation Status: Acute Assessment and plan: Rate controlled. Increase Cardizem. Current Visit: No (4) Acute exacerbation of CHF (congestive heart failure) Status: Acute Assessment and plan: Continue IV Lasix. Home medications reviewed and reconciled. Cardiology consult reviewed. Current Visit: Yes Qualifiers: Congestive heart failure type: systolic Qualified Code(s): I50.23 - Acute on chronic systolic (congestive) heart failure (5) Chronic anticoagulation Status: Chronic Assessment and plan: INR subtherapeutic. Continue Coumadin. Current Visit: Yes (6) Hypertension Status: Chronic Current Visit: Yes (7) Dyslipidemia Status: Chronic Current Visit: Yes (8) Diabetes Status: Chronic Current Visit: Yes Qualifiers: Diabetes mellitus type: type 2 Diabetes mellitus terminologist insulin use: with half-way use (9) Smoker Status: Chronic Current Visit: Yes Hospitalist: Subjective Interval history: Patient seen and examined. No acute events overnight. Case discussed with nursing staff. Labs reviewed. Exam - Constitutional Vitals: Period Temp Pulse Resp BP Sys/Gutiérrez Pulse Ox Last 24 Hr 96.1 F-98.2 F 26-94 18-30 64-149/43-95 95-100 Exam: Constitutional System: Mild distress. No tremulousness. Head: Normocephalic, atraumatic. Ears, Nose and Throat System: No pain or tenderness. No epistaxis or discharge. ET tube in place. Eyes System: Pupils equal, round, and reactive. Extraocular muscles intact. Neck: Supple, without adenopathy, No jugular venous distention. Respiratory System: Chest clear to auscultation at the bases. Cardiovascular System: Heart with regular rate and rhythm. No murmur. GI System: Abdomen soft, nontender. Normo active bowel sounds present. Musculoskeletal System: limbs with bilateral pedal edema. Full distal pulses. Neurological System: No discernable sensory deficit. No aphasia Psychiatric System: Conversation is rational Results - Labs CBC & BMP: 09/20/16 00:54 09/20/16 00:54 Lab Results: I have reviewed the past 24 hour labs - Diagnostic Findings Procedure: Chest x-ray: image reviewed by me, report reviewed by me
[2016-09-20] MEDS: ALUMINUM/MAGNES/SIMETH MAX STR 30 ML UDCUP PO PRN (15:17)
[2016-09-20] MEDS: WARFARIN 2.5 MG TABLET PO SCH (17:46)
[2016-09-20] MEDS: BACLOFEN 10 MG TABLET PO SCH (20:52)
[2016-09-20] MEDS: ATORVASTATIN 40 MG TABLET PO SCH (20:52)
[2016-09-20] MEDS: INSULIN GLARGINE 100 UNIT/ML SUBCUT SCH (20:55)
[2016-09-20] MEDS: oxyCODONE/ACETAMINOPHEN 5-325 MG TABLET PO PRN (20:55)
[2016-09-21] MEDS: ALBUTEROL/IPRATROPIUM 3 ML NEB RESP TX SCH ×4 (00:02→18:54)
[2016-09-21] MEDS: DEXMEDETOMIDINE 400 MCG in SODIUM CHLORIDE 0.9% 96 ML IV SCH ×2 (00:53→16:41)
[2016-09-21 03:21] LABS: ABG Base Excess 5.6 MMOL/L (-2.5-2.5); ABG HCO3 29.5 MMOL/L (20-26); ABG Oxygen Saturation 98.8 % (95-100); ABG PH 7.485 (7.35-7.45); ABG PO2 160.1 MM HG (80-95); ABG TCO2 30.7 MMOL/L (23-27); Allen Test Positive; Pt O2 Delivery Device Ventilator
[2016-09-21 04:32] LABS: Basophils % 0.1 % (0.0-0.8); Immature Granulocytes % 0.5 %; Immature Granulocytes Absolute 0.05 #; Lymphocytes # 1.4 10*3/uL (1.4-4.0); Lymphocytes % 12.3 % (21.2-54.2); Mean Corpuscular HGB Conc 32.6 GM/DL (32-36); Mean Corpuscular Hemoglobin 30 PG (27-34); Mean Corpuscular Volume 91.3 FL (87-102); Mean Platelet Volume 11.6 FL (9.6-12.0); Monocytes # 0.7 10*3/uL (0.11-0.8); Monocytes % 6.3 % (1.7-12.7); NRBC # 0.05 10*3/uL; Neutrophils # 8.9 10*3/uL (1.4-7.4); Neutrophils % 80.8 % (38.7-73.9); Platelet Count 124 T/CUMM (130-400); Red Blood Count 5.04 MC/CUMM (3.8-5.5); Red Cell Distribution Width 14.2 % (9.3-17.3); White Blood Count 11.1 T/CUMM (4-12)
[2016-09-21 05:43] LABS: ABG Base Excess 4.8 MMOL/L (-2.5-2.5); ABG HCO3 28.7 MMOL/L (20-26); ABG Oxygen Saturation 98.8 % (95-100); ABG PCO2 39.1 MM HG (35-48); ABG PH 7.472 (7.35-7.45); ABG TCO2 24.5 MMOL/L (23-27)
--- NOTE | 2016-09-21 05:58 | Pulmonology Progress Note ---
Pulmonary - PN: Subj Interval history: This 71-year-old black male is on the ventilator for acute on chronic respiratory failure. He has COPD with an exacerbation. May have some bronchopneumonia in the right base. Had an element of congestive heart failure. His ejection fraction is better than it was a couple years back. This is primarily exacerbation of his COPD. Today his lungs sound better. We will start doing CPAP's and wean as tolerated. 09/20/2016 patient tolerating CPAP. Will check mechanics and ABGs on CPAP and see if he is ready to be extubated. 09/21/2016 patient was a little bit tachypneic yesterday and mechanics were not quite up to guidelines for extubation so we have been waiting 1 more day. He has done well with CPAP. This morning his respiratory rate when he was asleep was 20. His mechanics look very good as to his ABGs on CPAP. We will extubate him. Patient is interactive and calm Exam (Progress Note) - Constitutional Vitals: Period Temp Pulse Resp BP Sys/Gutiérrez Pulse Ox Last 24 Hr 97.0 F-98.4 F 66-100 18-30 88-147/49-89 96-100 Exam: Patient alert and calm. Vital signs normal. Pupils react to light. Orotracheal tube in place. Neck is supple. Chest reveals prolonged expiratory phase with no expiratory wheezes. Heart normal rate rhythm no murmurs. Abdomen soft no masses. Bowel sounds present. Extremities no clubbing cyanosis edema. Results - Labs CBC & BMP: 09/21/16 03:50 09/20/16 00:54 Lab Results: I have reviewed the past 24 hour labs - Diagnostic Findings Procedure: Chest x-ray: image reviewed by me (Minimal right basilar infiltrate. No signs of heart failure) Assessment and Plan (1) COPD with exacerbation Status: Acute Assessment and plan: Patient on ventilator. Getting steroids. Will reduce the dose. Needs antibiotics. Continue bronchodilators. His PCO2 is elevated. Will add Diamox. Consider Aminophyllin if no improvement in 24 hours 09/19/2016 lungs sound much better today. Still has elevated PCO2. Will start on CPAP trials. Change sedation to Precedex to keep him more alert. 09/20/2016 lungs sound better. Tolerating CPAP. ABGs improved. We will see if we can get him weaned. PCO2 is down to 42. 09/21/2016 no wheezing. ABGs much improved. Normal PCO2 on CPAP. Will extubate. Continuing steroids antibiotics and bronchodilators. Current Visit: No (2) Atrial fibrillation Status: Acute Assessment and plan: Controlled rate. On anticoagulants. INR is subtherapeutic. 09/19/2016 rate controlled. 09/20/2016 heart rate is controlled 09/21/2016 heart rate continues to be controlled. Current Visit: Yes Qualifiers: Atrial fibrillation type: chronic Qualified Code(s): I48.2 - Chronic atrial fibrillation (3) Chronic anticoagulation Status: Chronic Assessment and plan: INR subtherapeutic. Defer to cardiology. 09/20/2016 INR still only 1.3. 09/21/2016 INR pending. Current Visit: Yes (4) Ischemic cardiomyopathy Status: Chronic Assessment and plan: Reportedly has ejection fraction 25% 5 years ago. Repeat echo pending. Cardiology following. 09/19/2016 ejection fraction 45% on yesterday's echo. This represents marked improvement. 09/20/2016 congestive heart failure was relatively mild 09/21/2016 has a mild cardiomyopathy. Primary cause of respiratory failure COPD Current Visit: Yes (5) Acute and chronic respiratory failure Status: Acute Assessment and plan: Has PCO2 of 59 on the ventilator with normal pH. This suggests that he has a chronically elevated PCO2. Will make it somewhat difficult to wean. Adding Diamox. Consider Aminophyllin. 09/19/2016 PCO2 is down to 49 this morning. Will not start Aminophyllin. 09/20/2016 COPD exacerbation is the primary cause of her respiratory failure. PCO2 is down to normal. Will check mechanics and blood gases on CPAP and see if we can get him extubated today. 09/21/2016 ABGs look good. Mechanics look good. Will extubate this morning. Current Visit: Yes Qualifiers: Respiratory failure complication: hypoxia Qualified Code(s): J96.21 - Acute and chronic respiratory failure with hypoxia (6) Smoker Status: Chronic Assessment and plan: Will need further discussion of smoking cessation once he is off the vent. Current Visit: Yes
[2016-09-21] MEDS: INSULIN REGULAR 100 UNIT/ML SUBCUT SCH ×4 (06:45→23:46)
--- NOTE | 2016-09-21 07:15 | XRay Report ---
XR chest 1V portable Indication: Ventilator patient Comparison: 20 September 2016 Findings: The heart and mediastinum are stable in size and configuration cardiac surgery changes. Pacemaker device is unchanged in position. The lines and tubes are unchanged in position. The pulmonary vascularity is normal in caliber. No lung infiltrates, effusions, pneumothorax or other abnormality is demonstrated. Impression: No significant change PROCEDURE INTERPRETED AT [facility] DEPARTMENT OF RADIOLOGY Final Report Signed by: Dr. Anatoly Ambrocio
[2016-09-21 07:31] LABS: ABG Base Excess 4.8 MMOL/L (-2.5-2.5); ABG HCO3 28.7 MMOL/L (20-26); ABG Oxygen Saturation 96.7 % (95-100); ABG PCO2 39.5 MM HG (35-48); ABG PO2 87.5 MM HG (80-95); ABG TCO2 24.5 MMOL/L (23-27)
--- NOTE | 2016-09-21 07:55 | Cardiology Progress Note ---
Assessment and Plan (1) COPD with exacerbation Status: Acute Assessment and plan: Acute on chronic exacerbation. He is extubated and no wheezing this morning Current Visit: No (2) Atrial fibrillation Status: Acute Assessment and plan: This is chronic. Continue to adjust medicines. Current Visit: Yes Qualifiers: Atrial fibrillation type: chronic Qualified Code(s): I48.2 - Chronic atrial fibrillation (3) Acute and chronic respiratory failure Status: Acute Current Visit: Yes Qualifiers: Respiratory failure complication: hypoxia Qualified Code(s): J96.21 - Acute and chronic respiratory failure with hypoxia (4) Ischemic cardiomyopathy Status: Chronic Assessment and plan: EF is improved continue medical therapy Current Visit: Yes Cardiology - PN: Subj Interval history: Mr. Kim has been extubated. He is calm. He is not oriented. I think this is at or near his baseline. His chest x-ray looks good. There is no effusion no evidence of heart failure. He actually has no complaint. Vital signs are stable. Exam (Progress Note) - Constitutional Vitals: Period Temp Pulse Resp BP Sys/Gutiérrez Pulse Ox Last 24 Hr 97.0 F-98.4 F 81-100 18-30 88-147/49-89 96-100 General appearance: normal weight - Head Head exam: Present: normal inspection - Neck Neck exam: Present: normal inspection - Respiratory Respiratory exam: Present: other (He has some upper airway or tracheal noise I do not hear wheezing this morning) - Cardiovascular Cardiovascular exam: Present: irregular rhythm (His rate is controlled) - GI/Abdominal GI/Abdominal exam: Present: normal bowel sounds - Back Exam Back exam: Present: normal inspection - Neurological Exam Neurological exam: Present: alert - Psychiatric Psychiatric exam: Present: flat affect - Skin Skin exam: Present: normal color, warm, dry Result/EKG - Labs CBC & BMP: 09/21/16 03:50 09/20/16 00:54 Labs: Laboratory Results - last 24 hr 09/20/16 09/20/16 09/20/16 09:48 10:07 11:21 WBC RBC Hgb Hct MCV MCH MCHC RDW Plt Count MPV Neut % (Auto) Lymph % (Auto) [place] % (Auto) Eos % (Auto) Baso % (Auto) Neut # (Auto) Lymph # (Auto) [place] # (Auto) Eos # (Auto) Baso # (Auto) Immature Gran % Nucleated RBC % Immature Gran # Nucleated RBCs # ABG pH 7.474 H ABG pCO2 41.3 ABG pO2 120.0 H ABG HCO3 30.0 H ABG Total CO2 25.9 ABG O2 Saturation 98.5 ABG Base Excess 6.1 H FiO2 35.00 POC Glucose 183 H 181 H 09/20/16 09/20/16 09/20/16 13:25 17:51 23:11 WBC RBC Hgb Hct MCV MCH MCHC RDW Plt Count MPV Neut % (Auto) Lymph % (Auto) [place] % (Auto) Eos % (Auto) Baso % (Auto) Neut # (Auto) Lymph # (Auto) [place] # (Auto) Eos # (Auto) Baso # (Auto) Immature Gran % Nucleated RBC % Immature Gran # Nucleated RBCs # ABG pH ABG pCO2 ABG pO2 ABG HCO3 ABG Total CO2 ABG O2 Saturation ABG Base Excess FiO2 POC Glucose 184 H 204 H 200 H 09/21/16 09/21/16 09/21/16 03:10 03:50 05:34 WBC 11.1 RBC 5.04 Hgb 15.0 Hct 46.0 MCV 91.3 MCH 30 MCHC 32.6 RDW 14.2 Plt Count 124 L MPV 11.6 Neut % (Auto) 80.8 H Lymph % (Auto) 12.3 L [place] % (Auto) 6.3 Eos % (Auto) 0.0 Baso % (Auto) 0.1 Neut # (Auto) 8.9 H Lymph # (Auto) 1.4 [place] # (Auto) 0.7 Eos # (Auto) 0.0 Baso # (Auto) 0.0 Immature Gran % 0.5 Nucleated RBC % 0.5 Immature Gran # 0.05 Nucleated RBCs # 0.05 ABG pH 7.485 H 7.472 H ABG pCO2 40.0 39.1 ABG pO2 160.1 H 124.0 H ABG HCO3 29.5 H 28.7 H ABG Total CO2 30.7 H 24.5 ABG O2 Saturation 98.8 98.8 ABG Base Excess 5.6 H 4.8 H FiO2 35.00 POC Glucose 09/21/16 09/21/16 05:45 07:20 WBC RBC Hgb Hct MCV MCH MCHC RDW Plt Count MPV Neut % (Auto) Lymph % (Auto) [place] % (Auto) Eos % (Auto) Baso % (Auto) Neut # (Auto) Lymph # (Auto) [place] # (Auto) Eos # (Auto) Baso # (Auto) Immature Gran % Nucleated RBC % Immature Gran # Nucleated RBCs # ABG pH 7.470 H ABG pCO2 39.5 ABG pO2 87.5 ABG HCO3 28.7 H ABG Total CO2 24.5 ABG O2 Saturation 96.7 ABG Base Excess 4.8 H FiO2 POC Glucose 202 H
[2016-09-21 08:10] LABS: Magnesium 2.8 MG/DL (1.8-2.4); Osmolality,Calculated 310.7 MOS/KG (273-304); Potassium 3.3 MMOL/L (3.5-5.1)
[2016-09-21] MEDS ORDERED: DILTIAZEM CD 120 MG CAPSULE PO SCH (09:00)
[2016-09-21 09:10] LABS: INR 1.3; PT Patient Result 14.4 SECS
--- NOTE | 2016-09-21 09:58 | Hospitalist Progress Note ---
Assessment and Plan (1) COPD with exacerbation Status: Acute Assessment and plan: Decompensation requiring elective intubation and mechanical ventilation. Current Visit: No (2) Ischemic cardiomyopathy Status: Chronic Assessment and plan: Previous aortocoronary bypass grafting with reduced left ventricular systolic performance ICD in place. Chronic atrial fibrillation. Current Visit: Yes Hospitalist: Subjective Interval history: 71-year-old male with cardiomyopathy ( LVEF 45% with mild pulmonary hypertension ) and chronic obstructive pulmonary disease; who presented with increasing shortness of breath. He had initially been resistant to intubation but developed significant fatigue and on the underwent intubation and introduction of mechanical ventilation earlier today he has been extubated after 3-1/2 days of ventilation. He is awake and alert I am not familiar with his baseline. His vital signs overnight and post extubation have been stable. Exam - Constitutional Vitals: Period Temp Pulse Resp BP Sys/Gutiérrez Pulse Ox Last 24 Hr 97.3 F-98.4 F 81-100 18-30 88-147/49-89 96-100 General appearance: normal weight - Respiratory Respiratory exam: Present: wheezes. Absent: rales, rhonchi - Cardiovascular Cardiovascular exam: Present: irregular rhythm (Chronic atrial fibrillation) - Extremities Exam Extremities exam: Absent: edema - Neurological Exam Neurological exam: Present: alert Results - Labs CBC & BMP: 09/21/16 03:50 09/21/16 06:57 Labs: PH 7.47 PCO2 39 PO2 124 (prior to extubation) - Diagnostic Findings Procedure: Chest x-ray: image reviewed by me (ICD in place lung sanchez are relatively clear.)
[2016-09-21] MEDS: ISOSORBIDE DINITRATE 20 MG TABLET PO SCH ×3 (11:07→20:11)
[2016-09-21] MEDS: ASPIRIN CHEW 81 MG TABLET PO SCH (11:07)
[2016-09-21] MEDS: DILTIAZEM 30 MG TABLET PO SCH ×2 (11:08→20:10)
[2016-09-21] MEDS: MEMANTINE 5 MG TABLET PO SCH (11:08)
[2016-09-21] MEDS: RAMIPRIL 5 MG CAPSULE PO SCH (11:08)
[2016-09-21] MEDS: CARVEDILOL 12.5 MG TABLET PO SCH ×2 (11:08→20:11)
[2016-09-21] MEDS: LEVOFLOXACIN INJ 500 MG in PREMIX 1 EACH IV SCH (11:09)
[2016-09-21] MEDS: FUROSEMIDE 40 MG TABLET PO SCH (11:09)
[2016-09-21] MEDS: methylPREDNISolone SOD SUC 40 MG/1 ML VIAL IV SCH ×3 (11:10→23:47)
[2016-09-21] MEDS: LINACLOTIDE 145 MCG CAPSULE PO SCH (11:10)
[2016-09-21] MEDS: MAGNESIUM OXIDE 400 MG TABLET PO SCH ×2 (11:11→20:11)
[2016-09-21] MEDS: POTASSIUM CHLORIDE 20 MEQ/15 ML UDCUP PO SCH ×3 (11:11→20:11)
[2016-09-21] MEDS: GLIMEPIRIDE 4 MG TABLET PO SCH ×2 (11:12→17:26)
[2016-09-21] MEDS: BUDESONIDE/FORMOTEROL 160-4.5 INHALER 6 GM INH SCH ×2 (11:12→20:18)
[2016-09-21] MEDS: WARFARIN 5 MG TABLET PO SCH (18:32)
[2016-09-21] MEDS: BACLOFEN 10 MG TABLET PO SCH (20:11)
[2016-09-21] MEDS: INSULIN GLARGINE 100 UNIT/ML SUBCUT SCH (20:11)
[2016-09-21] MEDS: ATORVASTATIN 40 MG TABLET PO SCH (20:11)
[2016-09-22] MEDS: ALBUTEROL/IPRATROPIUM 3 ML NEB RESP TX SCH ×4 (00:18→19:49)
[2016-09-22] MEDS: INSULIN REGULAR 100 UNIT/ML SUBCUT SCH ×3 (05:31→18:19)
[2016-09-22 05:55] LABS: Basophils % 0.1 % (0.0-0.8); Hematocrit 46.2 VOL% (42.0-52.0); Hemoglobin 15.4 GM/DL (14.0-18.0); Immature Granulocytes % 0.3 %; Immature Granulocytes Absolute 0.04 #; Mean Corpuscular HGB Conc 33.3 GM/DL (32-36); Mean Corpuscular Hemoglobin 30 PG (27-34); Mean Corpuscular Volume 89.9 FL (87-102); Mean Platelet Volume 11.1 FL (9.6-12.0); Monocytes # 0.5 10*3/uL (0.11-0.8); Monocytes % 4.4 % (1.7-12.7); Neutrophils # 9.1 10*3/uL (1.4-7.4); Neutrophils % 78.2 % (38.7-73.9); Platelet Count 158 T/CUMM (130-400); Red Blood Count 5.14 MC/CUMM (3.8-5.5); Red Cell Distribution Width 13.2 % (9.3-17.3); White Blood Count 11.6 T/CUMM (4-12)
[2016-09-22 06:04] LABS: INR 1.3; PT Patient Result 14.5 SECS
[2016-09-22 06:15] LABS: Calcium 9.3 MG/DL (8.5-10.1); Magnesium 2.7 MG/DL (1.8-2.4); Osmolality,Calculated 289.5 MOS/KG (273-304); Potassium 3.4 MMOL/L (3.5-5.1)
--- NOTE | 2016-09-22 06:38 | Cardiology Progress Note ---
Assessment and Plan (1) COPD with exacerbation Status: Acute Assessment and plan: Acute on chronic exacerbation. He is extubated anticipate transfer to a floor soon. Current Visit: No (2) Atrial fibrillation Status: Acute Assessment and plan: This is chronic. Continue to adjust medicines. Increase warfarin. Would like to decrease and discontinue Cardizem as soon as possible. Current Visit: Yes Qualifiers: Atrial fibrillation type: chronic Qualified Code(s): I48.2 - Chronic atrial fibrillation (3) Acute and chronic respiratory failure Status: Acute Current Visit: Yes Qualifiers: Respiratory failure complication: hypoxia Qualified Code(s): J96.21 - Acute and chronic respiratory failure with hypoxia (4) Ischemic cardiomyopathy Status: Chronic Assessment and plan: EF is improved continue medical therapy Current Visit: Yes Cardiology - PN: Subj Interval history: Mr. Kim is not really conversant today. He is doing well off the ventilator. He continues to have a significant negative fluid balance and is hypokalemic. His INR remains subtherapeutic and I will increase his Coumadin. He is on the "protocol" for potassium replacement but has not gone up significantly. His magnesium is also being repleted orally. His heart rate is well controlled his vital signs are stable. I would like to discontinue his Cardizem but I think at this time we should leave it in place to prevent A. fib with RVR. I think the RVR with an rate was driven by his COPD which appears to be under better control at this time. He is on all the appropriate heart failure medicines. Exam (Progress Note) - Constitutional Vitals: Period Temp Pulse Resp BP Sys/Gutiérrez Pulse Ox Last 24 Hr 97.0 F-98.6 F 64-91 16-26 99-136/66-95 92-100 General appearance: normal weight - Eye Eye exam: Present: EOMI - Respiratory Respiratory exam: Present: rhonchi. Absent: wheezes - Cardiovascular Cardiovascular exam: Present: irregular rhythm (PMI is within normal limits) - GI/Abdominal GI/Abdominal exam: Present: normal bowel sounds - Extremities Exam Extremities exam: Absent: edema - Neurological Exam Neurological exam: Present: alert. Absent: oriented X3 - Psychiatric Psychiatric exam: Present: flat affect - Skin Skin exam: Present: normal color, warm, dry Result/EKG - Labs CBC & BMP: 09/22/16 05:41 09/22/16 05:41 Labs: Laboratory Results - last 24 hr 09/20/16 09/21/16 09/21/16 23:11 06:57 06:57 WBC RBC Hgb Hct MCV MCH MCHC RDW Plt Count MPV Neut % (Auto) Lymph % (Auto) [place] % (Auto) Eos % (Auto) Baso % (Auto) Neut # (Auto) Lymph # (Auto) [place] # (Auto) Eos # (Auto) Baso # (Auto) Immature Gran % Nucleated RBC % Immature Gran # Nucleated RBCs # INR 1.3 PT Patient/Control Mix 14.4 ABG pH ABG pCO2 ABG pO2 ABG HCO3 ABG Total CO2 ABG O2 Saturation ABG Base Excess Sodium 145 Potassium 3.3 L Chloride 105 Carbon Dioxide 30 Anion Gap 13.3 BUN 60 H Creatinine 1.50 H GFR Calculation 66 BUN/Creatinine Ratio 40.00 H Glucose 212 H POC Glucose 200 H Calculated Osmolality 310.7 H Calcium 9.0 Magnesium 2.8 H 09/21/16 09/21/16 09/21/16 07:20 11:55 18:17 WBC RBC Hgb Hct MCV MCH MCHC RDW Plt Count MPV Neut % (Auto) Lymph % (Auto) [place] % (Auto) Eos % (Auto) Baso % (Auto) Neut # (Auto) Lymph # (Auto) [place] # (Auto) Eos # (Auto) Baso # (Auto) Immature Gran % Nucleated RBC % Immature Gran # Nucleated RBCs # INR PT Patient/Control Mix ABG pH 7.470 H ABG pCO2 39.5 ABG pO2 87.5 ABG HCO3 28.7 H ABG Total CO2 24.5 ABG O2 Saturation 96.7 ABG Base Excess 4.8 H Sodium Potassium Chloride Carbon Dioxide Anion Gap BUN Creatinine GFR Calculation BUN/Creatinine Ratio Glucose POC Glucose 259 H 396 H Calculated Osmolality Calcium Magnesium 09/21/16 09/22/16 09/22/16 23:26 05:32 05:41 WBC RBC Hgb Hct MCV MCH MCHC RDW Plt Count MPV Neut % (Auto) Lymph % (Auto) [place] % (Auto) Eos % (Auto) Baso % (Auto) Neut # (Auto) Lymph # (Auto) [place] # (Auto) Eos # (Auto) Baso # (Auto) Immature Gran % Nucleated RBC % Immature Gran # Nucleated RBCs # INR 1.3 PT Patient/Control Mix 14.5 ABG pH ABG pCO2 ABG pO2 ABG HCO3 ABG Total CO2 ABG O2 Saturation ABG Base Excess Sodium Potassium Chloride Carbon Dioxide Anion Gap BUN Creatinine GFR Calculation BUN/Creatinine Ratio Glucose POC Glucose 263 H 140 H Calculated Osmolality Calcium Magnesium 09/22/16 09/22/16 05:41 05:41 WBC 11.6 RBC 5.14 Hgb 15.4 Hct 46.2 MCV 89.9 MCH 30 MCHC 33.3 RDW 13.2 Plt Count 158 D MPV 11.1 Neut % (Auto) 78.2 H Lymph % (Auto) 17.0 L [place] % (Auto) 4.4 Eos % (Auto) 0.0 Baso % (Auto) 0.1 Neut # (Auto) 9.1 H Lymph # (Auto) 2.0 [place] # (Auto) 0.5 Eos # (Auto) 0.0 Baso # (Auto) 0.0 Immature Gran % 0.3 Nucleated RBC % 0.0 Immature Gran # 0.04 Nucleated RBCs # 0.00 INR PT Patient/Control Mix ABG pH ABG pCO2 ABG pO2 ABG HCO3 ABG Total CO2 ABG O2 Saturation ABG Base Excess Sodium 139 Potassium 3.4 L Chloride 103 Carbon Dioxide 29 Anion Gap 10.4 BUN 47 H D Creatinine 1.20 GFR Calculation 87 BUN/Creatinine Ratio 39.00 H Glucose 113 H POC Glucose Calculated Osmolality 289.5 Calcium 9.3 Magnesium 2.7 H
[2016-09-22] MEDS: POTASSIUM CHLORIDE RIDER 10 MEQ in PREMIX 1 EACH IV PRN (06:41)
--- NOTE | 2016-09-22 07:40 | Pulmonology Progress Note ---
Pulmonary - PN: Subj Interval history: The patient is a 71-year-old black man that has significant COPD. He came in with respiratory failure and has been on the ventilator for a few days. Yesterday he was extubated and has done reasonably well. He did use his BiPAP during the night. He has been reasonably comfortable. The patient does have a history of atrial fibrillation. He has an ischemic cardiomyopathy with ejection fraction of 45%. His recent x-ray did not show any congestive heart failure. The patient does not want to say much this morning but apparently had a fairly good night. He did not have any significant distress during the night. He had been on 2 L of oxygen after extubation. He can probably go to a regular room today. Exam (Progress Note) - Constitutional Vitals: Period Temp Pulse Resp BP Sys/Gutiérrez Pulse Ox Last 24 Hr 97.0 F-98.6 F 64-91 16-26 99-136/66-95 92-100 General appearance: normal weight, no acute distress (The patient is resting comfortably in bed.) - Head Head exam: Present: normal inspection, normocephalic - Eye Eye exam: Present: EOMI. Absent: scleral icterus Pupils: Present: JEANINE - ENT ENT exam: Present: normal exam - Neck Neck exam: Present: normal inspection. Absent: lymphadenopathy, thyromegaly - Respiratory Respiratory exam: Present: prolonged expiratory phase, rhonchi (The patient has minimal rhonchi bilaterally.). Absent: wheezes - Cardiovascular Cardiovascular exam: Present: irregular rhythm. Absent: gallop, systolic murmur , tachycardia - GI/Abdominal GI/Abdominal exam: Present: normal bowel sounds, soft. Absent: organomegaly, tenderness - Extremities Exam Extremities exam: Absent: calf tenderness, edema - Neurological Exam Neurological exam: Present: other (The patient is still asleep and lethargic this morning.) - Psychiatric Psychiatric exam: Absent: agitated, anxious - Skin Skin exam: Present: warm, dry Results - Labs CBC & BMP: 09/22/16 05:41 09/22/16 05:41 - Diagnostic Findings Procedure: Chest x-ray: image reviewed by me, report reviewed by me (Chest x- ray yesterday was clear.) Assessment and Plan (1) COPD with exacerbation Status: Acute Assessment and plan: Patient comes in with a COPD exacerbation and has been on the ventilator. He was extubated yesterday and is doing fairly well. Will continue with bronchodilator therapy. Current Visit: No (2) Atrial fibrillation Status: Acute Assessment and plan: Patient has controlled atrial fibrillation with PVCs and is fairly stable. Current Visit: Yes Qualifiers: Atrial fibrillation type: chronic Qualified Code(s): I48.2 - Chronic atrial fibrillation (3) Hypertension Status: Chronic Assessment and plan: His blood pressure has been under reasonable control. Current Visit: Yes (4) Diabetes Status: Chronic Assessment and plan: The patient's glucose is 113 this morning. Current Visit: Yes Qualifiers: Diabetes mellitus type: type 2 Diabetes mellitus intermediate insulin use: with terminal operator use (5) Smoker Status: Chronic Assessment and plan: The patient certainly needs to stop smoking. Current Visit: Yes (6) Ischemic cardiomyopathy Status: Chronic Assessment and plan: The patient does not have any signs of heart failure now and is being followed by cardiology. Current Visit: Yes (7) Acute and chronic respiratory failure Status: Acute Assessment and plan: The patient was on the ventilator with respiratory failure but is doing better now. He is breathing comfortably at present time. Current Visit: Yes Qualifiers: Respiratory failure complication: hypoxia Qualified Code(s): J96.21 - Acute and chronic respiratory failure with hypoxia
--- NOTE | 2016-09-22 08:36 | Hospitalist Progress Note ---
Assessment and Plan - Time spent with patient Time spent with patient: Less than 30 minutes (1) COPD with exacerbation Status: Acute Assessment and plan: Patient had COPD exacerbation with acute on chronic respiratory failure requiring ventilatory support. He is now extubated and will plan transfer to the floor later today. Continue current medical regimen. Pulmonary continues to follow. Current Visit: No (2) Atrial fibrillation Status: Chronic Assessment and plan: Patient has chronic atrial fibrillation periods medications are being adjusted by cardiology. Current Visit: Yes Qualifiers: Atrial fibrillation type: chronic Qualified Code(s): I48.2 - Chronic atrial fibrillation (3) Hypertension Status: Chronic Assessment and plan: He is hemodynamically stable at this time. Continue his current medical regimen. Current Visit: Yes (4) Diabetes Status: Chronic Assessment and plan: Continuing to follow blood sugars and will continue current regimen as blood sugars are well controlled this morning. Current Visit: Yes Qualifiers: Diabetes mellitus type: type 2 Diabetes mellitus fci insulin use: with outlet manager use (5) Smoker Status: Chronic Assessment and plan: Smoking cessation discussion has continued. Current Visit: Yes (6) Ischemic cardiomyopathy Status: Chronic Assessment and plan: Patient has ischemic cardiomyopathy which is compensated at this time.. Continue medical therapy. Current Visit: Yes (7) Acute and chronic respiratory failure Status: Acute Assessment and plan: As noted above, patient had acute on chronic respiratory failure requiring ventilatory support. He is now extubated and breathing comfortably on nasal cannula. Current Visit: Yes Qualifiers: Respiratory failure complication: hypoxia Qualified Code(s): J96.21 - Acute and chronic respiratory failure with hypoxia Hospitalist: Subjective Interval history: Patient examined and chart reviewed. 71-year-old male with cardiomyopathy with left ventricular ejection fraction estimated at 45% with mild pulmonary hypertension who also has COPD and presented with increasing shortness of breath. He was initially resistant to intubation but developed significant fatigue he was intubated and ventilated and is now been extubated. He denies any complaints at this time and is being followed by cardiology as well as pulmonary. He denies any chest pain, abdominal pain, nausea, vomiting. He states he is tolerating his diet. Exam - Constitutional Vitals: Period Temp Pulse Resp BP Sys/Gutiérrez Pulse Ox Last 24 Hr 97.0 F-98.6 F 64-91 16-25 99-136/66-95 92-100 General appearance: no acute distress - Head Head exam: Present: normocephalic, atraumatic - Eye Eye exam: Present: EOMI Pupils: Present: JEANINE - ENT ENT exam: Present: normal oropharynx - Neck Neck exam: Present: normal inspection - Respiratory Respiratory exam: Present: rhonchi - Cardiovascular Cardiovascular exam: Present: irregular rhythm. Absent: tachycardia - GI/Abdominal GI/Abdominal exam: Present: normal bowel sounds, soft. Absent: tenderness - Extremities Exam Extremities exam: Absent: calf tenderness, edema - Back Exam Back exam: Present: normal inspection - Neurological Exam Neurological exam: Present: alert, oriented X3, CN II-XII intact. Absent: motor sensory deficit - Skin Skin exam: Present: warm, dry. Absent: rash Results - Labs CBC & BMP: 09/22/16 05:41 09/22/16 05:41 Lab Results: I have reviewed the past 24 hour labs
[2016-09-22] MEDS: methylPREDNISolone SOD SUC 40 MG/1 ML VIAL IV SCH ×2 (08:48→15:34)
[2016-09-22] MEDS: LEVOFLOXACIN INJ 500 MG in PREMIX 1 EACH IV SCH (08:48)
[2016-09-22] MEDS: MEMANTINE 5 MG TABLET PO SCH (08:49)
[2016-09-22] MEDS: ISOSORBIDE DINITRATE 20 MG TABLET PO SCH ×3 (08:49→21:43)
[2016-09-22] MEDS: CARVEDILOL 12.5 MG TABLET PO SCH ×2 (08:49→21:43)
[2016-09-22] MEDS: ASPIRIN CHEW 81 MG TABLET PO SCH (08:49)
[2016-09-22] MEDS: GLIMEPIRIDE 4 MG TABLET PO SCH ×2 (08:49→17:36)
[2016-09-22] MEDS: DILTIAZEM 30 MG TABLET PO SCH ×2 (08:50→21:43)
[2016-09-22] MEDS: RAMIPRIL 5 MG CAPSULE PO SCH (08:50)
[2016-09-22] MEDS: FUROSEMIDE 40 MG TABLET PO SCH (08:50)
[2016-09-22] MEDS: LINACLOTIDE 145 MCG CAPSULE PO SCH (08:51)
[2016-09-22] MEDS: POTASSIUM CHLORIDE 20 MEQ/15 ML UDCUP PO SCH ×3 (08:51→21:44)
[2016-09-22] MEDS: MAGNESIUM OXIDE 400 MG TABLET PO SCH ×2 (08:51→21:43)
[2016-09-22] MEDS: BUDESONIDE/FORMOTEROL 160-4.5 INHALER 6 GM INH SCH ×2 (08:52→21:57)
[2016-09-22] MEDS: PANTOPRAZOLE 20 MG TABLET PO SCH ×2 (11:54→21:42)
[2016-09-22] MEDS: GABAPENTIN 300 MG CAPSULE PO SCH ×2 (11:54→21:43)
[2016-09-22] MEDS: oxyCODONE/ACETAMINOPHEN 5-325 MG TABLET PO PRN (15:48)
[2016-09-22] MEDS: WARFARIN 5 MG TABLET PO SCH (17:36)
[2016-09-22] MEDS: INSULIN GLARGINE 100 UNIT/ML SUBCUT SCH (21:42)
[2016-09-22] MEDS: BACLOFEN 10 MG TABLET PO SCH (21:43)
[2016-09-22] MEDS: ATORVASTATIN 40 MG TABLET PO SCH (21:43)
[2016-09-23] MEDS: INSULIN REGULAR 100 UNIT/ML SUBCUT SCH ×4 (00:14→18:13)
[2016-09-23] MEDS: methylPREDNISolone SOD SUC 40 MG/1 ML VIAL IV SCH ×2 (00:15→08:16)
[2016-09-23] MEDS: ALBUTEROL/IPRATROPIUM 3 ML NEB RESP TX SCH ×4 (01:22→20:36)
[2016-09-23 03:30] LABS: Basophils % 0.1 % (0.0-0.8); Hematocrit 38.9 VOL% (42.0-52.0); Hemoglobin 13.1 GM/DL (14.0-18.0); Immature Granulocytes % 0.4 %; Immature Granulocytes Absolute 0.05 #; Lymphocytes # 1.5 10*3/uL (1.4-4.0); Lymphocytes % 12.6 % (21.2-54.2); Mean Corpuscular HGB Conc 33.7 GM/DL (32-36); Mean Corpuscular Hemoglobin 29 PG (27-34); Mean Corpuscular Volume 86.6 FL (87-102); Mean Platelet Volume 11.5 FL (9.6-12.0); Monocytes # 0.6 10*3/uL (0.11-0.8); Monocytes % 4.7 % (1.7-12.7); Neutrophils # 9.9 10*3/uL (1.4-7.4); Neutrophils % 82.2 % (38.7-73.9); Platelet Count 154 T/CUMM (130-400); Red Blood Count 4.49 MC/CUMM (3.8-5.5)
[2016-09-23 03:39] LABS: INR 1.7; PT Patient Result 18.1 SECS
[2016-09-23 04:07] LABS: Calcium 8.4 MG/DL (8.5-10.1); Magnesium 2.3 MG/DL (1.8-2.4); Osmolality,Calculated 290.8 MOS/KG (273-304); Potassium 3.5 MMOL/L (3.5-5.1)
--- NOTE | 2016-09-23 07:40 | Hospitalist Progress Note ---
Assessment and Plan - Time spent with patient Time spent with patient: Less than 30 minutes (1) COPD with exacerbation Status: Acute Assessment and plan: 09/22/16: Patient had COPD exacerbation with acute on chronic respiratory failure requiring ventilatory support. He is now extubated and will plan transfer to the floor later today. Continue current medical regimen. Pulmonary continues to follow. 09/23/16: Patient has been on the floor since yesterday. He has no significant dyspnea. He is oxygenating well but has continued scattered wheeze. I will begin to taper his IV Solu-Medrol and begin converting to oral medications in preparation for discharge in the next 24-48 hours. Current Visit: No (2) Atrial fibrillation Status: Chronic Assessment and plan: Patient has chronic atrial fibrillation periods medications are being adjusted by cardiology. Current Visit: Yes Qualifiers: Atrial fibrillation type: chronic Qualified Code(s): I48.2 - Chronic atrial fibrillation (3) Hypertension Status: Chronic Assessment and plan: He is hemodynamically stable at this time. Continue his current medical regimen. Current Visit: Yes (4) Diabetes Status: Chronic Assessment and plan: 09/22/16: Continuing to follow blood sugars and will continue current regimen as blood sugars are well controlled this morning. 09/23/16: Blood sugars are slightly elevated this is likely exacerbated by his IV corticosteroids which we will begin to taper. We will continue his current regimen with Accu-Cheks and sliding scale. Current Visit: Yes Qualifiers: Diabetes mellitus type: type 2 Diabetes mellitus penitentiary insulin use: with penitentiary use (5) Smoker Status: Chronic Assessment and plan: Smoking cessation discussion has continued. Current Visit: Yes (6) Ischemic cardiomyopathy Status: Chronic Assessment and plan: Patient has ischemic cardiomyopathy which is compensated at this time.. Continue medical therapy. Current Visit: Yes (7) Acute and chronic respiratory failure Status: Acute Assessment and plan: As noted above, patient had acute on chronic respiratory failure requiring ventilatory support. He is now extubated and breathing comfortably on nasal cannula. Current Visit: Yes Qualifiers: Respiratory failure complication: hypoxia Qualified Code(s): J96.21 - Acute and chronic respiratory failure with hypoxia Hospitalist: Subjective Interval history: Mr. Kim is now on the floor. He states he slept well and continues to be fairly drowsy this morning. He states he has not been out of bed at this point. His diet is being tolerated and appetite okay. He denies any chest pain or increasing shortness of breath. Exam - Constitutional Vitals: Period Temp Pulse Resp BP Sys/Gutiérrez Pulse Ox Last 24 Hr 96.7 F-98.9 F 69-85 16-27 101-155/64-83 88-100 General appearance: no acute distress - Head Head exam: Present: normocephalic, atraumatic - Eye Eye exam: Present: EOMI Pupils: Present: JEANINE - ENT ENT exam: Present: normal exam - Neck Neck exam: Present: normal inspection - Respiratory Respiratory exam: Present: wheezes (He has a few scattered wheezes more so on the left) - Cardiovascular Cardiovascular exam: Present: irregular rhythm - GI/Abdominal GI/Abdominal exam: Present: normal bowel sounds, soft. Absent: mass, tenderness - Extremities Exam Extremities exam: Absent: calf tenderness, edema - Neurological Exam Neurological exam: Present: alert, oriented X3, CN II-XII intact. Absent: motor sensory deficit - Psychiatric Psychiatric exam: Present: normal mood. Absent: agitated, anxious - Skin Skin exam: Present: warm, dry. Absent: rash Results - Labs CBC & BMP: 09/23/16 02:44 09/23/16 02:44 Lab Results: I have reviewed the past 24 hour labs
[2016-09-23] MEDS: RAMIPRIL 5 MG CAPSULE PO SCH (08:59)
[2016-09-23] MEDS: CARVEDILOL 12.5 MG TABLET PO SCH ×2 (08:59→21:30)
[2016-09-23] MEDS: POTASSIUM CHLORIDE 20 MEQ/15 ML UDCUP PO SCH ×3 (08:59→21:31)
[2016-09-23] MEDS: GABAPENTIN 300 MG CAPSULE PO SCH ×2 (08:59→21:31)
[2016-09-23] MEDS: ISOSORBIDE DINITRATE 20 MG TABLET PO SCH ×3 (08:59→21:31)
[2016-09-23] MEDS: GLIMEPIRIDE 4 MG TABLET PO SCH ×2 (08:59→17:10)
[2016-09-23] MEDS: LEVOFLOXACIN 500 MG TABLET PO SCH (08:59)
[2016-09-23] MEDS: MAGNESIUM OXIDE 400 MG TABLET PO SCH ×2 (08:59→21:31)
[2016-09-23] MEDS: PANTOPRAZOLE 20 MG TABLET PO SCH ×2 (09:00→21:31)
[2016-09-23] MEDS: MEMANTINE 5 MG TABLET PO SCH (09:00)
[2016-09-23] MEDS: ASPIRIN CHEW 81 MG TABLET PO SCH (09:00)
[2016-09-23] MEDS: POTASSIUM CHLORIDE RIDER 10 MEQ in PREMIX 1 EACH IV PRN (09:00)
[2016-09-23] MEDS: DILTIAZEM 30 MG TABLET PO SCH (09:00)
[2016-09-23] MEDS: FUROSEMIDE 40 MG TABLET PO SCH (09:00)
[2016-09-23] MEDS: predniSONE 20 MG TABLET PO SCH (09:00)
[2016-09-23] MEDS: BUDESONIDE/FORMOTEROL 160-4.5 INHALER 6 GM INH SCH ×2 (09:01→21:36)
--- NOTE | 2016-09-23 09:36 | Pulmonology Progress Note ---
Pulmonary - PN: Subj Interval history: The patient is a 71-year-old black man that has significant COPD. He came in with respiratory failure and has been on the ventilator for a few days. He was extubated and has done reasonably well. He did use his BiPAP during the night. He has been reasonably comfortable. The patient does have a history of atrial fibrillation. He has an ischemic cardiomyopathy with ejection fraction of 45%. His recent x-ray did not show any congestive heart failure. He was transferred to telemetry yesterday and said he had a fairly good night. He said it was not that short of breath overnight and feels better today. He did use his CPAP at night. He is sitting up, eating and feels fairly well this morning. Exam (Progress Note) - Constitutional Vitals: Period Temp Pulse Resp BP Sys/Gutiérrez Pulse Ox Last 24 Hr 97.2 F-98.9 F 66-85 15-20 101-144/64-83 88-99 Exam: General appearance: normal weight, no acute distress (The patient is alert and sitting up talking and looks better.) - Head Head exam: Present: normal inspection, normocephalic - Eye Eye exam: Present: EOMI. Absent: scleral icterus Pupils: Present: JEANINE - ENT ENT exam: Present: normal exam - Neck Neck exam: Present: normal inspection. Absent: lymphadenopathy, thyromegaly - Respiratory Respiratory exam: The patient has fairly good breath sounds with prolonged expiration but not much wheezing now. He is moving air well. - Cardiovascular Cardiovascular exam: Present: irregular rhythm. Absent: gallop, systolic murmur , tachycardia - GI/Abdominal GI/Abdominal exam: Present: normal bowel sounds, soft. Absent: organomegaly, tenderness - Extremities Exam Extremities exam: Absent: calf tenderness, edema, is moving his extremities well. - Neurological Exam Neurological exam: Present: other (The patient is alert and comfortable and moving everything okay.) - Psychiatric Psychiatric exam: Absent: agitated, anxious - Skin Skin exam: Present: warm, dry Results - Labs CBC & BMP: 09/23/16 02:44 09/23/16 02:44 Assessment and Plan (1) COPD with exacerbation Status: Acute Assessment and plan: Patient comes in with a COPD exacerbation and has been on the ventilator. He was extubated and is doing well now. His breathing is doing much better. Current Visit: No (2) Atrial fibrillation Status: Chronic Assessment and plan: Patient has controlled atrial fibrillation with PVCs and is fairly stable. Current Visit: Yes Qualifiers: Atrial fibrillation type: chronic Qualified Code(s): I48.2 - Chronic atrial fibrillation (3) Hypertension Status: Chronic Assessment and plan: His blood pressure has been under reasonable control. He appears to be hemodynamically stable. Current Visit: Yes (4) Diabetes Status: Chronic Assessment and plan: The patient's glucose is 204 this morning. Current Visit: Yes Qualifiers: Diabetes mellitus type: type 2 Diabetes mellitus gi tech insulin use: with mcfp use (5) Smoker Status: Chronic Assessment and plan: The patient certainly needs to stop smoking. Current Visit: Yes (6) Ischemic cardiomyopathy Status: Chronic Assessment and plan: The patient does not have any signs of heart failure now and is being followed by cardiology. Current Visit: Yes (7) Acute and chronic respiratory failure Status: Acute Assessment and plan: The patient was on the ventilator with respiratory failure but is doing better now. He is breathing comfortably and feels much better. He is using his CPAP at night. Current Visit: Yes Qualifiers: Respiratory failure complication: hypoxia Qualified Code(s): J96.21 - Acute and chronic respiratory failure with hypoxia
[2016-09-23] MEDS: LINACLOTIDE 145 MCG CAPSULE PO SCH (09:55)
--- NOTE | 2016-09-23 10:33 | Cardiology Progress Note ---
Assessment and Plan (1) COPD with exacerbation Status: Acute Assessment and plan: Better. Current Visit: No (2) Atrial fibrillation Status: Chronic Assessment and plan: This is chronic. Continue to adjust medicines. Increase warfarin. Would like to decrease and discontinue Cardizem as soon as possible. Current Visit: Yes Qualifiers: Atrial fibrillation type: chronic Qualified Code(s): I48.2 - Chronic atrial fibrillation (3) Acute and chronic respiratory failure Status: Acute Current Visit: Yes Qualifiers: Respiratory failure complication: hypoxia Qualified Code(s): J96.21 - Acute and chronic respiratory failure with hypoxia (4) Ischemic cardiomyopathy Status: Chronic Assessment and plan: EF is improved continue medical therapy Current Visit: Yes Cardiology - PN: Subj Interval history: Patient has no complaints this morning he is much more spontaneous he denies chest pain or shortness of breath. Exam (Progress Note) - Constitutional Vitals: Period Temp Pulse Resp BP Sys/Gutiérrez Pulse Ox Last 24 Hr 97.2 F-98.9 F 66-83 15-20 101-144/64-83 88-99 General appearance: normal weight - ENT ENT exam: Present: normal exam - Respiratory Respiratory exam: Present: clear to auscultation bilaterally (No wheezing today) - Cardiovascular Cardiovascular exam: Present: irregular rhythm (Rate is controlled) - GI/Abdominal GI/Abdominal exam: Present: normal bowel sounds - Extremities Exam Extremities exam: Present: normal inspection - Back Exam Back exam: Present: normal inspection - Neurological Exam Neurological exam: Present: alert. Absent: oriented X3 - Psychiatric Psychiatric exam: Present: flat affect - Skin Skin exam: Present: normal color, warm, dry Result/EKG - Labs CBC & BMP: 09/23/16 02:44 09/23/16 02:44 Labs: Laboratory Results - last 24 hr 09/22/16 09/22/16 09/22/16 11:30 18:03 23:04 WBC RBC Hgb Hct MCV MCH MCHC RDW Plt Count MPV Neut % (Auto) Lymph % (Auto) [place] % (Auto) Eos % (Auto) Baso % (Auto) Neut # (Auto) Lymph # (Auto) [place] # (Auto) Eos # (Auto) Baso # (Auto) Immature Gran % Nucleated RBC % Immature Gran # Nucleated RBCs # INR PT Patient/Control Mix Sodium Potassium Chloride Carbon Dioxide Anion Gap BUN Creatinine GFR Calculation BUN/Creatinine Ratio Glucose POC Glucose 247 H 394 H 340 H Calculated Osmolality Calcium Magnesium 09/23/16 09/23/16 09/23/16 02:44 02:44 02:44 WBC 12.0 RBC 4.49 Hgb 13.1 L D Hct 38.9 L MCV 86.6 L MCH 29 MCHC 33.7 RDW 13.0 Plt Count 154 MPV 11.5 Neut % (Auto) 82.2 H Lymph % (Auto) 12.6 L [place] % (Auto) 4.7 Eos % (Auto) 0.0 Baso % (Auto) 0.1 Neut # (Auto) 9.9 H Lymph # (Auto) 1.5 [place] # (Auto) 0.6 Eos # (Auto) 0.0 Baso # (Auto) 0.0 Immature Gran % 0.4 Nucleated RBC % 0.0 Immature Gran # 0.05 Nucleated RBCs # 0.00 INR 1.7 PT Patient/Control Mix 18.1 D Sodium 137 Potassium 3.5 Chloride 99 Carbon Dioxide 30 Anion Gap 11.5 BUN 40 H Creatinine 1.10 GFR Calculation 96 BUN/Creatinine Ratio 36.00 H Glucose 249 H POC Glucose Calculated Osmolality 290.8 Calcium 8.4 L Magnesium 2.3 09/23/16 05:57 WBC RBC Hgb Hct MCV MCH MCHC RDW Plt Count MPV Neut % (Auto) Lymph % (Auto) [place] % (Auto) Eos % (Auto) Baso % (Auto) Neut # (Auto) Lymph # (Auto) [place] # (Auto) Eos # (Auto) Baso # (Auto) Immature Gran % Nucleated RBC % Immature Gran # Nucleated RBCs # INR PT Patient/Control Mix Sodium Potassium Chloride Carbon Dioxide Anion Gap BUN Creatinine GFR Calculation BUN/Creatinine Ratio Glucose POC Glucose 204 H Calculated Osmolality Calcium Magnesium
[2016-09-23] MEDS: WARFARIN 5 MG TABLET PO SCH (17:11)
[2016-09-23] MEDS: ACETAMINOPHEN 325 MG TABLET PO PRN (17:28)
[2016-09-23] MEDS: INSULIN GLARGINE 100 UNIT/ML SUBCUT SCH (21:29)
[2016-09-23] MEDS: ATORVASTATIN 40 MG TABLET PO SCH (21:31)
[2016-09-23] MEDS: BACLOFEN 10 MG TABLET PO SCH (21:35)
[2016-09-23] MEDS: oxyCODONE/ACETAMINOPHEN 5-325 MG TABLET PO PRN (22:36)
[2016-09-24] MEDS: INSULIN REGULAR 100 UNIT/ML SUBCUT SCH ×2 (00:33→06:10)
[2016-09-24] MEDS: ALBUTEROL/IPRATROPIUM 3 ML NEB RESP TX SCH ×4 (00:34→19:54)
[2016-09-24 05:16] LABS: Basophils % 0.1 % (0.0-0.8); Hematocrit 40.4 VOL% (42.0-52.0); Hemoglobin 13.8 GM/DL (14.0-18.0); Immature Granulocytes % 0.4 %; Immature Granulocytes Absolute 0.06 #; Lymphocytes # 2.5 10*3/uL (1.4-4.0); Lymphocytes % 17.6 % (21.2-54.2); Mean Corpuscular HGB Conc 34.2 GM/DL (32-36); Mean Corpuscular Hemoglobin 30 PG (27-34); Mean Corpuscular Volume 86.3 FL (87-102); Monocytes # 1.2 10*3/uL (0.11-0.8); Monocytes % 8.7 % (1.7-12.7); Neutrophils # 10.3 10*3/uL (1.4-7.4); Neutrophils % 73.2 % (38.7-73.9); Platelet Count 155 T/CUMM (130-400); Red Blood Count 4.68 MC/CUMM (3.8-5.5); Red Cell Distribution Width 12.7 % (9.3-17.3)
[2016-09-24 05:33] LABS: INR 2.4
[2016-09-24 05:34] LABS: PT Patient Result 27.4 SECS
[2016-09-24 05:48] LABS: Calcium 8.1 MG/DL (8.5-10.1); Magnesium 2.4 MG/DL (1.8-2.4); Osmolality,Calculated 278.8 MOS/KG (273-304); Potassium 3.3 MMOL/L (3.5-5.1)
--- NOTE | 2016-09-24 08:08 | Pulmonology Progress Note ---
Pulmonary - PN: Subj Interval history: This 71-year-old black male is on the ventilator for acute on chronic respiratory failure. He has COPD with an exacerbation. May have some bronchopneumonia in the right base. Had an element of congestive heart failure. His ejection fraction is better than it was a couple years back. This is primarily exacerbation of his COPD. Today his lungs sound better. We will start doing CPAP's and wean as tolerated. 09/20/2016 patient tolerating CPAP. Will check mechanics and ABGs on CPAP and see if he is ready to be extubated. 09/21/2016 patient was a little bit tachypneic yesterday and mechanics were not quite up to guidelines for extubation so we have been waiting 1 more day. He has done well with CPAP. This morning his respiratory rate when he was asleep was 20. His mechanics look very good as to his ABGs on CPAP. We will extubate him. Patient is interactive and calm 09/24/2016 patient has done well postextubation. Now on room air with O2 sat 94% . He is on oral medications. I had a long discussion with him this morning about the need to not resume smoking. He lives in the [facility]. He is followed at an outpatient clinic failure. I will set him up a follow-up appointment in my office in 4-6 weeks. Exam (Progress Note) - Constitutional Vitals: Period Temp Pulse Resp BP Sys/Gutiérrez Pulse Ox Last 24 Hr 96.9 F-99.1 F 60-86 15-25 112-144/72-85 93-99 Exam: Patient alert and calm. Vital signs normal. Pupils react to light. Neck is supple. Chest reveals prolonged expiratory phase with no expiratory wheezes. Heart normal rate rhythm no murmurs. Abdomen soft no masses. Bowel sounds present. Extremities no clubbing cyanosis edema. Results - Labs CBC & BMP: 09/24/16 04:54 09/24/16 04:54 Lab Results: I have reviewed the past 24 hour labs Assessment and Plan (1) COPD with exacerbation Status: Acute Assessment and plan: Patient on ventilator. Getting steroids. Will reduce the dose. Needs antibiotics. Continue bronchodilators. His PCO2 is elevated. Will add Diamox. Consider Aminophyllin if no improvement in 24 hours 09/19/2016 lungs sound much better today. Still has elevated PCO2. Will start on CPAP trials. Change sedation to Precedex to keep him more alert. 09/20/2016 lungs sound better. Tolerating CPAP. ABGs improved. We will see if we can get him weaned. PCO2 is down to 42. 09/21/2016 no wheezing. ABGs much improved. Normal PCO2 on CPAP. Will extubate. Continuing steroids antibiotics and bronchodilators. 09/24/2016 patient's lungs are clear. Now on oral medications. Ready for discharge. Current Visit: No (2) Atrial fibrillation Status: Chronic Assessment and plan: Controlled rate. On anticoagulants. INR is subtherapeutic. 09/19/2016 rate controlled. 09/20/2016 heart rate is controlled 09/21/2016 heart rate continues to be controlled. 09/24/2016 heart rate is controlled. Continuing anticoagulants. Current Visit: Yes Qualifiers: Atrial fibrillation type: chronic Qualified Code(s): I48.2 - Chronic atrial fibrillation (3) Chronic anticoagulation Status: Chronic Assessment and plan: INR subtherapeutic. Defer to cardiology. 09/20/2016 INR still only 1.3. 09/21/2016 INR pending. 09/24/2016 INR in therapeutic range at 2.4. Current Visit: Yes (4) Ischemic cardiomyopathy Status: Chronic Assessment and plan: Reportedly has ejection fraction 25% 5 years ago. Repeat echo pending. Cardiology following. 09/19/2016 ejection fraction 45% on yesterday's echo. This represents marked improvement. 09/20/2016 congestive heart failure was relatively mild 09/21/2016 has a mild cardiomyopathy. Primary cause of respiratory failure COPD 09/24/2016 congestive heart failure controlled. Current Visit: Yes (5) Acute and chronic respiratory failure Status: Acute Assessment and plan: Has PCO2 of 59 on the ventilator with normal pH. This suggests that he has a chronically elevated PCO2. Will make it somewhat difficult to wean. Adding Diamox. Consider Aminophyllin. 09/19/2016 PCO2 is down to 49 this morning. Will not start Aminophyllin. 09/20/2016 COPD exacerbation is the primary cause of her respiratory failure. PCO2 is down to normal. Will check mechanics and blood gases on CPAP and see if we can get him extubated today. 09/21/2016 ABGs look good. Mechanics look good. Will extubate this morning. 09/24/2016 PCO2 was 39 off the ventilator. Acute respiratory failure has resolved. No longer requiring oxygen. Current Visit: Yes Qualifiers: Respiratory failure complication: hypoxia Qualified Code(s): J96.21 - Acute and chronic respiratory failure with hypoxia (6) Smoker Status: Chronic Assessment and plan: Will need further discussion of smoking cessation once he is off the vent. 09/24/2016 discussed the need to stay off cigarettes post discharge. I think he understands. Not sure he is going to comply. We will discuss it further when he returns to clinic. Current Visit: Yes
[2016-09-24] MEDS: LEVOFLOXACIN 500 MG TABLET PO SCH (08:27)
[2016-09-24] MEDS: GABAPENTIN 300 MG CAPSULE PO SCH ×2 (08:27→20:26)
[2016-09-24] MEDS: ASPIRIN CHEW 81 MG TABLET PO SCH (08:27)
[2016-09-24] MEDS: MEMANTINE 5 MG TABLET PO SCH (08:27)
[2016-09-24] MEDS: predniSONE 20 MG TABLET PO SCH (08:27)
[2016-09-24] MEDS: ISOSORBIDE DINITRATE 20 MG TABLET PO SCH ×3 (08:27→20:26)
[2016-09-24] MEDS: MAGNESIUM OXIDE 400 MG TABLET PO SCH ×2 (08:28→20:26)
[2016-09-24] MEDS: GLIMEPIRIDE 4 MG TABLET PO SCH ×2 (08:28→17:07)
[2016-09-24] MEDS: FUROSEMIDE 40 MG TABLET PO SCH (08:28)
[2016-09-24] MEDS: RAMIPRIL 5 MG CAPSULE PO SCH (08:28)
[2016-09-24] MEDS: CARVEDILOL 12.5 MG TABLET PO SCH ×2 (08:28→20:26)
[2016-09-24] MEDS: PANTOPRAZOLE 20 MG TABLET PO SCH ×2 (08:28→20:26)
[2016-09-24] MEDS: POTASSIUM CHLORIDE 20 MEQ/15 ML UDCUP PO SCH ×3 (08:29→20:26)
[2016-09-24] MEDS: LINACLOTIDE 145 MCG CAPSULE PO SCH (08:29)
--- NOTE | 2016-09-24 10:34 | Cardiology Progress Note ---
Assessment and Plan (1) Acute exacerbation of CHF (congestive heart failure) Status: Resolved Assessment and plan: SEE PLAN OF CARE LISTED BELOW Current Visit: Yes Qualifiers: Congestive heart failure type: systolic Qualified Code(s): I50.23 - Acute on chronic systolic (congestive) heart failure (2) Atrial fibrillation Status: Chronic Assessment and plan: SEE PLAN OF CARE LISTED BELOW Current Visit: Yes Qualifiers: Atrial fibrillation type: chronic Qualified Code(s): I48.2 - Chronic atrial fibrillation (3) COPD with exacerbation Status: Resolved Current Visit: No (4) Chronic anticoagulation Status: Chronic Assessment and plan: SEE PLAN OF CARE LISTED BELOW Current Visit: Yes (5) Hypertension Status: Chronic Assessment and plan: SEE PLAN OF CARE LISTED BELOW Current Visit: Yes (6) Dyslipidemia Status: Chronic Assessment and plan: SEE PLAN OF CARE LISTED BELOW Current Visit: Yes (7) Coronary artery disease involving coronary bypass graft Status: Chronic Assessment and plan: SEE PLAN OF CARE LISTED BELOW Current Visit: Yes (8) Diabetes Status: Chronic Assessment and plan: SEE PLAN OF CARE LISTED BELOW Current Visit: Yes Qualifiers: Diabetes mellitus type: type 2 Diabetes mellitus fpc insulin use: with intermediate project manager use (9) Smoker Status: Chronic Assessment and plan: SEE PLAN OF CARE LISTED BELOW Current Visit: Yes (10) Dyspnea on exertion Status: Acute Assessment and plan: SEE PLAN OF CARE LISTED BELOW Current Visit: Yes (11) Ischemic cardiomyopathy Status: Chronic Assessment and plan: SEE PLAN OF CARE LISTED BELOW Current Visit: Yes (12) Respiratory failure Status: Resolved Current Visit: Yes Cardiology - PN: Subj Interval history: Dolly Operator: Dr. Lagunas SUMMARY - Mr. Kim is a 71 year old male with known history of coronary artery disease, routinely followed by Dr. Lagunas. Patient was transferred to [facility] with complaints of chest pain and shortness of breath he has cardiac risk factors significant for known history of coronary artery disease, diabetes, hypertension, advanced age, sedentary lifestyle and current everyday smoker. patient has a past medical history of dementia, atrial fibrillation (chronically anticoagulated with Coumadin), ischemic cardiomyopathy (most recent ejection fraction 25% in 2011) and COPD. Patient underwent coronary artery bypass grafting in 2002 with ALCANTAR to LAD, SVG to circumflex artery and SVG to diagonal. Patient's most recent heart catheterization was performed in [address] Lgaunas. At that time, 1 of the 3 grafts were patent with a ALCANTAR graft to LAD widely patent without evidence of significant stenosis. Diffuse severe left ventricular hypokinesis, overall ejection fraction in the 25% range. SVG to marginal completely occluded and SVG to diagonal completely occluded. Widely patent stent to the circumflex artery. Patient has not followed up in the cardiology clinic in several years. Patient presented to [facility] with complaints of chest pain and shortness of breath. Last week, he went into respiratory distress and was transferred down to the ICU. He was then intubated and placed on the ventilator. Over the weekend, he was extubated. Now he has been transferred up to the telemetry unit. He has tolerated extubation well and has been without respiratory distress. SEPTEMBER 24, 2016 UPDATE - Patient was seen and examined on telemetry. He is doing well overnight and is without complaints this morning. He denies chest pain, heaviness and tightness. He also denies shortness of breath and palpitations. He remains in atrial fibrillation with controlled ventricular response. Calcium channel kellie has been discontinued per Dr. Temple. Diuretics have been transitioned to p.o. Patient has tolerated this transition well. COPD exacerbation continues to improve. Dr. Cantu has changed his medications to p.o. and is stable for discharge from a pulmonary standpoint. A cardiac standpoint, he is stable for discharge. He will be given a follow-up appointment with Dr. Lagunas in approximately 2 weeks. I will discuss this with Dr. Rinaldi and await his additional recommendations. ASSESSMENT/PLAN: 1. COPD WITH EXACERBATION - Patient has not been estimated from the ventilator. Has been transitioned to p.o. medications. Per pulmonary medicine , he is ready for discharge. 1. CHF, SYSTOLIC DYSFUCTION - Echocardiogram this admission revealed improved EF, estimated approximately 45%. Clinically stable at present. Continue current medical therapy. 2. ATRIAL FIBRILLATION WITH RVR - This is chronic. Now rate controlled with current medication regimen. Historically, he has been anticoagulated with Coumadin. INR today is therapeutic at 2.4. Will continue current dose of Coumadin. Continue to monitor daily INR and adjust as needed throughout his hospitalization. 3. CAD, STATUS POST CABG - Patient underwent CABG in 2002 with SVG to diagonal , SVG to circumflex and ALCANTAR to LAD. Continue current plan of care. 4. ISCHEMIC CARDIOMYOPATHY - Ejection fraction improved per echocardiogram this admission. Ejection fraction is now 45%. At this point, we will continue patient's current medication regimen with beta-kellie and VILMA inhibitor. Continue p.o. Lasix. 6. DIABETES - Management per attending. 7. DYSLIPIDEMIA - Continue lipid-lowering agent. 8. CHRONIC ANTICOAGULATION - INR this morning is 2.4. Continue current plan of care with Coumadin. INR daily. 9. CURRENT EVERYDAY SMOKER - Smoking cessation encouraged. 10. RESPIRATORY FAILURE - Resolved. 11. HYPERTENSION - Under well controlled today. Continue current plan of care. Will discuss with Dr. Rinaldi and await his additional recommendations. Exam (Progress Note) - Constitutional Vitals: Period Temp Pulse Resp BP Sys/Gutiérrez Pulse Ox Last 24 Hr 96.9 F-99.1 F 60-86 15-25 112-144/72-85 93-99 Exam: General: Appears well with no apparent distress. Pleasant and cooperative. Appears comfortable. HEENT: PERRL, normocephalic, atraumatic. Mucous membranes moist. No jaundice noted. Conjunctiva moist and clear, sclerae anicteric Neck: No JVD/HJR, no thyromegaly or lymphadenopathy noted. No carotid bruit appreciated Cardiac: Irregular rhythm with controlled rate. No murmur rub or gallop. Lungs: Clear to auscultation without accessory muscle use to assist the respiratory pattern. Without wheezing. Requiring oxygen via nasal cannula. Abdomen: Soft, bowel sounds normoactive. Nontender and nondistended. No abdominal bruit or thrill noted. No masses noted. Extremities: No clubbing, cyanosis noted. No edema noted. Upper extremity pulses 2+. Lower extremity pulses 2+. Capillary refill less than 3 seconds. Skin: No unusual lesions or rashes. No skin breakdown appreciated. Neuro: Awake and alert. Result/EKG - Labs CBC & BMP: 09/24/16 04:54 09/24/16 09:42 Lab Results: I have reviewed the past 24 hour labs Labs: Laboratory Results - last 24 hr 09/23/16 09/23/16 09/23/16 11:41 18:07 18:11 WBC RBC Hgb Hct MCV MCH MCHC RDW Plt Count MPV Neut % (Auto) Lymph % (Auto) [place] % (Auto) Eos % (Auto) Baso % (Auto) Neut # (Auto) Lymph # (Auto) [place] # (Auto) Eos # (Auto) Baso # (Auto) Immature Gran % Nucleated RBC % Immature Gran # Nucleated RBCs # INR PT Patient/Control Mix Sodium Potassium Chloride Carbon Dioxide Anion Gap BUN Creatinine GFR Calculation BUN/Creatinine Ratio Glucose POC Glucose 183 H > 500 H* 339 H Calculated Osmolality Calcium Magnesium 09/24/16 09/24/16 09/24/16 00:11 04:54 04:54 WBC 14.0 H RBC 4.68 Hgb 13.8 L Hct 40.4 L MCV 86.3 L MCH 30 MCHC 34.2 RDW 12.7 Plt Count 155 MPV 11.0 Neut % (Auto) 73.2 Lymph % (Auto) 17.6 L [place] % (Auto) 8.7 Eos % (Auto) 0.0 Baso % (Auto) 0.1 Neut # (Auto) 10.3 H Lymph # (Auto) 2.5 [place] # (Auto) 1.2 H Eos # (Auto) 0.0 Baso # (Auto) 0.0 Immature Gran % 0.4 Nucleated RBC % 0.0 Immature Gran # 0.06 Nucleated RBCs # 0.00 INR 2.4 PT Patient/Control Mix 27.4 D Sodium Potassium Chloride Carbon Dioxide Anion Gap BUN Creatinine GFR Calculation BUN/Creatinine Ratio Glucose POC Glucose 170 H Calculated Osmolality Calcium Magnesium 09/24/16 09/24/16 09/24/16 04:54 05:59 08:35 WBC RBC Hgb Hct MCV MCH MCHC RDW Plt Count MPV Neut % (Auto) Lymph % (Auto) [place] % (Auto) Eos % (Auto) Baso % (Auto) Neut # (Auto) Lymph # (Auto) [place] # (Auto) Eos # (Auto) Baso # (Auto) Immature Gran % Nucleated RBC % Immature Gran # Nucleated RBCs # INR PT Patient/Control Mix Sodium 137 Potassium 3.3 L Chloride 100 Carbon Dioxide 29 Anion Gap 11.3 BUN 29 H Creatinine 0.80 GFR Calculation 132 BUN/Creatinine Ratio 36.00 H Glucose 99 POC Glucose 85 52 L Calculated Osmolality 278.8 Calcium 8.1 L Magnesium 2.4 09/24/16 09/24/16 09/24/16 09:12 09:35 09:42 WBC RBC Hgb Hct MCV MCH MCHC RDW Plt Count MPV Neut % (Auto) Lymph % (Auto) [place] % (Auto) Eos % (Auto) Baso % (Auto) Neut # (Auto) Lymph # (Auto) [place] # (Auto) Eos # (Auto) Baso # (Auto) Immature Gran % Nucleated RBC % Immature Gran # Nucleated RBCs # INR PT Patient/Control Mix Sodium Potassium Chloride Carbon Dioxide Anion Gap BUN Creatinine GFR Calculation BUN/Creatinine Ratio Glucose 83 POC Glucose 44 L* 105 Calculated Osmolality Calcium Magnesium Specialty Discharge - Follow Up or Referrals Follow up with: Neel Cantu MD [Physician] - 10/23/16 1:30 pm (CXR,CBC,BMP) Sagar Lagunas MD [Physician] - 2 Weeks
[2016-09-24] MEDS: BUDESONIDE/FORMOTEROL 160-4.5 INHALER 6 GM INH SCH ×2 (11:34→21:35)
[2016-09-24] MEDS: ALUMINUM/MAGNES/SIMETH MAX STR 30 ML UDCUP PO PRN (11:53)
--- NOTE | 2016-09-24 12:00 | Hospitalist Progress Note ---
Assessment and Plan (1) COPD with exacerbation Status: Resolved Assessment and plan: 1)COPD- much better compensated. On O2 in room, using nebs. changed to oral prednisone this morning. Off vent a couple of days. Plan for discharge tomorrow morning. 2)afib- chronic. cards adjusting meds 3)HTN- controlled 4)ischemic cardiomyopathy- EF 45% on echo during this hospital stay. 5)acute on chronic resp failure 6)dispo- home tomorrow. Current Visit: No (2) Atrial fibrillation Status: Chronic Current Visit: Yes Qualifiers: Atrial fibrillation type: chronic Qualified Code(s): I48.2 - Chronic atrial fibrillation (3) Hypertension Status: Chronic Current Visit: Yes (4) Diabetes Status: Chronic Current Visit: Yes Qualifiers: Diabetes mellitus type: type 2 Diabetes mellitus mcc insulin use: with terminal worker use (5) Smoker Status: Chronic Current Visit: Yes (6) Ischemic cardiomyopathy Status: Chronic Current Visit: Yes (7) Acute and chronic respiratory failure Status: Acute Current Visit: Yes Qualifiers: Respiratory failure complication: hypoxia Qualified Code(s): J96.21 - Acute and chronic respiratory failure with hypoxia Hospitalist: Subjective Interval history: MR Kim has no complaints. He denies shortness of breath at rest. Has not been up and around much. Exam - Constitutional Vitals: Period Temp Pulse Resp BP Sys/Gutiérrez Pulse Ox Last 24 Hr 96.9 F-99.1 F 60-86 15-25 103-144/55-85 93-99 General appearance: normal weight, no acute distress - Head Head exam: Present: normocephalic, atraumatic - Eye Eye exam: Present: EOMI. Absent: scleral icterus - Respiratory Respiratory exam: Present: wheezes (few wheezes scattered end expiratory) - Cardiovascular Cardiovascular exam: Present: irregular rhythm - GI/Abdominal GI/Abdominal exam: Present: normal bowel sounds, soft. Absent: tenderness - Extremities Exam Extremities exam: Absent: edema - Neurological Exam Neurological exam: Present: alert, oriented X3 - Skin Skin exam: Present: warm, dry Results - Labs CBC & BMP: 09/24/16 04:54 09/24/16 09:42 Lab Results: I have reviewed the past 24 hour labs Specialty Discharge - Follow Up or Referrals Follow up with: Neel Cantu MD [Physician] - 10/23/16 1:30 pm (CXR,CBC,BMP) Sagar Lagunas MD [Physician] - 2 Weeks
[2016-09-24] MEDS: INSULIN LISPRO 100 UNIT/ML SUBCUT SCH ×3 (12:09→21:34)
[2016-09-24] MEDS: WARFARIN 5 MG TABLET PO SCH (17:07)
[2016-09-24] MEDS: ATORVASTATIN 40 MG TABLET PO SCH (20:26)
[2016-09-24] MEDS: BACLOFEN 10 MG TABLET PO SCH (20:26)
[2016-09-24] MEDS ORDERED: INSULIN GLARGINE 100 UNIT/ML SUBCUT SCH (21:00)
[2016-09-25] MEDS: oxyCODONE/ACETAMINOPHEN 5-325 MG TABLET PO PRN (00:06)
[2016-09-25] MEDS: ACETAMINOPHEN 325 MG TABLET PO PRN (00:52)
[2016-09-25] MEDS: ALBUTEROL/IPRATROPIUM 3 ML NEB RESP TX SCH ×2 (01:39→07:24)
[2016-09-25 04:51] LABS: Basophils % 0.1 % (0.0-0.8); Eosinophils % 0.1 % (0.00-10.9); Hematocrit 35.9 VOL% (42.0-52.0); Hemoglobin 12.6 GM/DL (14.0-18.0); Immature Granulocytes % 0.6 %; Lymphocytes # 3.1 10*3/uL (1.4-4.0); Mean Corpuscular HGB Conc 35.1 GM/DL (32-36); Mean Corpuscular Hemoglobin 30 PG (27-34); Mean Corpuscular Volume 86.7 FL (87-102); Monocytes # 1.5 10*3/uL (0.11-0.8); Monocytes % 9.3 % (1.7-12.7); Neutrophils # 11.5 10*3/uL (1.4-7.4); Neutrophils % 70.9 % (38.7-73.9); Platelet Count 164 T/CUMM (130-400); Red Blood Count 4.14 MC/CUMM (3.8-5.5); Red Cell Distribution Width 12.9 % (9.3-17.3); White Blood Count 16.3 T/CUMM (4-12)
[2016-09-25 05:36] LABS: Magnesium 2.3 MG/DL (1.8-2.4); Osmolality,Calculated 277.7 MOS/KG (273-304); Potassium 3.3 MMOL/L (3.5-5.1)
--- NOTE | 2016-09-25 07:40 | Discharge Summary ---
<Chang Mayer - Last Filed: 09/25/16 07:56> Hospital Course - Hospital Course Hospital Course: This is a very pleasant 71-year-old male that presented to the ED at [facility] on September 16, 2016 as a lateral transfer from [facility] in [place], [place] for the further evaluation of congestive heart failure exacerbation. The patient has a medical history significant for: Coronary artery disease, diabetes, hypertension, nicotine addiction, cerebrovascular accident, myocardial infarction, dyslipidemia, pneumonia, dementia, atrial fibrillation, chronic lower back pain, ischemic cardiomyopathy, and chronic obstructive pulmonary disease. Patient has a surgical history significant for: Coronary artery bypass grafting, internal defibrillator placement, and right rotator cuff repair. The patient reported the onset of chest pain and shortness of breath 1 week prior to presentation to [facility]. At the time of presentation at [facility], the patient was notably edematous and hypoxic. His was present at bedside and reported that the complaints of shortness of breath were increasing and she subsequently increased his oxygen. The reported that he was experiencing intermittent chest pain and that he was unable to lie flat at times. 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 Lagunas was notified. Upon Dr. Lagunas's recommendation, the patient was subsequently transferred to [facility] for further evaluation. Prior to departure from [facility], the patient was given Lasix 100 mg and a Morales catheter was inserted. The patient was transferred via EMS to [facility]. At the time of presentation, urinary output was noted at 3400 and the patient verbalized moderate relief from the shortness of breath. He was also noted to be grossly hypertensive with a blood pressure 156/ 115, heart rate of 102, oxygen saturations were noted at 90%. CT head reported as unremarkable for any acute intracranial pathology however, reported generalized atrophy, chronic small vessel ischemic changes, and old lacunar infarcts of the left basal ganglia. Chest x-ray reported progressive parenchymal findings in the right lung base and a small right pleural effusion. The patient was subsequently admitted to the hospitalist services for continuation of care. Due to the complexity of his multiple comorbidities, a pulmonary and cardiology consult was requested to assist in the management during the clinical encounter. Empiric antibiotics were initiated. Diuretic therapy was continued. The patient was evaluated by cardiology. Echocardiogram on September 17, 2016 reported an overall ejection fraction and an estimated 45%.On the night of September 17, 2016 , the patient was noted to be in respiratory distress. The patient was emergently intubated, placed on mechanical ventilation, and transferred to the critical care unit for continuation of care. At that time, pulmonology was consulted for ventilator and COPD management. The patient was placed on inhaled bronchodilators and intravenous corticosteroids. Antibiotic therapy was continued. The patient remained on mechanical ventilation and was subsequently extubated on September 21, 2016. The patient's condition improved and he was subsequently transferred to the telemetry unit on September 22, 2016. His condition has continued to improve. He has not experienced any significant overnight events. Today, we feel that he is indeed appropriate for discharge to follow-up with his primary care physician, cardiology, and pulmonology as directed. We have spoke with the patient in great detail regarding the need to refrain from nicotine use. The patient verbalizes the importance of this, however he reports no definite plan to stop. I have seen and examined Mr Kim today and formulated the discharge plan. He will have home health. 37 minutes were spent in exam, care coordination, discharge medicine reconciliation, and documentation. Specialty Discharge - Follow Up or Referrals Follow up with: Neel Cantu MD [Physician] - 10/23/16 1:30 pm (CXR,CBC,BMP) Sagar Lagunas MD [Physician] - 2 Weeks (With EKG, CBC and BMP.) His, PCP at hospital in [place] [Other] (1 week) Discharge Plan - Discharge Data Disposition: Home Health Service - Discharge Medications New Insulin Glargine [Lantus] 30 unit SUBCUT BEDTIME unit Levofloxacin Tab [Levaquin Tab] 500 mg PO DAILY #5 tablet Atorvastatin [Lipitor] 40 mg PO BEDTIME #30 tablet Furosemide Tab [Lasix Tab] 40 mg PO BID #60 tablet Continue Pantoprazole Tab [Protonix Tab] 20 mg PO BID Isosorbide Mononitrate [Imdur] 60 mg PO DAILY Warfarin [Coumadin] 5 mg PO QOTHER DAY Glimepiride [Amaryl] 4 mg PO BID W/MEALS Gabapentin Cap/Tab [Neurontin Cap/Tab] 600 mg PO BID Aspirin [Ecotrin] 81 mg PO DAILY Linaclotide [Linzess] 145 mcg PO AC BREAKFAST Ipratropium/Albuterol Sulfate [Iprat-Albut 0.5-3(2.5) mg/3 ml] 3 ml IH 5X DAILY Potassium Chloride Cap/Tab [K Dur] 20 meq PO TID Memantine [Namenda] 7 mg PO DAILY Ramipril [Altace] 10 mg PO DAILY Albuterol Inhaler [Proventil Inhaler] 2 puff INH Q4H PRN #1 inhaler PRN Reason: Shortness Of Breath/Wheezing Baclofen Tab [Lioresal] 10 mg PO BEDTIME Warfarin [Coumadin] 2.5 mg PO QOTHER DAY Alum/Mag/Simeth Max Str Liquid [Mylanta Max Strength Liquid] 30 ml PO Q4H PRN #0 udcup PRN Reason: Dyspepsia Budesonide/Formoterol 160-4.5 [Symbicort 160-4.5] 2 puff INH BID #1 inhaler Carvedilol [Coreg] 12.5 mg PO BID tablet Magnesium Chloride [Slow Mag] 64 mg PO BID tablet predniSONE TAB [PredniSONE] 20 mg PO DAILY #10 tablet Discontinued Furosemide Tab [Lasix Tab] 80 mg PO BID DIURETIC metOLazone [Zaroxolyn] 2.5 mg PO DAILY Insulin Glargine [Lantus] 45 unit SUBCUT BEDTIME Albuterol Inhaler [Proventil Inhaler] 1 puff INH Q6H PRN #1 inhaler PRN Reason: Shortness Of Breath/Wheezing No Action Nitroglycerin [Nitroglycerin SL Tab] 0.4 mg SL Q5M PRN PRN Reason: Chest Pain - Follow Up or Referral Follow Up: His, PCP at hospital in [place] [Other] (1 week) Neel Cantu MD [Physician] - 10/23/16 1:30 pm (CXR,CBC,BMP) Sagar Lagunas MD [Physician] - 2 Weeks (With EKG, CBC and BMP.) - Forms/Instructions Exam - Constitutional Vitals: Period Temp Pulse Resp BP Sys/Gutiérrez Pulse Ox Last 24 Hr 97.6 F-98.7 F 60-81 15-20 103-141/55-77 92-99 Discharge Results Labs on day of discharge: Labs from last 24 hours 09/25/16 09/25/16 09/25/16 07:31 06:16 04:26 WBC RBC Hgb Hct MCV MCH MCHC RDW Plt Count MPV Neut % (Auto) Lymph % (Auto) [place] % (Auto) Eos % (Auto) Baso % (Auto) Neut # (Auto) Lymph # (Auto) [place] # (Auto) Eos # (Auto) Baso # (Auto) Immature Gran % Nucleated RBC % Immature Gran # Nucleated RBCs # Sodium 138 Potassium 3.3 L Chloride 101 Carbon Dioxide 29 Anion Gap 11.3 BUN 21 H Creatinine 0.80 GFR Calculation 133 BUN/Creatinine Ratio 26.00 H Glucose 107 H POC Glucose 66 L 138 H Calculated Osmolality 277.7 Calcium 8.0 L Magnesium 2.3 09/25/16 09/24/16 09/24/16 04:26 23:49 18:48 WBC 16.3 H RBC 4.14 Hgb 12.6 L Hct 35.9 L MCV 86.7 L MCH 30 MCHC 35.1 RDW 12.9 Plt Count 164 MPV 11.0 Neut % (Auto) 70.9 Lymph % (Auto) 19.0 L [place] % (Auto) 9.3 Eos % (Auto) 0.1 Baso % (Auto) 0.1 Neut # (Auto) 11.5 H Lymph # (Auto) 3.1 [place] # (Auto) 1.5 H Eos # (Auto) 0.0 Baso # (Auto) 0.0 Immature Gran % 0.6 Nucleated RBC % 0.0 Immature Gran # 0.10 Nucleated RBCs # 0.00 Sodium Potassium Chloride Carbon Dioxide Anion Gap BUN Creatinine GFR Calculation BUN/Creatinine Ratio Glucose POC Glucose 360 H 288 H Calculated Osmolality Calcium Magnesium 09/24/16 09/24/16 09/24/16 16:44 11:45 09:42 WBC RBC Hgb Hct MCV MCH MCHC RDW Plt Count MPV Neut % (Auto) Lymph % (Auto) [place] % (Auto) Eos % (Auto) Baso % (Auto) Neut # (Auto) Lymph # (Auto) [place] # (Auto) Eos # (Auto) Baso # (Auto) Immature Gran % Nucleated RBC % Immature Gran # Nucleated RBCs # Sodium Potassium Chloride Carbon Dioxide Anion Gap BUN Creatinine GFR Calculation BUN/Creatinine Ratio Glucose 83 POC Glucose 198 H 216 H Calculated Osmolality Calcium Magnesium 09/24/16 09/24/16 09:35 09:12 WBC RBC Hgb Hct MCV MCH MCHC RDW Plt Count MPV Neut % (Auto) Lymph % (Auto) [place] % (Auto) Eos % (Auto) Baso % (Auto) Neut # (Auto) Lymph # (Auto) [place] # (Auto) Eos # (Auto) Baso # (Auto) Immature Gran % Nucleated RBC % Immature Gran # Nucleated RBCs # Sodium Potassium Chloride Carbon Dioxide Anion Gap BUN Creatinine GFR Calculation BUN/Creatinine Ratio Glucose POC Glucose 105 44 L* Calculated Osmolality Calcium Magnesium DS: Provider Date of admission: 09/16/16 22:42 Primary care physician: . No PCP Attending physician on admission: Scot Steward MD Consults: 09/16/16 23:03 Consult to Physician [CONS] Routine Comment: Consulting Provider: Cardiology - [facility] When should Consulting Provider be notified: In am Person Notified: Jose Manuel Date Notified: 09/17/16 Time Notified: 07:45 09/17/16 23:35 Consult to Physician [CONS] Routine Comment: Consulting Provider: Neel Cantu Consult to Specialist Group: Pulmonology When should Consulting Provider be notified: In am 09/19/16 16:02 Consult to Dietitian [CONS] Routine Reason for Dietitian: TF-Initiate/Manage Discharging clinician: Chang Mayer CNP <Deedee Solano - Last Filed: 09/25/16 10:06> Diagnosis - Discharge Diagnosis (1) Atrial fibrillation Status: Chronic (2) Hypertension Status: Chronic (3) Diabetes Status: Chronic (4) Smoker Status: Chronic (5) Ischemic cardiomyopathy Status: Chronic (6) Acute and chronic respiratory failure Status: Acute Discharge Plan - Discharge Data Condition at Discharge: Stable Discharge Diet: heart healthy Activity: resume usual activities as tolerated
--- NOTE | 2016-09-25 08:17 | Pulmonology Progress Note ---
Pulmonary - PN: Subj Interval history: This 71-year-old black male is on the ventilator for acute on chronic respiratory failure. He has COPD with an exacerbation. May have some bronchopneumonia in the right base. Had an element of congestive heart failure. His ejection fraction is better than it was a couple years back. This is primarily exacerbation of his COPD. Today his lungs sound better. We will start doing CPAP's and wean as tolerated. 09/20/2016 patient tolerating CPAP. Will check mechanics and ABGs on CPAP and see if he is ready to be extubated. 09/21/2016 patient was a little bit tachypneic yesterday and mechanics were not quite up to guidelines for extubation so we have been waiting 1 more day. He has done well with CPAP. This morning his respiratory rate when he was asleep was 20. His mechanics look very good as to his ABGs on CPAP. We will extubate him. Patient is interactive and calm 09/24/2016 patient has done well postextubation. Now on room air with O2 sat 94% . He is on oral medications. I had a long discussion with him this morning about the need to not resume smoking. He lives in the [facility]. He is followed at an outpatient clinic failure. I will set him up a follow-up appointment in my office in 4-6 weeks. 09/25/2016 patient doing well on oral medications off oxygen. Plans are for discharge today. I have set him up for follow-up appointment. We once again discussed the need to stay off the cigarettes. Exam (Progress Note) - Constitutional Vitals: Period Temp Pulse Resp BP Sys/Gutiérrez Pulse Ox Last 24 Hr 97.6 F-98.7 F 60-81 15-20 103-141/55-77 92-99 Exam: Patient alert and calm. Vital signs normal. Pupils react to light. Neck is supple. Chest reveals prolonged expiratory phase with no expiratory wheezes, he has a few basilar rhonchi.. Heart normal rate rhythm no murmurs. Abdomen soft no masses. Bowel sounds present. Extremities no clubbing cyanosis edema. Results - Labs CBC & BMP: 09/25/16 04:26 09/25/16 04:26 Lab Results: I have reviewed the past 24 hour labs Assessment and Plan (1) COPD with exacerbation Status: Resolved Assessment and plan: Patient on ventilator. Getting steroids. Will reduce the dose. Needs antibiotics. Continue bronchodilators. His PCO2 is elevated. Will add Diamox. Consider Aminophyllin if no improvement in 24 hours 09/19/2016 lungs sound much better today. Still has elevated PCO2. Will start on CPAP trials. Change sedation to Precedex to keep him more alert. 09/20/2016 lungs sound better. Tolerating CPAP. ABGs improved. We will see if we can get him weaned. PCO2 is down to 42. 09/21/2016 no wheezing. ABGs much improved. Normal PCO2 on CPAP. Will extubate. Continuing steroids antibiotics and bronchodilators. 09/24/2016 patient's lungs are clear. Now on oral medications. Ready for discharge. 09/25/2016 exacerbation has resolved. He has underlying COPD. We will evaluate further when he returns to the office. Current Visit: No (2) Atrial fibrillation Status: Chronic Assessment and plan: Controlled rate. On anticoagulants. INR is subtherapeutic. 09/19/2016 rate controlled. 09/20/2016 heart rate is controlled 09/21/2016 heart rate continues to be controlled. 09/24/2016 heart rate is controlled. Continuing anticoagulants. Current Visit: Yes Qualifiers: Atrial fibrillation type: chronic Qualified Code(s): I48.2 - Chronic atrial fibrillation (3) Chronic anticoagulation Status: Chronic Assessment and plan: INR subtherapeutic. Defer to cardiology. 09/20/2016 INR still only 1.3. 09/21/2016 INR pending. 09/24/2016 INR in therapeutic range at 2.4. Current Visit: Yes (4) Ischemic cardiomyopathy Status: Chronic Assessment and plan: Reportedly has ejection fraction 25% 5 years ago. Repeat echo pending. Cardiology following. 09/19/2016 ejection fraction 45% on yesterday's echo. This represents marked improvement. 09/20/2016 congestive heart failure was relatively mild 09/21/2016 has a mild cardiomyopathy. Primary cause of respiratory failure COPD 09/24/2016 congestive heart failure controlled. 09/25/2016 congestive heart failure improved. Current Visit: Yes (5) Acute and chronic respiratory failure Status: Acute Assessment and plan: Has PCO2 of 59 on the ventilator with normal pH. This suggests that he has a chronically elevated PCO2. Will make it somewhat difficult to wean. Adding Diamox. Consider Aminophyllin. 09/19/2016 PCO2 is down to 49 this morning. Will not start Aminophyllin. 09/20/2016 COPD exacerbation is the primary cause of her respiratory failure. PCO2 is down to normal. Will check mechanics and blood gases on CPAP and see if we can get him extubated today. 09/21/2016 ABGs look good. Mechanics look good. Will extubate this morning. 09/24/2016 PCO2 was 39 off the ventilator. Acute respiratory failure has resolved. No longer requiring oxygen. 09/25/2016 should be able to go home without oxygen. Current Visit: Yes Qualifiers: Respiratory failure complication: hypoxia Qualified Code(s): J96.21 - Acute and chronic respiratory failure with hypoxia (6) Smoker Status: Chronic Assessment and plan: Will need further discussion of smoking cessation once he is off the vent. 09/24/2016 discussed the need to stay off cigarettes post discharge. I think he understands. Not sure he is going to comply. We will discuss it further when he returns to clinic. 09/25/2016 we again discussed the need to stay off cigarettes. Current Visit: Yes Specialty Discharge - Follow Up or Referrals Follow up with: Neel Cantu MD [Physician] - 10/23/16 1:30 pm (CXR,CBC,BMP) Sagar Lagunas MD [Physician] - 2 Weeks
[2016-09-25] MEDS: BUDESONIDE/FORMOTEROL 160-4.5 INHALER 6 GM INH SCH (08:48)
[2016-09-25] MEDS ORDERED: POTASSIUM CHLORIDE 20 MEQ/15 ML UDCUP PO ONE (08:49)
[2016-09-25] MEDS: FUROSEMIDE 40 MG TABLET PO SCH (08:50)
[2016-09-25] MEDS: MEMANTINE 5 MG TABLET PO SCH (08:50)
[2016-09-25] MEDS: ASPIRIN CHEW 81 MG TABLET PO SCH (08:50)
[2016-09-25] MEDS: ISOSORBIDE DINITRATE 20 MG TABLET PO SCH (08:50)
[2016-09-25] MEDS: LEVOFLOXACIN 500 MG TABLET PO SCH (08:51)
[2016-09-25] MEDS: POTASSIUM CHLORIDE 20 MEQ/15 ML UDCUP PO SCH (08:51)
[2016-09-25] MEDS: predniSONE 20 MG TABLET PO SCH (08:51)
[2016-09-25] MEDS: RAMIPRIL 5 MG CAPSULE PO SCH (08:51)
[2016-09-25] MEDS: CARVEDILOL 12.5 MG TABLET PO SCH (08:51)
[2016-09-25] MEDS: MAGNESIUM OXIDE 400 MG TABLET PO SCH (08:51)
[2016-09-25] MEDS: GABAPENTIN 300 MG CAPSULE PO SCH (08:51)
[2016-09-25] MEDS: PANTOPRAZOLE 20 MG TABLET PO SCH (08:51)
[2016-09-25] MEDS: LINACLOTIDE 145 MCG CAPSULE PO SCH (08:55)
[2016-09-25] MEDS: INSULIN LISPRO 100 UNIT/ML SUBCUT SCH ×2 (08:56→12:16)
[2016-09-25] MEDS: GLIMEPIRIDE 4 MG TABLET PO SCH (08:56)
--- NOTE | 2016-09-25 09:16 | Cardiology Progress Note ---
<Constanza Kelley - Last Filed: 09/25/16 09:10> Assessment and Plan (1) Acute exacerbation of CHF (congestive heart failure) Status: Resolved Assessment and plan: SEE PLAN OF CARE LISTED BELOW Current Visit: Yes Qualifiers: Congestive heart failure type: systolic Qualified Code(s): I50.23 - Acute on chronic systolic (congestive) heart failure (2) Atrial fibrillation Status: Chronic Assessment and plan: SEE PLAN OF CARE LISTED BELOW Current Visit: Yes Qualifiers: Atrial fibrillation type: chronic Qualified Code(s): I48.2 - Chronic atrial fibrillation (3) COPD with exacerbation Status: Resolved Current Visit: No (4) Chronic anticoagulation Status: Chronic Assessment and plan: SEE PLAN OF CARE LISTED BELOW Current Visit: Yes (5) Hypertension Status: Chronic Assessment and plan: SEE PLAN OF CARE LISTED BELOW Current Visit: Yes (6) Dyslipidemia Status: Chronic Assessment and plan: SEE PLAN OF CARE LISTED BELOW Current Visit: Yes (7) Coronary artery disease involving coronary bypass graft Status: Chronic Assessment and plan: SEE PLAN OF CARE LISTED BELOW Current Visit: Yes (8) Diabetes Status: Chronic Assessment and plan: SEE PLAN OF CARE LISTED BELOW Current Visit: Yes Qualifiers: Diabetes mellitus type: type 2 Diabetes mellitus fdc insulin use: with joint terminal attack controller use (9) Smoker Status: Chronic Assessment and plan: SEE PLAN OF CARE LISTED BELOW Current Visit: Yes (10) Dyspnea on exertion Status: Acute Assessment and plan: SEE PLAN OF CARE LISTED BELOW Current Visit: Yes (11) Ischemic cardiomyopathy Status: Chronic Assessment and plan: SEE PLAN OF CARE LISTED BELOW Current Visit: Yes (12) Respiratory failure Status: Resolved Current Visit: Yes Cardiology - PN: Subj Interval history: [employer] Officer: Dr. Lagunas SUMMARY - Mr. Kim is a 71 year old male with known history of coronary artery disease, routinely followed by Dr. Lagunas. Patient was transferred to [facility] with complaints of chest pain and shortness of breath he has cardiac risk factors significant for known history of coronary artery disease, diabetes, hypertension, advanced age, sedentary lifestyle and current everyday smoker. patient has a past medical history of dementia, atrial fibrillation (chronically anticoagulated with Coumadin), ischemic cardiomyopathy (most recent ejection fraction 25% in 2012) and COPD. Patient underwent coronary artery bypass grafting in 2002 with ALCANTAR to LAD, SVG to circumflex artery and SVG to diagonal. Patient's most recent heart catheterization was performed in [address] Lagunas. At that time, 1 of the 3 grafts were patent with a ALCANTAR graft to LAD widely patent without evidence of significant stenosis. Diffuse severe left ventricular hypokinesis, overall ejection fraction in the 25% range. SVG to marginal completely occluded and SVG to diagonal completely occluded. Widely patent stent to the circumflex artery. Patient has not followed up in the cardiology clinic in several years. Patient presented to [facility] with complaints of chest pain and shortness of breath. Last week, he went into respiratory distress and was transferred down to the ICU. He was then intubated and placed on the ventilator. Over the weekend, he was extubated. Now he has been transferred up to the telemetry unit. He has tolerated extubation well and has been without respiratory distress. SEPTEMBER 25, 2016 UPDATE - Patient was seen and examined on telemetry. He did well overnight and is without complaints this morning. He denies chest pain, heaviness and tightness. He also denies shortness of breath and palpitations. He remains in atrial fibrillation with controlled ventricular response. Currently heart rates ranging in the 80s. Patient's medication regimen has been transitioned to p.o., he has tolerated this well. From a cardiac standpoint, he is stable for discharge. Hospital medicine plans to discharge patient later today. He has been given a follow-up appointment with Dr. Lagunas in approximately 2 weeks. I will discuss this with Dr. Rinaldi and await his additional recommendations. ASSESSMENT/PLAN: 1. COPD WITH EXACERBATION - Compensated. Patient has not been estimated from the ventilator. Has been transitioned to p.o. medications. Per pulmonary medicine, he is ready for discharge. 1. CHF, SYSTOLIC DYSFUCTION - Echocardiogram this admission revealed improved EF, estimated approximately 45%. Clinically stable at present. Continue current medical therapy. 2. ATRIAL FIBRILLATION WITH RVR - This is chronic. Now rate controlled with current medication regimen. Historically, he has been anticoagulated with Coumadin. INR is therapeutic at 2.4. Will continue current dose of Coumadin. Patient will need an appointment for INR check after discharge. Defer management of this to attending. 3. CAD, STATUS POST CABG - Patient underwent CABG in 2002 with SVG to diagonal , SVG to circumflex and ALCANTAR to LAD. Continue current plan of care. 4. ISCHEMIC CARDIOMYOPATHY - Ejection fraction improved per echocardiogram this admission. Ejection fraction is now 45%. At this point, we will continue patient's current medication regimen with beta-kellie and VILMA inhibitor. Continue p.o. Lasix. 6. DIABETES - Management per attending. 7. DYSLIPIDEMIA - Continue lipid-lowering agent. 8. CHRONIC ANTICOAGULATION - INR is 2.4. Continue current plan of care with Coumadin. INR daily. Patient will need a point for INR check after discharge. Defer management this to attending. 9. CURRENT EVERYDAY SMOKER - Smoking cessation encouraged. 10. RESPIRATORY FAILURE - Resolved. 11. HYPERTENSION - Under well controlled today. Continue current plan of care. 12. HYPOKALEMIA - Replaced. Will discuss with Dr. Rinaldi and await his additional recommendations. Exam (Progress Note) - Constitutional Vitals: Period Temp Pulse Resp BP Sys/Gutiérrez Pulse Ox Last 24 Hr 97.6 F-98.7 F 60-81 15-20 103-141/55-77 92-99 Exam: General: Appears well with no apparent distress. Pleasant and cooperative. Appears comfortable. HEENT: PERRL, normocephalic, atraumatic. Mucous membranes moist. No jaundice noted. Conjunctiva moist and clear, sclerae anicteric Neck: No JVD/HJR, no thyromegaly or lymphadenopathy noted. No carotid bruit appreciated Cardiac: Irregular rhythm with controlled rate. No murmur rub or gallop. Lungs: Clear to auscultation without accessory muscle use to assist the respiratory pattern. Without wheezing. Requiring oxygen via nasal cannula. Abdomen: Soft, bowel sounds normoactive. Nontender and nondistended. No abdominal bruit or thrill noted. No masses noted. Extremities: No clubbing, cyanosis noted. No edema noted. Upper extremity pulses 2+. Lower extremity pulses 2+. Capillary refill less than 3 seconds. Skin: No unusual lesions or rashes. No skin breakdown appreciated. Neuro: Awake and alert. Result/EKG - Labs CBC & BMP: 09/25/16 04:26 09/25/16 04:26 Lab Results: I have reviewed the past 24 hour labs Labs: Laboratory Results - last 24 hr 09/24/16 09/24/16 09/24/16 09:12 09:35 09:42 WBC RBC Hgb Hct MCV MCH MCHC RDW Plt Count MPV Neut % (Auto) Lymph % (Auto) Cottle % (Auto) Eos % (Auto) Baso % (Auto) Neut # (Auto) Lymph # (Auto) Cottle # (Auto) Eos # (Auto) Baso # (Auto) Immature Gran % Nucleated RBC % Immature Gran # Nucleated RBCs # Sodium Potassium Chloride Carbon Dioxide Anion Gap BUN Creatinine GFR Calculation BUN/Creatinine Ratio Glucose 83 POC Glucose 44 L* 105 Calculated Osmolality Calcium Magnesium 09/24/16 09/24/16 09/24/16 11:45 16:44 18:48 WBC RBC Hgb Hct MCV MCH MCHC RDW Plt Count MPV Neut % (Auto) Lymph % (Auto) Cottle % (Auto) Eos % (Auto) Baso % (Auto) Neut # (Auto) Lymph # (Auto) Cottle # (Auto) Eos # (Auto) Baso # (Auto) Immature Gran % Nucleated RBC % Immature Gran # Nucleated RBCs # Sodium Potassium Chloride Carbon Dioxide Anion Gap BUN Creatinine GFR Calculation BUN/Creatinine Ratio Glucose POC Glucose 216 H 198 H 288 H Calculated Osmolality Calcium Magnesium 09/24/16 09/25/16 09/25/16 23:49 04:26 04:26 WBC 16.3 H RBC 4.14 Hgb 12.6 L Hct 35.9 L MCV 86.7 L MCH 30 MCHC 35.1 RDW 12.9 Plt Count 164 MPV 11.0 Neut % (Auto) 70.9 Lymph % (Auto) 19.0 L Cottle % (Auto) 9.3 Eos % (Auto) 0.1 Baso % (Auto) 0.1 Neut # (Auto) 11.5 H Lymph # (Auto) 3.1 Cottle # (Auto) 1.5 H Eos # (Auto) 0.0 Baso # (Auto) 0.0 Immature Gran % 0.6 Nucleated RBC % 0.0 Immature Gran # 0.10 Nucleated RBCs # 0.00 Sodium 138 Potassium 3.3 L Chloride 101 Carbon Dioxide 29 Anion Gap 11.3 BUN 21 H Creatinine 0.80 GFR Calculation 133 BUN/Creatinine Ratio 26.00 H Glucose 107 H POC Glucose 360 H Calculated Osmolality 277.7 Calcium 8.0 L Magnesium 2.3 09/25/16 09/25/16 06:16 07:31 WBC RBC Hgb Hct MCV MCH MCHC RDW Plt Count MPV Neut % (Auto) Lymph % (Auto) Cottle % (Auto) Eos % (Auto) Baso % (Auto) Neut # (Auto) Lymph # (Auto) Cottle # (Auto) Eos # (Auto) Baso # (Auto) Immature Gran % Nucleated RBC % Immature Gran # Nucleated RBCs # Sodium Potassium Chloride Carbon Dioxide Anion Gap BUN Creatinine GFR Calculation BUN/Creatinine Ratio Glucose POC Glucose 138 H 66 L Calculated Osmolality Calcium Magnesium Specialty Discharge - Follow Up or Referrals Follow up with: His, PCP at hospital in [place] [Other] (1 week) Neel Cantu MD [Physician] - 10/23/16 1:30 pm (CXR,CBC,BMP) Sagar Lagunas MD [Physician] - 2 Weeks (With EKG, CBC and BMP.) <Héctor Rinaldi - Last Filed: 09/25/16 09:59> Cardiology - PN: Subj Interval history: Cardiology addendum. Patient examined and chart reviewed and discussed with nurse Constanza Kelley RN. Patient breathing has improved significantly since admission. No longer wheezing. Telemetry shows chronic atrial fib with controlled rate. O2 sat 95% Decreased breath sounds with few rhonchi but no wheezing and better air movement. Irregular rhythm no murmur Plan For discharge today. Office visit with Dr. Lagunas as scheduled Exam (Progress Note) - Constitutional Vitals: Period Temp Pulse Resp BP Sys/Gutiérrez Pulse Ox Last 24 Hr 97.6 F-98.7 F 60-81 15-20 103-141/55-77 92-99 Result/EKG - Labs CBC & BMP: 09/25/16 04:26 09/25/16 04:26 Labs: Laboratory Results - last 24 hr 09/24/16 09/24/16 09/24/16 09:42 11:45 16:44 WBC RBC Hgb Hct MCV MCH MCHC RDW Plt Count MPV Neut % (Auto) Lymph % (Auto) Cottle % (Auto) Eos % (Auto) Baso % (Auto) Neut # (Auto) Lymph # (Auto) Cottle # (Auto) Eos # (Auto) Baso # (Auto) Immature Gran % Nucleated RBC % Immature Gran # Nucleated RBCs # Sodium Potassium Chloride Carbon Dioxide Anion Gap BUN Creatinine GFR Calculation BUN/Creatinine Ratio Glucose 83 POC Glucose 216 H 198 H Calculated Osmolality Calcium Magnesium 09/24/16 09/24/16 09/25/16 18:48 23:49 04:26 WBC 16.3 H RBC 4.14 Hgb 12.6 L Hct 35.9 L MCV 86.7 L MCH 30 MCHC 35.1 RDW 12.9 Plt Count 164 MPV 11.0 Neut % (Auto) 70.9 Lymph % (Auto) 19.0 L Cottle % (Auto) 9.3 Eos % (Auto) 0.1 Baso % (Auto) 0.1 Neut # (Auto) 11.5 H Lymph # (Auto) 3.1 Cottle # (Auto) 1.5 H Eos # (Auto) 0.0 Baso # (Auto) 0.0 Immature Gran % 0.6 Nucleated RBC % 0.0 Immature Gran # 0.10 Nucleated RBCs # 0.00 Sodium Potassium Chloride Carbon Dioxide Anion Gap BUN Creatinine GFR Calculation BUN/Creatinine Ratio Glucose POC Glucose 288 H 360 H Calculated Osmolality Calcium Magnesium 09/25/16 09/25/16 09/25/16 04:26 06:16 07:31 WBC RBC Hgb Hct MCV MCH MCHC RDW Plt Count MPV Neut % (Auto) Lymph % (Auto) Cottle % (Auto) Eos % (Auto) Baso % (Auto) Neut # (Auto) Lymph # (Auto) Cottle # (Auto) Eos # (Auto) Baso # (Auto) Immature Gran % Nucleated RBC % Immature Gran # Nucleated RBCs # Sodium 138 Potassium 3.3 L Chloride 101 Carbon Dioxide 29 Anion Gap 11.3 BUN 21 H Creatinine 0.80 GFR Calculation 133 BUN/Creatinine Ratio 26.00 H Glucose 107 H POC Glucose 138 H 66 L Calculated Osmolality 277.7 Calcium 8.0 L Magnesium 2.3
[2016-09-25] MEDS ORDERED: POTASSIUM CHLORIDE 20 MEQ TABLET PO ONE (09:41)
[2016-09-25 11:49] VITALS: BP 107/52
== END 2016-09-25 13:52 | disposition home health service (06) | DRG 291 ==
LOC: EDBD → EDUNIT# → N.ED 21:14 → N.EDINP 22:42 → SUATTDRO 22:42 → N.TELES 23:00 → N.ICU 09-17 20:19 → N.TELEN 09-22 11:16
PROVIDERS: ADMIT Internal Medicine; ATTEND Internal Medicine

== ENCOUNTER 2017-05-06 22:44 | Inpatient (IN) ==
[2017-05-06] MEDS ORDERED: SODIUM CHLORIDE 0.9% 1,000 ML IV STA (23:14)
[2017-05-07 00:04] LABS: Basophils % 0.3 % (0.0-0.8); Immature Granulocytes % 0.6 %; Immature Granulocytes Absolute 0.05 #; Lymphocytes # 0.9 10*3/uL (1.4-4.0); Mean Corpuscular HGB Conc 32.6 GM/DL (32-36); Mean Corpuscular Hemoglobin 29 PG (27-34); Mean Corpuscular Volume 88.1 FL (87-102); Mean Platelet Volume 11.8 FL (9.6-12.0); Neutrophils # 5.8 10*3/uL (1.4-7.4); Neutrophils % 75.1 % (38.7-73.9); Platelet Count 155 T/CUMM (130-400); Red Blood Count 4.88 MC/CUMM (3.8-5.5); Red Cell Distribution Width 13.5 % (9.3-17.3); White Blood Count 7.7 T/CUMM (4-12)
[2017-05-07 00:28] LABS: Apearance,Urine CLOUDY (Clear); Bacteria,Urine Many /HPF (Few); Bilirubin,Urine Negative (Negative); Blood, Urine Moderate mg/dL (Negative); Calcium 9.4 MG/DL (8.5-10.1); Glucose,Urine (UA) >=500 mg/dL (Negative); Ketones,Urine Negative (Negative); Magnesium 2.3 MG/DL (1.8-2.4); Mucus,Urine Few /LPF (Occasional); Nitrite,Urine Positive (Negative); Osmolality,Calculated 316.1 MOS/KG (273-304); Potassium 2.8 MMOL/L (3.5-5.1); Protein,Urine 100 MG/DL; RBC,Urine 97 /HPF (0-4); Urine Color Yellow (Yellow); Urine Specific Gravity 1.013 (1.001-1.035); Urine Urobilinogen < 2.0 EU/DL (0.2-1.0); WBC,Urine 3011 /HPF (0-6)
[2017-05-07] MEDS ORDERED: POTASSIUM CHLORIDE RIDER 20 MEQ in PREMIX 1 EACH IV STA (00:41)
[2017-05-07] MEDS ORDERED: POTASSIUM CHLORIDE RIDER 200 ML IV ONE (01:06)
[2017-05-07] MEDS ORDERED: LEVOFLOXACIN INJ 750 MG in PREMIX 1 EACH IV STA (02:22)
[2017-05-07] MEDS ORDERED: ONDANSETRON 4 MG/2 ML VIAL IV PRN (03:24)
[2017-05-07] MEDS ORDERED: ACETAMINOPHEN 325 MG TABLET PO PRN (03:24)
[2017-05-07] MEDS ORDERED: GLUCAGON 1 MG VIAL IM PRN (03:24)
[2017-05-07] MEDS ORDERED: DEXTROSE 50% 25 GM/50 ML VIAL IV PRN (03:24)
[2017-05-07] MEDS ORDERED: LEVOFLOXACIN INJ 150 ML IV ONE (04:12)
[2017-05-07] MEDS: cefTRIAXone 1,000 MG in SYRINGE 1 EACH IV SCH (06:02)
[2017-05-07] MEDS: AZITHROMYCIN INJ 500 MG in SODIUM CHLORIDE 0.9% 250 ML IV SCH (06:14)
[2017-05-07 06:39] LABS: Basophils % 0.1 % (0.0-0.8); Hematocrit 41.1 VOL% (42.0-52.0); Hemoglobin 13.8 GM/DL (14.0-18.0); Immature Granulocytes % 0.4 %; Immature Granulocytes Absolute 0.03 #; Lymphocytes # 1.3 10*3/uL (1.4-4.0); Lymphocytes % 18.7 % (21.2-54.2); Mean Corpuscular HGB Conc 33.6 GM/DL (32-36); Mean Corpuscular Hemoglobin 29 PG (27-34); Mean Corpuscular Volume 86.9 FL (87-102); Mean Platelet Volume 11.5 FL (9.6-12.0); Monocytes % 14.3 % (1.7-12.7); Neutrophils # 4.8 10*3/uL (1.4-7.4); Neutrophils % 66.5 % (38.7-73.9); Platelet Count 152 T/CUMM (130-400); Red Blood Count 4.73 MC/CUMM (3.8-5.5); Red Cell Distribution Width 13.5 % (9.3-17.3); White Blood Count 7.2 T/CUMM (4-12)
[2017-05-07 06:47] LABS: INR 1.4; PT Patient Result 14.5 SECS
[2017-05-07] MEDS ORDERED: ALBUTEROL/IPRATROPIUM 3 ML NEB RESP TX SCH (07:00)
[2017-05-07 07:06] LABS: Calcium 9.3 MG/DL (8.5-10.1); Osmolality,Calculated 315.8 MOS/KG (273-304); Potassium 2.7 MMOL/L (3.5-5.1)
[2017-05-07] MEDS ORDERED: POTASSIUM CHLORIDE INJ 20 MEQ in SODIUM CHLORIDE 0.45% 250 ML IV ONE (08:00)
[2017-05-07] MEDS: INSULIN REGULAR 100 UNIT/ML SUBCUT SCH ×4 (08:49→20:50)
[2017-05-07] MEDS ORDERED: PANTOPRAZOLE 40 MG TABLET PO SCH (09:00)
[2017-05-07] MEDS ORDERED: LORazepam 1 MG TABLET PO PRN (11:02)
[2017-05-07] MEDS ORDERED: BUDESONIDE/FORMOTEROL 160-4.5 INHALER 6 GM INH PRN (11:02)
[2017-05-07] MEDS: POTASSIUM CHLORIDE RIDER 10 MEQ in PREMIX 1 EACH IV SCH ×2 (11:45→11:46)
[2017-05-07] MEDS: ISOSORBIDE MONONITRATE 60 MG TABLET PO SCH (11:47)
[2017-05-07] MEDS: LINACLOTIDE 145 MCG CAPSULE PO SCH (11:47)
[2017-05-07] MEDS: ALBUTEROL/IPRATROPIUM 3 ML NEB RESP TX SCH ×3 (14:09→23:58)
[2017-05-07] MEDS: CARVEDILOL 25 MG TABLET PO SCH (16:41)
[2017-05-07] MEDS: INSULIN GLARGINE 100 UNIT/ML SUBCUT SCH (20:50)
[2017-05-08] MEDS: cefTRIAXone 1,000 MG in SYRINGE 1 EACH IV SCH (03:03)
[2017-05-08] MEDS: AZITHROMYCIN INJ 500 MG in SODIUM CHLORIDE 0.9% 250 ML IV SCH (03:46)
[2017-05-08 06:56] LABS: Magnesium 2.2 MG/DL (1.8-2.4); Osmolality,Calculated 317.6 MOS/KG (273-304); Potassium 3.8 MMOL/L (3.5-5.1)
[2017-05-08] MEDS: ALBUTEROL/IPRATROPIUM 3 ML NEB RESP TX SCH ×4 (07:43→20:29)
[2017-05-08] MEDS: INSULIN REGULAR 100 UNIT/ML SUBCUT SCH ×4 (09:03→21:06)
[2017-05-08] MEDS: CARVEDILOL 25 MG TABLET PO SCH ×2 (09:03→17:42)
[2017-05-08] MEDS: LINACLOTIDE 145 MCG CAPSULE PO SCH (09:03)
[2017-05-08] MEDS: ISOSORBIDE MONONITRATE 60 MG TABLET PO SCH (09:03)
[2017-05-08] MEDS: ASPIRIN EC 81 MG TABLET PO SCH (09:03)
[2017-05-08] MEDS: PANTOPRAZOLE 40 MG VIAL IV SCH (09:29)
[2017-05-08] MEDS: LACTATED RINGERS 1,000 ML IV SCH (14:06)
[2017-05-08] MEDS: INSULIN GLARGINE 100 UNIT/ML SUBCUT SCH (21:05)
[2017-05-09] MEDS: ALBUTEROL/IPRATROPIUM 3 ML NEB RESP TX SCH ×5 (00:31→19:54)
[2017-05-09] MEDS: LACTATED RINGERS 1,000 ML IV SCH ×2 (02:50→16:06)
[2017-05-09] MEDS: cefTRIAXone 1,000 MG in SYRINGE 1 EACH IV SCH (04:05)
[2017-05-09] MEDS: AZITHROMYCIN INJ 500 MG in SODIUM CHLORIDE 0.9% 250 ML IV SCH (04:05)
[2017-05-09 06:30] LABS: Basophils % 0.1 % (0.0-0.8); Hematocrit 52.1 VOL% (42.0-52.0); Hemoglobin 16.9 GM/DL (14.0-18.0); Immature Granulocytes % 0.8 %; Immature Granulocytes Absolute 0.08 #; Lymphocytes # 2.9 10*3/uL (1.4-4.0); Lymphocytes % 29.2 % (21.2-54.2); Mean Corpuscular HGB Conc 32.4 GM/DL (32-36); Mean Corpuscular Hemoglobin 30 PG (27-34); Mean Corpuscular Volume 91.2 FL (87-102); Mean Platelet Volume 12.4 FL (9.6-12.0); Monocytes # 1.2 10*3/uL (0.11-0.8); Monocytes % 11.4 % (1.7-12.7); NRBC # 0.02 10*3/uL; Neutrophils # 5.9 10*3/uL (1.4-7.4); Neutrophils % 58.5 % (38.7-73.9); Platelet Count 136 T/CUMM (130-400); Red Blood Count 5.71 MC/CUMM (3.8-5.5); Red Cell Distribution Width 14.4 % (9.3-17.3); White Blood Count 10.1 T/CUMM (4-12)
[2017-05-09 06:53] LABS: Calcium 10.1 MG/DL (8.5-10.1); Osmolality,Calculated 333.9 MOS/KG (273-304)
[2017-05-09] MEDS: ASPIRIN EC 81 MG TABLET PO SCH (08:03)
[2017-05-09] MEDS: ISOSORBIDE MONONITRATE 60 MG TABLET PO SCH (08:03)
[2017-05-09] MEDS: LINACLOTIDE 145 MCG CAPSULE PO SCH (08:03)
[2017-05-09] MEDS: CARVEDILOL 25 MG TABLET PO SCH ×2 (08:03→16:06)
[2017-05-09] MEDS: INSULIN REGULAR 100 UNIT/ML SUBCUT SCH ×4 (08:36→21:03)
[2017-05-09] MEDS: PANTOPRAZOLE 40 MG VIAL IV SCH (09:05)
[2017-05-09] MEDS ORDERED: POTASSIUM CHLORIDE INJ 40 MEQ in SODIUM CHLORIDE 0.9% 500 ML IV ONE (12:30)
[2017-05-09] MEDS: POTASSIUM CHLORIDE RIDER 10 MEQ in PREMIX 1 EACH IV SCH ×2 (15:11→15:12)
[2017-05-09] MEDS ORDERED: DEXTROSE 5% 500 ML IV SCH (18:30)
[2017-05-09] MEDS ORDERED: APIXABAN 5 MG TABLET PO SCH (21:00)
[2017-05-09] MEDS: POTASSIUM CHLORIDE INJ 30 MEQ in DEXTROSE 5% 1,000 ML IV SCH (21:01)
[2017-05-09] MEDS: INSULIN GLARGINE 100 UNIT/ML SUBCUT SCH (21:03)
[2017-05-09] MEDS ORDERED: ACETAMINOPHEN 650 MG SUPP RECTAL PRN (22:49)
[2017-05-09] MEDS ORDERED: PIPERACILLIN/TAZOBACTAM 3,375 MG in SODIUM CHLORIDE 0.9% 100 ML IV SCH (23:00)
[2017-05-09] MEDS ORDERED: ALBUTEROL/IPRATROPIUM 3 ML NEB RESP TX SCH (23:00)
[2017-05-09] MEDS ORDERED: VANCOMYCIN INJ 1,250 MG in SODIUM CHLORIDE 0.9% 250 ML IV SCH (23:30)
[2017-05-10 00:11] VITALS: BP 89/71
[2017-05-10] MEDS: POTASSIUM CHLORIDE INJ 30 MEQ in DEXTROSE 5% 1,000 ML IV SCH (04:27)
== END 2017-05-10 02:20 | disposition expired | DRG 64 ==
LOC: EDUNIT# → EDBD → N.ED 22:44 → N.EDINP 05-07 03:14 → N.5E 05-07 03:56
PROVIDERS: ADMIT Internal Medicine; ATTEND Internal Medicine